=== PATIENT | female | born 1935 | race Caucasian/White ===

== ENCOUNTER 2017-07-07 23:07 | Inpatient (IN) | payer MEDICARE ==
[2017-07-08] MEDS ORDERED: Promethazine HCl 25 MG/ML VIAL ONE
[2017-07-08 00:04] LABS: #Eosinphils 0.1 thou/uL (0.0-0.7); #Lymphocytes 0.8 thou/uL (1.20-3.40); #Monocytes 0.6 thou/uL (0.11-0.59); #Neutrophils 11.3 thou/uL (1.40-6.50); %Basophils 0.3 % (0.0-1.0); %Eosinophils 0.8 % (0.0-10.0); %Monocytes 4.3 % (0.0-10.0); %Neutrophils 88.6 % (42.0-75.0); Mean Corpuscular HGB CONC 33.5 g/dL (32.0-36.0); Mean Corpuscular Hemoglobin 29.3 pg (27.0-31.0); Mean Corpuscular Volume 87.5 fl (81.0-99.0); Mean Platelet Volume 6.7 fL (7.4-10.4); Platelet Count 186 thou/uL (130-400); RBC Distribution Width 13.7 % (11.5-14.5); Red Blood Cell (RBC) Count 4.45 mill/uL (4.20-5.40); White Blood Cell (WBC) Count 12.8 thou/uL (4.8-10.8)
[2017-07-08 00:17] LABS: ALT (SGPT) 11 U/L (8-55); AST (SGOT) 14 U/L (5-34); Albumin 3.6 g/dL (3.4-4.8); Alkaline Phosphatase 62 U/L (40-150); Anion Gap 17 mmol/L (10-20); BUN (Urea Nitrogen) 29 mg/dL (9.8-20.1); Bilirubin, Total 0.4 mg/dL (0.2-1.2); Calc. Creatinine Clearance 0 mL/min (70-130); Calcium 9.1 mg/dL (7.8-10.44); Carbon Dioxide 21 mmol/L (23-31); Chloride 107 mmol/L (98-107); Estimated GFR-MDRD 34; Globulin 3.3 g/dL (2.4-3.5); Glucose 207 mg/dL (83-110); Lipase 12 U/L (8-78); Potassium 4.4 mmol/L (3.5-5.1); Protein, Total 6.9 g/dL (6.0-8.3); Sodium 141 mmol/L (136-145)
[2017-07-08 00:18] LABS: CKMB 0.8 ng/mL (0-6.6); Troponin I Less than 0.010 ng/mL (< 0.028)
[2017-07-08 03:35] LABS: Bilirubin Small (Negative); Blood, Urine Negative (Negative); Clarity Cloudy (Clear); Glucose, Urine (Dipstick) Negative (Negative); Leukocyte Small (Negative); Nitrite Positive (Negative); Protein, Urine (Dipstick) Negative (Neg-Trace); Urobilinogen 0.2 mg/dL (0.2-1.0)
[2017-07-08 03:45] LABS: Bacteria/HPF 2+ HPF (None Seen); RBC/HPF 0-3 HPF (0-3); WBC/HPF 0-3 HPF (0-3)
[2017-07-08 04:32] VITALS: BMI 30.4
[2017-07-08] MEDS ORDERED: Ondansetron ODT 4 MG TAB SL PRN (04:45)
[2017-07-08] MEDS ORDERED: Ondansetron HCl/PF 4 MG/2 ML Vial IVP PRN (04:45)
[2017-07-08] MEDS: Sodium Chloride 0.9% 1,000 ML IV SCH ×4 (05:16→13:58)
--- NOTE | 2017-07-08 07:07 | RAD ---
UPRIGHT PORTABLE CHEST 1 VIEW: Date: 07/07/17 HISTORY: 82-year-old female with nausea, vomiting, diarrhea, hypoxia, and cough. COMPARISON: 11/23/14. FINDINGS: Minimal cardiomegaly. Left ICD. Minimal scattered stable chronic linear and interstitial changes bila terally, unchanged from the prior exam. No confluent pneumonia or overt edema. IMPRESSION: Stable chronic lung changes. Stable cardiomegaly and atherosclerosis. No evidence of pneumonia or oth er overt acute process. POS: [facility]
[2017-07-08] MEDS ORDERED: Bisacodyl 5 MG TAB PO PRN (09:16)
[2017-07-08] MEDS ORDERED: Milk Of Magnesia 30 ML UDCUP PO PRN (09:16)
[2017-07-08] MEDS ORDERED: Mag-Al 1200 mg/1200 mg/30 ML UDCUP PO PRN (09:16)
[2017-07-08] MEDS ORDERED: Mag-Al Plus 1200 MG/1200 MG/120 MG/30 ML UDCUP PO PRN (10:08)
[2017-07-08] MEDS: Gabapentin 300 MG CAP PO SCH ×2 (14:42→21:34)
[2017-07-08] MEDS ORDERED: cefTRIAXone\\ROCEPHIN 1 GM in Sodium Chloride 0.9% 100 ML IVPB SCH (19:15)
[2017-07-08] MEDS ORDERED: Dextrose 50% Abboject 50 ML SYRINGE SLOW IVP PRN (19:19)
[2017-07-08] MEDS ORDERED: Insulin Regular 300 UNITS/3 ML VIAL SC PRN ×2 (19:19)
[2017-07-08] MEDS ORDERED: Dextrose 5% in Water 1,000 ML IV PRN (19:19)
[2017-07-08] MEDS: Melatonin 3 MG TAB PO SCH (21:34)
[2017-07-08] MEDS: Bisacodyl 5 MG TAB PO SCH (21:36)
[2017-07-08] MEDS: Acetaminophen 325 MG TAB PO PRN (21:48)
--- NOTE | 2017-07-08 23:52 | HP ---
DATE OF ADMISSION: 07/08/2017 CHIEF COMPLAINT: Generalized weakness with nausea and diarrhea. HISTORY OF PRESENT ILLNESS: Patient is an 82-year-old white female who reports overall worsening con ditional status since having back surgery several months ago. She has been having left mobility. Giovana velázquez reports 2 to 3 days prior to presentation to the emergency room on the day of admission. She began having loose stools, nausea, decreased appetite, overall malaise and generalized weakness. She got to the point where she was unable to get out of bed, extremely weak and presented to the emergency ro om brought by her daughters. Apparently, a day prior to the day in the emergency room, she actually fell because of her generalized weakness and was evaluated at the outside ER facility and sent home. Patient reports that she may be having some fevers and chills. She reports concentrated and dark ur ine. Denies any back pain, although she has had some diffuse abdominal discomfort. She is unsure if she had any weight loss or weight gain. She had no chest pain or shortness of breath. PAST MEDICAL HISTORY: 1. Diabetes mellitus, diet controlled. 2. Coronary artery disease, status post stent placement. 3. History of pacemaker placement. 4. History of surgical hypothyroidism. 5. History of hyperlipidemia. 6. Hypertension. 7. Generalized osteoarthritis. 8. Chronic back condition. PAST SURGICAL HISTORY: 1. Back surgery as above. 2. Thyroidectomy. 3. Hysterectomy. 4. Right knee replacement x2. 5. History of left knee replacement. 6. History of prior lumbar laminectomy previous to her recent surgery. 7. 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 8. Cholecystectomy. SOCIAL HISTORY: Patient lives alone, but lives right next to an apartment next to her daughter. She walks with a walker. Denies alcohol, smoking, or social drug use. FAMILY HISTORY: Noncontributory. ALLERGIES: She reports allergy to PENICILLIN as well as LEVAQUIN that was given to her on recent adm ission, she has taken Rocephin without allergy. CURRENT MEDICATIONS: Levothyroxine 125 mcg daily, Dulcolax 5 mg p.o. b.i.d., Lipitor 10 mg p.o. at b edtime, benazepril 20 mg daily, amlodipine 5 mg daily. REVIEW OF SYSTEMS: Patient reports in addition to above no recent URI-like symptoms. No cough repor elizabeth by patient. No recent visual changes. Patient did not check her blood sugars regularly, but rep orts her appetite was good until her recent GI symptoms. Patient denies any chest pain or shortness of breath. She has had no significant weight loss or weight gain reported. She reports no rashes or lesions and patient denies depression. PHYSICAL EXAMINATION: GENERAL: Obese white female, alert and oriented x3, but easily confused, but in no apparent distress . VITAL SIGNS: Blood pressure 138/68, respiratory rate is 16, pulse is 82. HEENT: Atraumatic, normocephalic. Extraocular movements are intact. Pupils are equal, round, and r eactive to light and accommodation. Oropharynx, mucous membranes were slightly dry. NECK: Supple. No masses palpated. CHEST: Had some faint, inspiratory rales bilaterally. HEART: Regular rate and rhythm with occasional ectopic beat. ABDOMEN: Obese, soft. Bowel sounds positive in all 4 quadrants, slight tenderness to deep palpation over the epigastric and left lower quadrant without rebound or guarding. EXTREMITIES: Shows no cyanosis, clubbing, or edema. LABORATORY AND X-RAY FINDINGS: Chest x-ray showed no acute findings. Urinalysis was consistent with UTI with 2+ bacteria and leukocyte esterase positive, wbc's positive as well. Comprehensive metabol ic panel showed signs of dehydration with elevated creatinine 1.5 and elevated BUN 29. CBC showed a white count of 12,600. ASSESSMENT AND PLAN: 1. Urinary tract infection. We will start the patient on Rocephin, which she has taken before. We will obtain urine and blood cultures, which were not done in the emergency room. This will be drawn prior to starting her antibiotics. 2. Dehydration. We will start patient on IV fluids plus oral rehydration as tolerated. 3. Diabetes mellitus. We will do Accu-Cheks q.a.c. and at bedtime and follow diabetic diet. 4. Hypertension. Continue current medications and follow up blood pressures. 5. Generalized weakness, likely secondary to #1 above. We will start patient on physical therapy an d occupational therapy. 6. Possible gastritis. If the urine cultures are negative, is likely the gastritis it is causing he r weakness. We will encourage p.o. as tolerated. We will also get a flu test just to verify this is an atypical presentation of influenza. Patient's case will be discussed with Dr. Jalyn Gerardo, who will be covering for me in the next 24 hours.
[2017-07-09] MEDS: Levothyroxine Sodium 100 MCG TAB PO SCH (06:15)
[2017-07-09] MEDS: Levothyroxine Sodium 25 MCG TAB PO SCH (06:15)
[2017-07-09 07:04] LABS: ALT (SGPT) 9 U/L (8-55); AST (SGOT) 11 U/L (5-34); Albumin 3.2 g/dL (3.4-4.8); Alkaline Phosphatase 52 U/L (40-150); Anion Gap 13 mmol/L (10-20); BUN (Urea Nitrogen) 19 mg/dL (9.8-20.1); Bilirubin, Total 0.3 mg/dL (0.2-1.2); Calc. Creatinine Clearance 50 mL/min (70-130); Calcium 9.1 mg/dL (7.8-10.44); Carbon Dioxide 21 mmol/L (23-31); Chloride 114 mmol/L (98-107); Estimated GFR-MDRD 50; Globulin 2.9 g/dL (2.4-3.5); Glucose 126 mg/dL (83-110); Protein, Total 6.1 g/dL (6.0-8.3); Sodium 144 mmol/L (136-145)
[2017-07-09 07:28] LABS: #Basophils 0.1 thou/uL (0.0-0.2); #Eosinphils 0.2 thou/uL (0.0-0.7); #Lymphocytes 1.5 thou/uL (1.20-3.40); #Monocytes 0.5 thou/uL (0.11-0.59); #Neutrophils 5.5 thou/uL (1.40-6.50); %Basophils 0.9 % (0.0-1.0); %Eosinophils 3.2 % (0.0-10.0); %Lymphocytes 19.5 % (21.0-51.0); %Neutrophils 70.5 % (42.0-75.0); Hemoglobin 11.3 g/dL (12.0-16.0); Mean Corpuscular Hemoglobin 29.8 pg (27.0-31.0); Mean Corpuscular Volume 87.5 fl (81.0-99.0); Mean Platelet Volume 6.2 fL (7.4-10.4); Platelet Count 149 thou/uL (130-400); RBC Distribution Width 13.9 % (11.5-14.5); Red Blood Cell (RBC) Count 3.79 mill/uL (4.20-5.40); White Blood Cell (WBC) Count 7.8 thou/uL (4.8-10.8)
--- NOTE | 2017-07-09 08:06 | RAD ---
CHEST ONE VIEW: HISTORY: Pneumonia. COMPARISON: 07/07/2017 FINDINGS: Portable upright chest demonstrates a left-sided transvenous pacemaker with lead position over the ri ght atrium and right ventricle. Heart is enlarged. There are patchy interstitial and, to a lesser e xtent, alveolar opacities involving the lung parenchyma. The degree of opacification has developed s azam the prior examination. There is no significant pleural effusion. No pneumothorax. IMPRESSION: Interstitial and alveolar opacities. Multilobar infiltrate. Continued surveillance. POS: [facility]
[2017-07-09] MEDS: Bisacodyl 5 MG TAB PO SCH ×2 (08:46→21:51)
[2017-07-09] MEDS: Atorvastatin Calcium 10 MG TAB PO SCH (08:46)
[2017-07-09] MEDS: Lisinopril 20 MG TAB PO SCH (08:46)
[2017-07-09] MEDS: Gabapentin 300 MG CAP PO SCH ×3 (08:46→21:50)
[2017-07-09] MEDS: Oxybutynin 5 MG TAB PO SCH (08:46)
[2017-07-09] MEDS: Folic Acid 1 MG TAB PO SCH (08:47)
[2017-07-09] MEDS: Pantoprazole 40 MG GRANULES PACKET PO SCH (08:47)
[2017-07-09] MEDS: Polyethylene Glycol 3350 17 GM Packet PO SCH (08:47)
[2017-07-09] MEDS ORDERED: Donepezil HCl 10 MG TAB PO SCH (09:00)
[2017-07-09] MEDS: Azithromycin 500 MG in Sodium Chloride 0.9% 250 ML 250 ML IVPB SCH (09:34)
[2017-07-09] MEDS: Amlodipine 5 MG TAB PO SCH (09:38)
[2017-07-09] MEDS ORDERED: cefTRIAXone\\ROCEPHIN 1 GM in Sodium Chloride 0.9% 100 ML IVPB SCH (21:00)
[2017-07-09] MEDS: Melatonin 3 MG TAB PO SCH (21:49)
[2017-07-09] MEDS: Acetaminophen 325 MG TAB PO PRN (21:50)
[2017-07-09] MEDS ORDERED: cefTRIAXone\\ROCEPHIN 1 GM, Syringe 0.4 ML in Sterile Water 9.6 ML SLOW IVP SCH (22:00)
[2017-07-09] MEDS ORDERED: cefTRIAXone\\ROCEPHIN 1 GM VIAL SLOW IVP SCH (22:15)
[2017-07-10 05:41] LABS: #Basophils 0.1 thou/uL (0.0-0.2); #Eosinphils 0.3 thou/uL (0.0-0.7); #Lymphocytes 2.1 thou/uL (1.20-3.40); #Monocytes 0.6 thou/uL (0.11-0.59); #Neutrophils 4.3 thou/uL (1.40-6.50); %Basophils 0.8 % (0.0-1.0); %Eosinophils 3.8 % (0.0-10.0); %Lymphocytes 28.3 % (21.0-51.0); %Monocytes 8.2 % (0.0-10.0); %Neutrophils 58.8 % (42.0-75.0); Hemoglobin 10.9 g/dL (12.0-16.0); Mean Corpuscular HGB CONC 31.9 g/dL (32.0-36.0); Mean Corpuscular Volume 87.9 fl (81.0-99.0); Mean Platelet Volume 6.2 fL (7.4-10.4); Platelet Count 179 thou/uL (130-400); RBC Distribution Width 13.6 % (11.5-14.5); White Blood Cell (WBC) Count 7.4 thou/uL (4.8-10.8)
[2017-07-10 05:43] LABS: Anion Gap 14 mmol/L (10-20); BUN (Urea Nitrogen) 15 mg/dL (9.8-20.1); Calc. Creatinine Clearance 52 mL/min (70-130); Calcium 9.6 mg/dL (7.8-10.44); Carbon Dioxide 23 mmol/L (23-31); Chloride 111 mmol/L (98-107); Estimated GFR-MDRD 53; Glucose 117 mg/dL (83-110); Potassium 3.7 mmol/L (3.5-5.1); Sodium 144 mmol/L (136-145)
[2017-07-10] MEDS: Levothyroxine Sodium 100 MCG TAB PO SCH (06:37)
[2017-07-10] MEDS: Levothyroxine Sodium 25 MCG TAB PO SCH (06:37)
--- NOTE | 2017-07-10 08:29 | RAD ---
PORTABLE CHEST ONE VIEW: Date: 07-10-17 Time: 5:34 a.m. History: Pneumonia. FINDINGS/IMPRESSION: Comparison is made with exams of 07-09-17, 07-07-17 and 11-23-14. Heart is enlarged. The aorta is tortuous. Left sided pacing device remains in place. Chronic changes are present. No lobar consolidation, pneumothoraces, or large effusions are identified. POS: [facility]
[2017-07-10] MEDS: Azithromycin 500 MG in Sodium Chloride 0.9% 250 ML 250 ML IVPB SCH (08:50)
[2017-07-10] MEDS: Amlodipine 5 MG TAB PO SCH (08:55)
[2017-07-10] MEDS: Polyethylene Glycol 3350 17 GM Packet PO SCH (08:55)
[2017-07-10] MEDS: Pantoprazole 40 MG GRANULES PACKET PO SCH (08:55)
[2017-07-10] MEDS: Folic Acid 1 MG TAB PO SCH (08:56)
[2017-07-10] MEDS: Oxybutynin 5 MG TAB PO SCH (08:56)
[2017-07-10] MEDS: Gabapentin 300 MG CAP PO SCH ×3 (08:56→20:55)
[2017-07-10] MEDS: Bisacodyl 5 MG TAB PO SCH ×2 (08:56→20:54)
[2017-07-10] MEDS: Lisinopril 20 MG TAB PO SCH (08:56)
[2017-07-10] MEDS: Atorvastatin Calcium 10 MG TAB PO SCH (08:56)
[2017-07-10] MEDS ORDERED: cefTRIAXone\\ROCEPHIN 1 GM VIAL SLOW IVP SCH (09:00)
[2017-07-10] MEDS: Cephalexin 250 MG CAP PO SCH (20:54)
[2017-07-10] MEDS: Melatonin 3 MG TAB PO SCH (20:55)
[2017-07-10] MEDS: Acetaminophen 325 MG TAB PO PRN (22:43)
[2017-07-11] MEDS: Levothyroxine Sodium 100 MCG TAB PO SCH (05:52)
[2017-07-11] MEDS: Levothyroxine Sodium 25 MCG TAB PO SCH (05:52)
[2017-07-11 07:06] VITALS: BP 143/82; TEMP 98.5
[2017-07-11] MEDS: Polyethylene Glycol 3350 17 GM Packet PO SCH (09:38)
[2017-07-11] MEDS: Pantoprazole 40 MG GRANULES PACKET PO SCH (09:38)
[2017-07-11] MEDS: Cephalexin 250 MG CAP PO SCH (09:39)
[2017-07-11] MEDS: Oxybutynin 5 MG TAB PO SCH (09:39)
[2017-07-11] MEDS: Amlodipine 5 MG TAB PO SCH (09:39)
[2017-07-11] MEDS: Atorvastatin Calcium 10 MG TAB PO SCH (09:39)
[2017-07-11] MEDS: Lisinopril 20 MG TAB PO SCH (09:39)
[2017-07-11] MEDS: Gabapentin 300 MG CAP PO SCH (09:39)
[2017-07-11] MEDS: Bisacodyl 5 MG TAB PO SCH (09:39)
[2017-07-11] MEDS: Folic Acid 1 MG TAB PO SCH (09:40)
--- NOTE | 2017-07-11 14:11 | DIS ---
DATE OF ADMISSION: 07/08/2017 DATE OF TRANSFER: 07/11/2017 ADMISSION DIAGNOSES: 1. Gastroenteritis. 2. Dehydration. 3. Urinary tract infection. 4. Hypertension. 5. Hypothyroidism. DISCHARGE DIAGNOSES: 1. Gastroenteritis. 2. Dehydration. 3. Urinary tract infection. 4. Hypertension. 5. Hypothyroidism. 6. Physical deconditioning. ATTENDING PHYSICIAN: Dr. Florecita Cuenca with Dr. Jalyn Gerardo covering for Dr. Cuenca on 07/09/2017, Dr. Husain covering for 07/10/2017, and Dr. Jalyn Gerardo covering on 07/11/2017. HISTORY AND PHYSICAL: Please see dictated report from the date of admission. PROCEDURES: 1. Chest x-ray from the date of admission shows stable chronic lung changes. Stable cardiomegaly and atherosclerosis. No evidence of pneumonia or other overt acute process. 2. Chest x-ray from 07/09/2017 shows interstitial and alveolar opacities. Multilobar infiltrate. Continued surveillance. 3. Chest x-ray from 07/10/2017 showed the heart is enlarged. Aorta is tortuous. Left-sided pacing device remains in place. Chronic changes are present. No lobar consolidation, pneumothoraces, or large effusions are identified. HOSPITAL COURSE: Ms. Patel is an 82-year-old female who presented to the emergency room with severe nausea, vomiting, diarrhea, and hypotension. She was aggressively hydrated with 2 liters of IV fluids in the ER and continued on the floor at a high rate resuscitation. Her blood pressures improved and we were able to restart home antihypertensive. She was also found to have urinalysis that was significant and urine culture eventually grew out E. coli sensitive to cephalosporins. She was initially treated with Rocephin and this was transitioned over to Keflex for a total of 14-day oral course. During her admission, she did have some findings on chest x-ray suggestive of possible multilobar infiltrate. She received copious fluids prior to that and had no elevation of her white count, was afebrile, and demonstrated only a dry cough. The chest x-ray was repeated the following day after Zithromax was added for additional coverage and was negative. Suspect that these changes were either atelectasis or chronic changes or early fluid overload that resolved without treatment. Therefore, the Rocephin and Zithromax were discontinued, and she was changed to oral treatment for her UTI. The patient has been significantly deconditioned from her hospital stay from her illness and thus will require PT and OT for strengthening prior to going back home. Today, she will be transferred to our swing bed unit for therapy. She also has a history of hypothyroidism. TSH performed during her hospitalization was within normal range. DISPOSITION: Transfer to swing bed. MEDICATIONS: See list. FOLLOWUP: Will be with her primary care physician, Dr. Russell in [place] per swing bed discharge. NIECY
[2017-07-12] MEDS ORDERED: Oxybutynin 5 MG TAB PO SCH (09:00)
== END 2017-07-11 12:55 | DRG 690 ==
LOC: BURERS 23:07 → OBSVTOIN 07-08 01:40 → BURMED 07-08 01:40
PROVIDERS: ADMIT Family Medicine; ATTEND Family Medicine
DX: N39.0 Urinary tract infection, site not specified (principal); I95.9 Hypotension, unspecified; E11.9 Type 2 diabetes mellitus without complications; E86.0 Dehydration; I25.10 Atherosclerotic heart disease of native coronary artery without angina pectoris; E78.5 Hyperlipidemia, unspecified; E03.9 Hypothyroidism, unspecified; B96.20 Unspecified Escherichia coli [E. coli] as the cause of diseases classified elsewhere; K29.70 Gastritis, unspecified, without bleeding; I10 Essential (primary) hypertension; Z95.5 Presence of coronary angioplasty implant and graft; Z96.651 Presence of right artificial knee joint; Z88.1 Allergy status to other antibiotic agents; Z88.0 Allergy status to penicillin
CPT/HCPCS: 36415; 36416; 51701; 71010; 80048; 80053; 81003; 81015; 82553; 83605; 83690; 83880; 84443; 84484; 85025; 87040; 87077; 87086; 87186; 87804; 93005; 96361; 96365; A4216; A4353; G8978-GP-CK; G8979-GP-CI; G8987-GO-CL; G8988-GO-CJ; J0456; J0696; J2550; J7050

== ENCOUNTER 2017-07-11 12:09 | Inpatient (IN) | payer MEDICARE ==
[2017-07-11 13:49] VITALS: BMI 29.3
[2017-07-11] MEDS ORDERED: Ondansetron HCl/PF 4 MG/2 ML Vial IVP PRN (14:10)
[2017-07-11] MEDS ORDERED: Milk Of Magnesia 30 ML UDCUP PO PRN (14:11)
[2017-07-11] MEDS ORDERED: Dextrose 50% Abboject 50 ML SYRINGE SLOW IVP PRN (14:16)
[2017-07-11] MEDS ORDERED: Dextrose 5% in Water 1,000 ML IV PRN (14:26)
[2017-07-11] MEDS: Gabapentin 300 MG CAP PO SCH ×2 (15:44→21:32)
[2017-07-11] MEDS: Insulin Regular 300 UNITS/3 ML VIAL SC PRN (18:30)
[2017-07-11] MEDS: Cephalexin 250 MG CAP PO SCH (21:31)
[2017-07-11] MEDS: Acetaminophen 325 MG TAB PO PRN (21:31)
[2017-07-11] MEDS: Melatonin 3 MG TAB PO SCH (21:32)
[2017-07-11] MEDS: Bisacodyl 5 MG TAB PO SCH (21:32)
[2017-07-12] MEDS: Acetaminophen 325 MG TAB PO PRN ×3 (02:21→15:00)
[2017-07-12] MEDS: Levothyroxine Sodium 25 MCG TAB PO SCH (06:31)
[2017-07-12] MEDS: Levothyroxine Sodium 100 MCG TAB PO SCH (06:32)
[2017-07-12] MEDS: Donepezil HCl 10 MG TAB PO SCH (09:11)
[2017-07-12] MEDS: Cephalexin 250 MG CAP PO SCH ×2 (09:11→21:43)
[2017-07-12] MEDS: Polyethylene Glycol 3350 17 GM Packet PO SCH (09:11)
[2017-07-12] MEDS: Atorvastatin Calcium 10 MG TAB PO SCH (09:11)
[2017-07-12] MEDS: Folic Acid 1 MG TAB PO SCH (09:12)
[2017-07-12] MEDS: Amlodipine 5 MG TAB PO SCH (09:12)
[2017-07-12] MEDS: Lisinopril 20 MG TAB PO SCH (09:12)
[2017-07-12] MEDS: Gabapentin 300 MG CAP PO SCH ×3 (09:12→21:43)
[2017-07-12] MEDS: Bisacodyl 5 MG TAB PO SCH ×2 (09:12→21:43)
[2017-07-12] MEDS: Pantoprazole 40 MG GRANULES PACKET PO SCH (09:12)
[2017-07-12] MEDS ORDERED: HYDROcodone/Acetaminophen 5/325 mg Tablet PO PRN (12:39)
[2017-07-12] MEDS: Insulin Regular 300 UNITS/3 ML VIAL SC PRN (18:05)
[2017-07-12] MEDS: Melatonin 3 MG TAB PO SCH (21:43)
[2017-07-13] MEDS: HYDROcodone/Acetaminophen 10/325 mg Tablet PO PRN (04:16)
[2017-07-13] MEDS: Levothyroxine Sodium 100 MCG TAB PO SCH (05:54)
[2017-07-13] MEDS: Levothyroxine Sodium 25 MCG TAB PO SCH (05:54)
[2017-07-13] MEDS: Cephalexin 250 MG CAP PO SCH ×2 (09:32→22:26)
[2017-07-13] MEDS: Gabapentin 300 MG CAP PO SCH ×3 (09:32→22:27)
[2017-07-13] MEDS: Amlodipine 5 MG TAB PO SCH (09:32)
[2017-07-13] MEDS: Donepezil HCl 10 MG TAB PO SCH (09:33)
[2017-07-13] MEDS: Lisinopril 20 MG TAB PO SCH (09:33)
[2017-07-13] MEDS: Bisacodyl 5 MG TAB PO SCH ×2 (09:33→22:27)
[2017-07-13] MEDS: Polyethylene Glycol 3350 17 GM Packet PO SCH (09:33)
[2017-07-13] MEDS: Pantoprazole 40 MG GRANULES PACKET PO SCH (09:33)
[2017-07-13] MEDS: Folic Acid 1 MG TAB PO SCH (09:33)
[2017-07-13] MEDS: Atorvastatin Calcium 10 MG TAB PO SCH (09:33)
[2017-07-13] MEDS ORDERED: Bisacodyl 10 MG SUPP PR PRN (16:37)
[2017-07-13] MEDS ORDERED: Fleet Enema 133 ML BOT PR PRN (16:39)
[2017-07-13] MEDS: Insulin Regular 300 UNITS/3 ML VIAL SC PRN (18:14)
[2017-07-13] MEDS: Melatonin 3 MG TAB PO SCH (22:26)
[2017-07-14] MEDS: HYDROcodone/Acetaminophen 10/325 mg Tablet PO PRN (00:36)
[2017-07-14] MEDS: Levothyroxine Sodium 100 MCG TAB PO SCH (05:56)
[2017-07-14] MEDS: Levothyroxine Sodium 25 MCG TAB PO SCH (05:56)
[2017-07-14] MEDS: Pantoprazole 40 MG GRANULES PACKET PO SCH (09:52)
[2017-07-14] MEDS: Bisacodyl 5 MG TAB PO SCH ×2 (09:53→20:59)
[2017-07-14] MEDS: Atorvastatin Calcium 10 MG TAB PO SCH (09:53)
[2017-07-14] MEDS: Lisinopril 20 MG TAB PO SCH (09:53)
[2017-07-14] MEDS: Donepezil HCl 10 MG TAB PO SCH (09:53)
[2017-07-14] MEDS: Amlodipine 5 MG TAB PO SCH (09:53)
[2017-07-14] MEDS: Cephalexin 250 MG CAP PO SCH ×2 (09:53→20:59)
[2017-07-14] MEDS: Folic Acid 1 MG TAB PO SCH (09:54)
[2017-07-14] MEDS: Gabapentin 300 MG CAP PO SCH ×3 (09:54→20:59)
[2017-07-14] MEDS: Polyethylene Glycol 3350 17 GM Packet PO SCH (09:54)
[2017-07-14] MEDS: Insulin Regular 300 UNITS/3 ML VIAL SC PRN ×3 (12:47→21:11)
[2017-07-14] MEDS: Melatonin 3 MG TAB PO SCH (20:59)
[2017-07-15] MEDS: Levothyroxine Sodium 100 MCG TAB PO SCH (05:03)
[2017-07-15] MEDS: Levothyroxine Sodium 25 MCG TAB PO SCH (05:03)
[2017-07-15] MEDS ORDERED: Cephalexin 250 MG CAP ONE (09:09)
[2017-07-15] MEDS: Donepezil HCl 10 MG TAB PO SCH (09:12)
[2017-07-15] MEDS: Lisinopril 20 MG TAB PO SCH (09:12)
[2017-07-15] MEDS: Polyethylene Glycol 3350 17 GM Packet PO SCH (09:12)
[2017-07-15] MEDS: Atorvastatin Calcium 10 MG TAB PO SCH (09:13)
[2017-07-15] MEDS: Folic Acid 1 MG TAB PO SCH (09:13)
[2017-07-15] MEDS: Amlodipine 5 MG TAB PO SCH (09:13)
[2017-07-15] MEDS: Bisacodyl 5 MG TAB PO SCH ×2 (09:14→20:10)
[2017-07-15] MEDS: Cephalexin 250 MG CAP PO SCH ×2 (09:14→20:10)
[2017-07-15] MEDS: Gabapentin 300 MG CAP PO SCH ×3 (09:14→20:10)
[2017-07-15] MEDS: Pantoprazole 40 MG GRANULES PACKET PO SCH (09:14)
[2017-07-15] MEDS: traMADol HCl 50 MG TAB PO PRN ×2 (09:15→20:10)
[2017-07-15] MEDS: Insulin Regular 300 UNITS/3 ML VIAL SC PRN ×2 (13:40→17:49)
[2017-07-15] MEDS: Melatonin 3 MG TAB PO SCH (20:10)
[2017-07-16] MEDS: Levothyroxine Sodium 25 MCG TAB PO SCH (04:57)
[2017-07-16] MEDS: traMADol HCl 50 MG TAB PO PRN ×2 (04:57→09:24)
[2017-07-16] MEDS: Levothyroxine Sodium 100 MCG TAB PO SCH (04:57)
[2017-07-16] MEDS: Polyethylene Glycol 3350 17 GM Packet PO SCH (09:21)
[2017-07-16] MEDS: Amlodipine 5 MG TAB PO SCH (09:22)
[2017-07-16] MEDS: Acetaminophen 325 MG TAB PO PRN (09:22)
[2017-07-16] MEDS: Gabapentin 300 MG CAP PO SCH ×3 (09:22→22:47)
[2017-07-16] MEDS: Folic Acid 1 MG TAB PO SCH (09:23)
[2017-07-16] MEDS: Atorvastatin Calcium 10 MG TAB PO SCH (09:23)
[2017-07-16] MEDS: Bisacodyl 5 MG TAB PO SCH ×2 (09:23→22:48)
[2017-07-16] MEDS: Lisinopril 20 MG TAB PO SCH (09:23)
[2017-07-16] MEDS: Cephalexin 250 MG CAP PO SCH ×2 (09:23→22:46)
[2017-07-16] MEDS: Pantoprazole 40 MG GRANULES PACKET PO SCH (09:24)
[2017-07-16] MEDS: Donepezil HCl 10 MG TAB PO SCH (09:24)
[2017-07-16] MEDS: Insulin Regular 300 UNITS/3 ML VIAL SC PRN ×2 (13:22→18:15)
[2017-07-16] MEDS: Ondansetron ODT 4 MG TAB PO PRN (15:29)
[2017-07-16 19:25] LABS: #Basophils 0.1 thou/uL (0.0-0.2); #Eosinphils 0.1 thou/uL (0.0-0.7); #Lymphocytes 1.6 thou/uL (1.20-3.40); #Monocytes 0.3 thou/uL (0.11-0.59); #Neutrophils 7.5 thou/uL (1.40-6.50); %Basophils 0.8 % (0.0-1.0); %Eosinophils 0.6 % (0.0-10.0); %Lymphocytes 16.7 % (21.0-51.0); %Monocytes 3.4 % (0.0-10.0); %Neutrophils 78.5 % (42.0-75.0); Hemoglobin 11.8 g/dL (12.0-16.0); Mean Corpuscular HGB CONC 32.4 g/dL (32.0-36.0); Mean Corpuscular Hemoglobin 28.4 pg (27.0-31.0); Mean Corpuscular Volume 87.6 fl (81.0-99.0); Mean Platelet Volume 6.5 fL (7.4-10.4); Platelet Count 234 thou/uL (130-400); RBC Distribution Width 13.7 % (11.5-14.5); Red Blood Cell (RBC) Count 4.16 mill/uL (4.20-5.40); White Blood Cell (WBC) Count 9.6 thou/uL (4.8-10.8)
[2017-07-16 19:43] LABS: ALT (SGPT) 13 U/L (8-55); AST (SGOT) 13 U/L (5-34); Albumin 3.6 g/dL (3.4-4.8); Alkaline Phosphatase 70 U/L (40-150); Anion Gap 17 mmol/L (10-20); BUN (Urea Nitrogen) 17 mg/dL (9.8-20.1); Bilirubin, Total 0.4 mg/dL (0.2-1.2); Calc. Creatinine Clearance 42 mL/min (70-130); Calcium 9.6 mg/dL (7.8-10.44); Carbon Dioxide 25 mmol/L (23-31); Chloride 101 mmol/L (98-107); Estimated GFR-MDRD 41; Globulin 3.5 g/dL (2.4-3.5); Glucose 266 mg/dL (83-110); Potassium 5.2 mmol/L (3.5-5.1); Protein, Total 7.1 g/dL (6.0-8.3); Sodium 138 mmol/L (136-145)
--- NOTE | 2017-07-16 22:16 | RAD ---
PORTABLE CHEST 07/16/17 An AP portable film at 1900 is compared with 07/10 study. There still appears to be some infiltrate in the left lung base, but is no worse than before. Changes over the interval are minimal. There is no congestive change or pleural effusion. Mild cardiomegaly is stable. The cardiac pacer is present as usual. The right lung is clear. IMPRESSION: There is still some left basilar haziness that is presumed to be pneumonia with only minimal changes over time. POS: [facility]
[2017-07-16] MEDS: Oxybutynin 5 MG TAB PO SCH (22:47)
[2017-07-16] MEDS: Melatonin 3 MG TAB PO SCH (22:51)
[2017-07-17] MEDS: Levothyroxine Sodium 25 MCG TAB PO SCH (06:01)
[2017-07-17] MEDS: Levothyroxine Sodium 100 MCG TAB PO SCH (06:01)
[2017-07-17] MEDS: Polyethylene Glycol 3350 17 GM Packet PO SCH (08:50)
[2017-07-17] MEDS: Pantoprazole 40 MG GRANULES PACKET PO SCH (08:50)
[2017-07-17] MEDS: Donepezil HCl 10 MG TAB PO SCH (08:50)
[2017-07-17] MEDS: Amlodipine 5 MG TAB PO SCH (08:50)
[2017-07-17] MEDS: Atorvastatin Calcium 10 MG TAB PO SCH (08:51)
[2017-07-17] MEDS: Folic Acid 1 MG TAB PO SCH (08:51)
[2017-07-17] MEDS: Cephalexin 250 MG CAP PO SCH (08:51)
[2017-07-17] MEDS: Bisacodyl 5 MG TAB PO SCH ×2 (08:51→20:15)
[2017-07-17] MEDS: Gabapentin 300 MG CAP PO SCH ×3 (08:51→20:15)
[2017-07-17] MEDS: Lisinopril 20 MG TAB PO SCH (08:51)
[2017-07-17] MEDS: Insulin Regular 300 UNITS/3 ML VIAL SC PRN ×2 (13:01→18:19)
[2017-07-17] MEDS: Melatonin 3 MG TAB PO SCH (20:15)
[2017-07-17] MEDS: Oxybutynin 5 MG TAB PO SCH (20:16)
[2017-07-18] MEDS: Levothyroxine Sodium 100 MCG TAB PO SCH (06:16)
[2017-07-18] MEDS: Levothyroxine Sodium 25 MCG TAB PO SCH (06:17)
[2017-07-18] MEDS: Amlodipine 5 MG TAB PO SCH (08:45)
[2017-07-18] MEDS: Atorvastatin Calcium 10 MG TAB PO SCH (08:45)
[2017-07-18] MEDS: Donepezil HCl 10 MG TAB PO SCH (08:46)
[2017-07-18] MEDS: Bisacodyl 5 MG TAB PO SCH ×2 (08:46→21:39)
[2017-07-18] MEDS: Folic Acid 1 MG TAB PO SCH (08:47)
[2017-07-18] MEDS: Gabapentin 300 MG CAP PO SCH ×3 (08:47→21:39)
[2017-07-18] MEDS: Lisinopril 20 MG TAB PO SCH (08:47)
[2017-07-18] MEDS: Pantoprazole 40 MG GRANULES PACKET PO SCH (08:47)
[2017-07-18] MEDS: Polyethylene Glycol 3350 17 GM Packet PO SCH (08:47)
[2017-07-18] MEDS: Insulin Regular 300 UNITS/3 ML VIAL SC PRN (13:04)
[2017-07-18] MEDS: Melatonin 3 MG TAB PO SCH (21:38)
[2017-07-18] MEDS: Oxybutynin 5 MG TAB PO SCH (21:39)
[2017-07-18] MEDS: HYDROcodone/Acetaminophen 10/325 mg Tablet PO PRN (23:19)
[2017-07-19] MEDS: Levothyroxine Sodium 100 MCG TAB PO SCH (06:31)
[2017-07-19] MEDS: Levothyroxine Sodium 25 MCG TAB PO SCH (06:31)
[2017-07-19] MEDS: Folic Acid 1 MG TAB PO SCH (08:41)
[2017-07-19] MEDS: Amlodipine 5 MG TAB PO SCH ×2 (08:41→08:44)
[2017-07-19] MEDS: Donepezil HCl 10 MG TAB PO SCH (08:41)
[2017-07-19] MEDS: Lisinopril 20 MG TAB PO SCH (08:45)
[2017-07-19] MEDS: Pantoprazole 40 MG GRANULES PACKET PO SCH (08:45)
[2017-07-19] MEDS: Gabapentin 300 MG CAP PO SCH ×3 (08:45→22:30)
[2017-07-19] MEDS: Bisacodyl 5 MG TAB PO SCH ×2 (08:45→22:30)
[2017-07-19] MEDS: Atorvastatin Calcium 10 MG TAB PO SCH (08:45)
[2017-07-19] MEDS: Polyethylene Glycol 3350 17 GM Packet PO SCH (08:45)
[2017-07-19] MEDS: Insulin Regular 300 UNITS/3 ML VIAL SC PRN ×3 (12:15→22:29)
[2017-07-19] MEDS: Melatonin 3 MG TAB PO SCH (22:29)
[2017-07-19] MEDS: Oxybutynin 5 MG TAB PO SCH (22:30)
[2017-07-19] MEDS: HYDROcodone/Acetaminophen 10/325 mg Tablet PO PRN (22:30)
[2017-07-20] MEDS: Levothyroxine Sodium 25 MCG TAB PO SCH (05:49)
[2017-07-20] MEDS: Levothyroxine Sodium 100 MCG TAB PO SCH (05:49)
[2017-07-20] MEDS: Donepezil HCl 10 MG TAB PO SCH (08:52)
[2017-07-20] MEDS: Folic Acid 1 MG TAB PO SCH (08:52)
[2017-07-20] MEDS: Atorvastatin Calcium 10 MG TAB PO SCH (08:52)
[2017-07-20] MEDS: Lisinopril 20 MG TAB PO SCH (08:52)
[2017-07-20] MEDS: Gabapentin 300 MG CAP PO SCH ×3 (08:53→20:24)
[2017-07-20] MEDS: Polyethylene Glycol 3350 17 GM Packet PO SCH (08:54)
[2017-07-20] MEDS: Pantoprazole 40 MG GRANULES PACKET PO SCH (08:54)
[2017-07-20] MEDS: Bisacodyl 5 MG TAB PO SCH ×2 (08:54→20:25)
[2017-07-20] MEDS: Amlodipine 5 MG TAB PO SCH (09:02)
[2017-07-20] MEDS: Insulin Regular 300 UNITS/3 ML VIAL SC PRN ×3 (12:35→20:25)
[2017-07-20] MEDS: Melatonin 3 MG TAB PO SCH (20:24)
[2017-07-20] MEDS: Oxybutynin 5 MG TAB PO SCH (20:25)
[2017-07-21] MEDS: Levothyroxine Sodium 25 MCG TAB PO SCH (05:35)
[2017-07-21] MEDS: Levothyroxine Sodium 100 MCG TAB PO SCH (05:36)
[2017-07-21] MEDS: Pantoprazole 40 MG GRANULES PACKET PO SCH (08:53)
[2017-07-21] MEDS: Donepezil HCl 10 MG TAB PO SCH (08:53)
[2017-07-21] MEDS: Gabapentin 300 MG CAP PO SCH ×3 (08:53→21:37)
[2017-07-21] MEDS: Folic Acid 1 MG TAB PO SCH (08:54)
[2017-07-21] MEDS: Atorvastatin Calcium 10 MG TAB PO SCH (08:54)
[2017-07-21] MEDS: Bisacodyl 5 MG TAB PO SCH ×2 (08:54→21:37)
[2017-07-21] MEDS: Amlodipine 5 MG TAB PO SCH (08:55)
[2017-07-21] MEDS: Lisinopril 20 MG TAB PO SCH (08:55)
[2017-07-21] MEDS: Polyethylene Glycol 3350 17 GM Packet PO SCH (08:56)
[2017-07-21] MEDS: Insulin Regular 300 UNITS/3 ML VIAL SC PRN ×3 (08:56→21:37)
[2017-07-21] MEDS: Melatonin 3 MG TAB PO SCH (21:36)
[2017-07-21] MEDS: Oxybutynin 5 MG TAB PO SCH (21:36)
[2017-07-22] MEDS: traMADol HCl 50 MG TAB PO PRN ×2 (00:57→22:42)
[2017-07-22] MEDS: Levothyroxine Sodium 25 MCG TAB PO SCH (06:27)
[2017-07-22] MEDS: Levothyroxine Sodium 100 MCG TAB PO SCH (06:27)
--- NOTE | 2017-07-22 07:06 | RAD ---
PORTABLE CHEST: Date: 07/22/17 An AP portable film at 0544 hours is compared with the 07/16/17 study. FINDINGS: While the left base is not seen optimally, there does appear to be slight improvement in the infiltra te here. The right lung is relatively clear. Cardiomegaly is unchanged and there are no congestive fi ndings. No effusions are seen. IMPRESSION: While not seen optimally, there is some improvement in the left basilar infiltrate since 07/16/17. POS: [facility]
[2017-07-22] MEDS: Bisacodyl 5 MG TAB PO SCH ×2 (08:53→20:56)
[2017-07-22] MEDS: Lisinopril 20 MG TAB PO SCH (08:53)
[2017-07-22] MEDS: Polyethylene Glycol 3350 17 GM Packet PO SCH (08:53)
[2017-07-22] MEDS: Folic Acid 1 MG TAB PO SCH (08:54)
[2017-07-22] MEDS: Pantoprazole 40 MG GRANULES PACKET PO SCH (08:54)
[2017-07-22] MEDS: Atorvastatin Calcium 10 MG TAB PO SCH (08:54)
[2017-07-22] MEDS: Donepezil HCl 10 MG TAB PO SCH (08:54)
[2017-07-22] MEDS: Gabapentin 300 MG CAP PO SCH ×3 (08:54→20:31)
[2017-07-22] MEDS: Amlodipine 5 MG TAB PO SCH (08:54)
[2017-07-22] MEDS: Insulin Regular 300 UNITS/3 ML VIAL SC PRN ×3 (12:51→20:38)
[2017-07-22] MEDS: Melatonin 3 MG TAB PO SCH (20:31)
[2017-07-22] MEDS: Oxybutynin 5 MG TAB PO SCH (20:31)
[2017-07-23] MEDS: HYDROcodone/Acetaminophen 10/325 mg Tablet PO PRN ×2 (00:19→13:57)
[2017-07-23] MEDS: Levothyroxine Sodium 100 MCG TAB PO SCH (06:37)
[2017-07-23] MEDS: Levothyroxine Sodium 25 MCG TAB PO SCH (06:37)
[2017-07-23] MEDS: Polyethylene Glycol 3350 17 GM Packet PO SCH (08:32)
[2017-07-23] MEDS: Amlodipine 5 MG TAB PO SCH (08:32)
[2017-07-23] MEDS: Lisinopril 20 MG TAB PO SCH (08:32)
[2017-07-23] MEDS: Donepezil HCl 10 MG TAB PO SCH (08:32)
[2017-07-23] MEDS: Folic Acid 1 MG TAB PO SCH (08:32)
[2017-07-23] MEDS: Atorvastatin Calcium 10 MG TAB PO SCH (08:33)
[2017-07-23] MEDS: Insulin Regular 300 UNITS/3 ML VIAL SC PRN ×4 (08:33→21:06)
[2017-07-23] MEDS: Pantoprazole 40 MG GRANULES PACKET PO SCH (08:33)
[2017-07-23] MEDS: Gabapentin 300 MG CAP PO SCH (08:33)
[2017-07-23] MEDS: Bisacodyl 5 MG TAB PO SCH ×2 (10:00→21:08)
[2017-07-23] MEDS: Acetaminophen 325 MG TAB PO PRN (17:59)
--- NOTE | 2017-07-23 20:05 | RAD ---
LEFT WRIST THREE VIEWS: Date: 07-23-17 FINDINGS: There are substantial degenerative changes in the first carpal metacarpal joint. There probably was a n old fracture at the base of the first metacarpal. No acute fractures were identified. There is some calcification in the region of the triangular fibrocartilage. This could sometimes be seen in variou s deposition diseases. The scapholunate distance is a little difficult to assess accurately in this p atient, but may be borderline. The remaining carpals appear intact. Also noted were severe degenerati ve changes of the IP joint of the thumb. IMPRESSION: Chronic changes as listed above. No acute bony findings. POS: [facility]
--- NOTE | 2017-07-23 20:07 | RAD ---
LEFT HAND THREE VIEWS: Date: 07-23-17 FINDINGS: No acute fracture was seen. Severe degenerative changes are present in the IP joint of the thumb and the PIP joint of the index finger. Lesser degenerative changes are seen in all other IP joints. The M CP joints are relatively uninvolved. Moderately severe arthritis is seen in the first carpal metacarp al joint. Some calcification of the triangular fibrocartilage is seen in the medial compartment of th e wrist. IMPRESSION: Chronic and somewhat severe degenerative changes as noted. POS: [facility]
[2017-07-23] MEDS: Melatonin 3 MG TAB PO SCH (21:07)
[2017-07-23] MEDS: Oxybutynin 5 MG TAB PO SCH (21:08)
[2017-07-23] MEDS: Gabapentin 100 MG CAP PO SCH (21:09)
[2017-07-24] MEDS: Levothyroxine Sodium 25 MCG TAB PO SCH (05:15)
[2017-07-24] MEDS: Levothyroxine Sodium 100 MCG TAB PO SCH (05:15)
[2017-07-24] MEDS: Lisinopril 20 MG TAB PO SCH (09:00)
[2017-07-24] MEDS: Gabapentin 100 MG CAP PO SCH (09:00)
[2017-07-24] MEDS: Atorvastatin Calcium 10 MG TAB PO SCH (09:00)
[2017-07-24] MEDS: Amlodipine 5 MG TAB PO SCH (09:00)
[2017-07-24] MEDS: Pantoprazole 40 MG GRANULES PACKET PO SCH (09:00)
[2017-07-24] MEDS: Folic Acid 1 MG TAB PO SCH (09:01)
[2017-07-24] MEDS: Polyethylene Glycol 3350 17 GM Packet PO SCH (09:01)
[2017-07-24] MEDS: Donepezil HCl 10 MG TAB PO SCH (09:01)
[2017-07-24] MEDS: Bisacodyl 5 MG TAB PO SCH ×2 (09:01→22:04)
[2017-07-24] MEDS: Insulin Regular 300 UNITS/3 ML VIAL SC PRN ×3 (09:02→17:29)
[2017-07-24] MEDS: GLIPIZIDE 2.5 MG PO SCH (11:11)
[2017-07-24] MEDS: traMADol HCl 50 MG TAB PO PRN ×2 (13:24→22:40)
[2017-07-24] MEDS: Acetaminophen 325 MG TAB PO PRN (17:29)
[2017-07-24 19:00] LABS: Hemoglobin 12.8 g/dL (12.0-16.0); Lymphocytes 16 % (21-51); MDiff Complete? YES; Mean Corpuscular HGB CONC 33.6 g/dL (32.0-36.0); Mean Corpuscular Hemoglobin 28.8 pg (27.0-31.0); Mean Corpuscular Volume 85.5 fl (81.0-99.0); Monocytes 8 % (0-10); Neutrophil 74 % (42-75); Platelet Count 233 thou/uL (130-400); RBC Distribution Width 12.8 % (11.5-14.5); Reactive Lymphocytes 1 % (0-10); Red Blood Cell (RBC) Count 4.44 mill/uL (4.20-5.40); White Blood Cell (WBC) Count 12.8 thou/uL (4.8-10.8)
[2017-07-24 19:03] LABS: ALT (SGPT) 13 U/L (8-55); AST (SGOT) 12 U/L (5-34); Albumin 3.9 g/dL (3.4-4.8); Alkaline Phosphatase 80 U/L (40-150); Anion Gap 18 mmol/L (10-20); BUN (Urea Nitrogen) 19 mg/dL (9.8-20.1); Bilirubin, Total 0.6 mg/dL (0.2-1.2); Calc. Creatinine Clearance 45 mL/min (70-130); Calcium 10.2 mg/dL (7.8-10.44); Carbon Dioxide 23 mmol/L (23-31); Chloride 99 mmol/L (98-107); Estimated GFR-MDRD 44; Globulin 3.8 g/dL (2.4-3.5); Glucose 197 mg/dL (83-110); Potassium 4.5 mmol/L (3.5-5.1); Protein, Total 7.7 g/dL (6.0-8.3); Sodium 135 mmol/L (136-145)
[2017-07-24 21:34] LABS: Bilirubin Negative (Negative); Blood, Urine Trace (Negative); Clarity Clear (Clear); Glucose, Urine (Dipstick) Negative (Negative); Leukocyte Negative (Negative); Nitrite Negative (Negative); Protein, Urine (Dipstick) Negative (Neg-Trace); Specific Gravity, Urine 1.015 (1.005-1.030); Urobilinogen 0.2 mg/dL (0.2-1.0); pH, Urine 7.5 (5.0-9.0)
[2017-07-24 21:40] LABS: Bacteria/HPF None Seen HPF (None Seen); RBC/HPF 0-3 HPF (0-3); Squamous Epithelial 0-3 HPF (0-3); WBC/HPF 0-3 HPF (0-3)
[2017-07-24] MEDS: Melatonin 3 MG TAB PO SCH (22:03)
[2017-07-24] MEDS: Sulfameth/Trimethoprim DS 800-160mg TAB PO SCH (22:04)
[2017-07-25] MEDS: traMADol HCl 50 MG TAB PO PRN ×2 (04:09→21:51)
[2017-07-25] MEDS: Levothyroxine Sodium 25 MCG TAB PO SCH (06:19)
[2017-07-25] MEDS: Levothyroxine Sodium 100 MCG TAB PO SCH (06:19)
[2017-07-25] MEDS: HYDROcodone/Acetaminophen 10/325 mg Tablet PO PRN (06:19)
--- NOTE | 2017-07-25 07:08 | RAD ---
PORTABLE CHEST: Date: 07/24/17 An AP portable film at 2023 hours is compared with the 07/22/17 study. FINDINGS: The cardiac size is unchanged. There are no congestive findings. The right lung is clear. There is st ill a little bit of left basilar haziness, but it has probably improved slightly since 07/22/17. The cardiac pacer remains in place. IMPRESSION: Slight improvement since 07/22/17. POS: [facility]
[2017-07-25] MEDS: Pantoprazole 40 MG GRANULES PACKET PO SCH (10:17)
[2017-07-25] MEDS: Folic Acid 1 MG TAB PO SCH (10:17)
[2017-07-25] MEDS: Donepezil HCl 10 MG TAB PO SCH (10:17)
[2017-07-25] MEDS: Atorvastatin Calcium 10 MG TAB PO SCH (10:17)
[2017-07-25] MEDS: Bisacodyl 5 MG TAB PO SCH ×2 (10:17→21:41)
[2017-07-25] MEDS: Amlodipine 5 MG TAB PO SCH (10:17)
[2017-07-25] MEDS: Sulfameth/Trimethoprim DS 800-160mg TAB PO SCH ×2 (10:17→21:41)
[2017-07-25] MEDS: Lisinopril 20 MG TAB PO SCH (10:18)
[2017-07-25] MEDS: Polyethylene Glycol 3350 17 GM Packet PO SCH (10:19)
[2017-07-25] MEDS: GLIPIZIDE 2.5 MG PO SCH (10:20)
[2017-07-25] MEDS: Insulin Regular 300 UNITS/3 ML VIAL SC PRN ×3 (10:21→18:53)
[2017-07-25] MEDS: Ondansetron ODT 4 MG TAB PO PRN (14:36)
[2017-07-25] MEDS: Mag-Al Plus 1200 MG/1200 MG/120 MG/30 ML UDCUP PO PRN (21:37)
[2017-07-25] MEDS: Melatonin 3 MG TAB PO SCH (21:40)
[2017-07-26] MEDS: Levothyroxine Sodium 100 MCG TAB PO SCH (05:24)
[2017-07-26] MEDS: Levothyroxine Sodium 25 MCG TAB PO SCH (05:24)
[2017-07-26] MEDS: Pantoprazole 40 MG GRANULES PACKET PO SCH (09:29)
[2017-07-26] MEDS: Polyethylene Glycol 3350 17 GM Packet PO SCH (09:30)
[2017-07-26] MEDS: Sulfameth/Trimethoprim DS 800-160mg TAB PO SCH ×2 (09:30→20:51)
[2017-07-26] MEDS: Donepezil HCl 10 MG TAB PO SCH (09:30)
[2017-07-26] MEDS: Folic Acid 1 MG TAB PO SCH (09:30)
[2017-07-26] MEDS: Bisacodyl 5 MG TAB PO SCH ×2 (09:30→20:51)
[2017-07-26] MEDS: GLIPIZIDE 2.5 MG PO SCH (09:31)
[2017-07-26] MEDS: Insulin Regular 300 UNITS/3 ML VIAL SC PRN ×4 (09:35→21:07)
[2017-07-26] MEDS: Atorvastatin Calcium 10 MG TAB PO SCH (13:05)
[2017-07-26] MEDS: Lisinopril 20 MG TAB PO SCH (13:33)
[2017-07-26] MEDS: Amlodipine 5 MG TAB PO SCH (13:33)
[2017-07-26] MEDS: Mag-Al Plus 1200 MG/1200 MG/120 MG/30 ML UDCUP PO PRN (13:56)
[2017-07-26] MEDS: traMADol HCl 50 MG TAB PO PRN ×2 (14:06→20:51)
[2017-07-26] MEDS: Melatonin 3 MG TAB PO SCH (20:51)
[2017-07-26] MEDS: HYDROcodone/Acetaminophen 10/325 mg Tablet PO PRN (22:43)
[2017-07-27] MEDS: Ondansetron ODT 4 MG TAB PO PRN (05:17)
[2017-07-27] MEDS: Levothyroxine Sodium 100 MCG TAB PO SCH (05:17)
[2017-07-27] MEDS: Levothyroxine Sodium 25 MCG TAB PO SCH (05:17)
[2017-07-27] MEDS: HYDROcodone/Acetaminophen 10/325 mg Tablet PO PRN ×2 (05:31→13:47)
[2017-07-27] MEDS: Mag-Al Plus 1200 MG/1200 MG/120 MG/30 ML UDCUP PO PRN ×2 (05:31→12:13)
[2017-07-27] MEDS: Amlodipine 5 MG TAB PO SCH (09:53)
[2017-07-27] MEDS: Bisacodyl 5 MG TAB PO SCH ×2 (09:54→21:47)
[2017-07-27] MEDS: Lisinopril 20 MG TAB PO SCH (09:54)
[2017-07-27] MEDS: Polyethylene Glycol 3350 17 GM Packet PO SCH (09:54)
[2017-07-27] MEDS: GLIPIZIDE 2.5 MG PO SCH (09:54)
[2017-07-27] MEDS: Sulfameth/Trimethoprim DS 800-160mg TAB PO SCH ×2 (09:54→21:47)
[2017-07-27] MEDS: Atorvastatin Calcium 10 MG TAB PO SCH (09:54)
[2017-07-27] MEDS: Pantoprazole 40 MG GRANULES PACKET PO SCH (09:55)
[2017-07-27] MEDS: Folic Acid 1 MG TAB PO SCH (09:55)
[2017-07-27] MEDS: Donepezil HCl 10 MG TAB PO SCH (09:55)
[2017-07-27] MEDS: traMADol HCl 50 MG TAB PO PRN (12:12)
[2017-07-27] MEDS ORDERED: Simethicone Chewable 80 MG TAB PO PRN (13:34)
[2017-07-27] MEDS: Acetaminophen 325 MG TAB PO PRN (18:10)
[2017-07-27] MEDS: Melatonin 3 MG TAB PO SCH (21:46)
[2017-07-28] MEDS: Levothyroxine Sodium 25 MCG TAB PO SCH (06:16)
[2017-07-28] MEDS: Levothyroxine Sodium 100 MCG TAB PO SCH (06:16)
[2017-07-28] MEDS: traMADol HCl 50 MG TAB PO PRN (09:17)
[2017-07-28] MEDS: GLIPIZIDE 2.5 MG PO SCH (09:22)
[2017-07-28] MEDS: Atorvastatin Calcium 10 MG TAB PO SCH (09:22)
[2017-07-28] MEDS: Folic Acid 1 MG TAB PO SCH (09:22)
[2017-07-28] MEDS: Lisinopril 20 MG TAB PO SCH (09:23)
[2017-07-28] MEDS: Polyethylene Glycol 3350 17 GM Packet PO SCH (09:23)
[2017-07-28] MEDS: Sulfameth/Trimethoprim DS 800-160mg TAB PO SCH ×2 (09:24→21:17)
[2017-07-28] MEDS: Pantoprazole 40 MG GRANULES PACKET PO SCH (09:24)
[2017-07-28] MEDS: Donepezil HCl 10 MG TAB PO SCH (09:24)
[2017-07-28] MEDS: Insulin Regular 300 UNITS/3 ML VIAL SC PRN ×2 (09:40→21:46)
[2017-07-28] MEDS: Amlodipine 5 MG TAB PO SCH ×2 (10:08→12:11)
[2017-07-28] MEDS: Bisacodyl 5 MG TAB PO SCH ×3 (10:08→21:20)
[2017-07-28] MEDS: HYDROcodone/Acetaminophen 10/325 mg Tablet PO PRN ×2 (14:58→21:18)
[2017-07-28] MEDS ORDERED: Sodium Chloride 0.9% 20 ML ONE (16:09)
[2017-07-28 16:27] LABS: #Eosinphils 0.1 thou/uL (0.0-0.7); #Lymphocytes 1.1 thou/uL (1.20-3.40); #Monocytes 0.8 thou/uL (0.11-0.59); #Neutrophils 5.8 thou/uL (1.40-6.50); %Basophils 0.6 % (0.0-1.0); %Eosinophils 0.9 % (0.0-10.0); %Lymphocytes 13.9 % (21.0-51.0); %Monocytes 10.6 % (0.0-10.0); Hemoglobin 12.3 g/dL (12.0-16.0); Mean Corpuscular Hemoglobin 28.7 pg (27.0-31.0); Mean Corpuscular Volume 84.5 fl (81.0-99.0); Mean Platelet Volume 6.5 fL (7.4-10.4); Platelet Count 214 thou/uL (130-400); RBC Distribution Width 12.7 % (11.5-14.5); White Blood Cell (WBC) Count 7.9 thou/uL (4.8-10.8)
[2017-07-28 16:50] LABS: ALT (SGPT) 14 U/L (8-55); AST (SGOT) 11 U/L (5-34); Albumin 3.7 g/dL (3.4-4.8); Alkaline Phosphatase 89 U/L (40-150); Anion Gap 17 mmol/L (10-20); BUN (Urea Nitrogen) 24 mg/dL (9.8-20.1); Bilirubin, Total 0.4 mg/dL (0.2-1.2); Calc. Creatinine Clearance 37 mL/min (70-130); Calcium 9.7 mg/dL (7.8-10.44); Carbon Dioxide 24 mmol/L (23-31); Chloride 95 mmol/L (98-107); Estimated GFR-MDRD 36; Globulin 3.8 g/dL (2.4-3.5); Glucose 189 mg/dL (83-110); Potassium 4.6 mmol/L (3.5-5.1); Protein, Total 7.5 g/dL (6.0-8.3); Sodium 131 mmol/L (136-145)
[2017-07-28] MEDS: Sodium Chloride 0.9% 1,000 ML IV SCH (18:42)
[2017-07-28] MEDS: Melatonin 3 MG TAB PO SCH (21:17)
[2017-07-28] MEDS: Gabapentin 100 MG CAP PO SCH (21:17)
--- NOTE | 2017-07-28 23:22 | CT ---
CT BRAIN WITHOUT CONTRAST: Date: 07-28-17 FINDINGS: A noncontrast CT shows moderate diffuse atrophy with mild compensatory dilatation of the ventricles. A little deep white matter lucency is typical of chronic microvascular ischemia. There is probably ev en an old lacunar infarct in the right insular region. There were no findings strongly suggestive of acute stroke. No bleeding, mass, or edema, was seen. IMPRESSION: Chronic ischemic changes but no acute intracranial findings. Report in agreement with preliminary report by [facility]. POS: [facility]
--- NOTE | 2017-07-29 00:02 | CT ---
CT OF THE CHEST WITHOUT CONTRAST: Date: 07-28-[address] of the chest was performed for evaluation of abnormal chest x-rays. Axial slices were acquired and then coronal reconstructions were done. FINDINGS: No mediastinal mass or adenopathy is seen within the limitations of a noncontrast study. The ascendin g aorta is wide at 4 cm, but the entire aorta is mildly dilated to some extent. Cardiac pacer leads a re noted. There is some coronary artery calcification. No pericardial effusion is noted. There are extensive fibrotic changes in the lungs bilaterally which get worse as one moves toward the lung bases. These are more likely chronic than acute. A focal acute pneumonia was note definitely se en. No effusions are present. Laminectomy defects are seen in a few of the mid to lower thoracic vertebrae. A large hiatal hernia i s present. The visible portions of the abdomen were unremarkable. IMPRESSION: 1. Extensive fibrotic changes throughout the lungs, worst in the lung bases. This is most likely title clerk more in nature. No definite focal pneumonia. 2. Generalized dilation of the aorta, expecting the ascending aorta. 3. Hiatal hernia. Report in agreement with preliminary reading from [facility]. POS: [facility]
[2017-07-29] MEDS: HYDROcodone/Acetaminophen 10/325 mg Tablet PO PRN (01:25)
[2017-07-29] MEDS: traMADol HCl 50 MG TAB PO PRN (03:00)
[2017-07-29] MEDS: Levothyroxine Sodium 25 MCG TAB PO SCH (06:48)
[2017-07-29] MEDS: Levothyroxine Sodium 100 MCG TAB PO SCH (06:48)
[2017-07-29 07:26] VITALS: TEMP 98.6
[2017-07-29] MEDS: Insulin Regular 300 UNITS/3 ML VIAL SC PRN ×2 (08:52→13:08)
[2017-07-29] MEDS: Polyethylene Glycol 3350 17 GM Packet PO SCH (08:54)
[2017-07-29] MEDS: GLIPIZIDE 2.5 MG PO SCH (08:54)
[2017-07-29] MEDS: Pantoprazole 40 MG GRANULES PACKET PO SCH (08:55)
[2017-07-29] MEDS: Gabapentin 100 MG CAP PO SCH (08:55)
[2017-07-29] MEDS: Sulfameth/Trimethoprim DS 800-160mg TAB PO SCH (08:56)
[2017-07-29] MEDS: Folic Acid 1 MG TAB PO SCH (08:56)
[2017-07-29] MEDS: Atorvastatin Calcium 10 MG TAB PO SCH (08:57)
[2017-07-29] MEDS: Donepezil HCl 10 MG TAB PO SCH (08:57)
[2017-07-29] MEDS ORDERED: Lisinopril 10 MG TAB PO SCH (09:00)
[2017-07-29] MEDS ORDERED: Amlodipine 5 MG TAB PO SCH (09:00)
[2017-07-29] MEDS: Sodium Chloride 0.9% 1,000 ML IV SCH (09:11)
[2017-07-29 09:15] VITALS: BP 145/78
[2017-07-29] MEDS: Bisacodyl 5 MG TAB PO SCH (10:04)
--- NOTE | 2017-07-29 22:09 | DIS ---
DATE OF ADMISSION: 07/11/2017 DATE OF DISCHARGE: 07/29/2017 ADMISSION TO NURSING HOME DIAGNOSES: 1. Gastroenteritis, resolved. 2. Dehydration, resolved. 3. Urinary tract infection, resolved. 4. Physical deconditioning. 5. 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 6. Diabetes mellitus. 7. Mild to moderate dementia. TRANSFER DIAGNOSES: 1. Altered mental status with decreased ability to use motor functions. 2. Intermittent episodes of orthostatic hypotension. 3. Low grade temperature elevations. 4. Physical deconditioning. 5. Urinary tract infection, resolved. 6. Diabetes mellitus. BRIEF SUMMARY OF HISTORY AND PHYSICAL: The patient is an 82-year-old white female who was initially admitted to [facility] on 2016 after having several days of weakness, decreased appetite, loose stools, and overall malaise. In the emergency room, she was diagnosed with a urinary tract infection as well as dehydration and was admitted to the hospital after adequate hydration oral and IV antibiotics. The patient was transferred to swing bed status on 07/11/2017 due to continued deconditioning and weakening. The patient has a history of lumbar, thoracic and cervical disk disease status post laminectomies at [facility] in [place] on 02/2017. Patient reports and family reports that she has really recovered poorly ever since that discharge, but was even worse with decreased ability to ambulate pain and weakness prior to her recent acute admission. Due to her debilitating status, she was transferred to swing bed for rehabilitation. Initially, the patient responded to physical therapy well with some improvement in her gait and strength and then approximately 5 days prior to transfer she began to decline significantlyl. The patient began having deterioration in overall status where she was unable to ambulate without a 2-person assist. She developed worsening cognition with inability to communicate appropriately, was unable to feed herself and then developed incontinence. Also during this 5day period, she had intermittent episodes of hypotension orthostatic in nature where she felt extremely dizzy when standing and was unable to really stand or transfer. In addition, patient had intermittent episodes of nocturnal elevated temperatures up to 101.4 mainly at night. Evaluation on 07/24/2017, patient was found to have a small hematoma on her left dorsal hand as well as some swelling proximally and was started on Bactrim empirically for possible post-hematoma cellulitis. The patient continued to deteriorate to the point where she was not at her baseline mental status. Evaluations including a CT of the brain, chest CT, and urine cultures showed no identifiable infectious process. The case was discussed with Dr. Justice, hospitalist who agreed to accept the patient for higher level of care for further evaluations for possible either occult infection or other causes that would explain the patient's altered mental status. The patient's case was also discussed with her ems director, Dr. Pierre via phone due to orthostatic hypotension episodes. Her blood pressure medication was decreased, but she continued to have her orthostatic episodes. DISCHARGE/TRANSFER MEDICATIONS: Zocor 20 mg p.o. at bedtime, levothyroxine 125 mcg daily, Dulcolax twice daily, Protonix 40 mg daily, melatonin 10 mg p.o. at bedtime, gabapentin 100 mg p.o. t.i.d., MiraLax 17 grams in water daily p.r.n. constipation., lisinopril 10 mg daily, [place] 10/325 one tablet p.o. q.4 hours p.r.n. pain. SIGNIFICANT LABORATORY AND IMAGING TESTS: Patient had blood work on the day prior to transfer, which showed a normal white count, slightly elevated BUN and creatinine for which she was started on conservative IV fluids. Patient underwent a CT scan of the brain which showed no acute findings, possible old lacunar infarct and chronic changes. CT scan of the chest showed signs of chronic pulmonary fibrotic changes without any acute findings. The patient will be transferred via EMS with IV at 75 mL an hour and the hospitalist will be notified when patient arrived to the floor. NIECY
== END 2017-07-29 14:50 | disposition short-term general hospital (02) | DRG 948 ==
LOC: BURMED 12:56
PROVIDERS: ADMIT Family Medicine; ATTEND Family Medicine
DX: R53.81 Other malaise (principal); E11.9 Type 2 diabetes mellitus without complications; F03.90 Unspecified dementia, unspecified severity, without behavioral disturbance, psychotic disturbance, mood disturbance, and anxiety; L03.114 Cellulitis of left upper limb; E66.9 Obesity, unspecified; E78.5 Hyperlipidemia, unspecified; I25.10 Atherosclerotic heart disease of native coronary artery without angina pectoris; Z95.0 Presence of cardiac pacemaker; I10 Essential (primary) hypertension; M15.9 Polyosteoarthritis, unspecified; I95.1 Orthostatic hypotension; R41.82 Altered mental status, unspecified
CPT/HCPCS: 36416; 70450; 71045; 71250; 80053; 81001; 83880; 85025; 87086; 36415-59; A4216; A4353; G8978-GP-CM; G8979-GP-CK; G8987-GO-CK; G8988-GO-CJ; J1815; Q0162

== ENCOUNTER 2017-08-02 15:15 | Inpatient (IN) | payer MEDICARE ==
[2017-08-02] MEDS ORDERED: traMADol HCl 50 MG TAB PO PRN (16:13)
[2017-08-02] MEDS ORDERED: CICLOPIROX TOP SCH (21:00)
[2017-08-02] MEDS ORDERED: UREA TOP SCH (21:00)
[2017-08-02] MEDS ORDERED: MEN TOP SCH (21:00)
[2017-08-02] MEDS ORDERED: CAMPH TOP SCH (21:00)
[2017-08-02] MEDS ORDERED: EUC TOP SCH (21:00)
[2017-08-02] MEDS: Melatonin 3 MG TAB PO SCH (22:26)
[2017-08-02] MEDS: Gabapentin 100 MG CAP PO SCH (22:26)
[2017-08-02] MEDS: Docusate 100 MG CAP PO SCH (22:27)
[2017-08-02] MEDS: Donepezil HCl 10 MG TAB PO SCH (22:27)
[2017-08-02] MEDS: Atorvastatin Calcium 10 MG TAB PO SCH (22:27)
[2017-08-02] MEDS: Carvedilol 12.5 MG TAB PO SCH (22:28)
[2017-08-02] MEDS: Sulfameth/Trimethoprim DS 800-160mg TAB PO SCH (22:28)
[2017-08-03] MEDS: Levothyroxine Sodium 100 MCG TAB PO SCH (05:42)
[2017-08-03] MEDS: Levothyroxine Sodium 25 MCG TAB PO SCH (05:42)
[2017-08-03] MEDS: Polyethylene Glycol 3350 17 GM Packet PO SCH (09:12)
[2017-08-03] MEDS: Pantoprazole 40 MG GRANULES PACKET PO SCH (09:13)
[2017-08-03] MEDS: glipiZIDE 5 MG TAB PO SCH (09:14)
[2017-08-03] MEDS: Cyanocobalamin (Vitamin B-12) 1,000 MCG TAB PO SCH (09:14)
[2017-08-03] MEDS: Gabapentin 100 MG CAP PO SCH ×2 (09:14→20:02)
[2017-08-03] MEDS: Folic Acid 1 MG TAB PO SCH (09:14)
[2017-08-03] MEDS: Sulfameth/Trimethoprim DS 800-160mg TAB PO SCH ×2 (09:14→20:02)
[2017-08-03] MEDS: Carvedilol 12.5 MG TAB PO SCH ×2 (09:14→20:02)
[2017-08-03] MEDS: Docusate 100 MG CAP PO SCH ×2 (09:15→20:01)
[2017-08-03 14:31] VITALS: BMI 31.8
[2017-08-03] MEDS ORDERED: Dextrose 50% Abboject 50 ML SYRINGE IVP PRN (17:45)
[2017-08-03] MEDS ORDERED: Dextrose 5% in Water 1,000 ML IV PRN (17:45)
[2017-08-03] MEDS: HumaLOG 300 UNITS/3 ML VIAL SC PRN (18:00)
[2017-08-03] MEDS: Melatonin 3 MG TAB PO SCH (20:01)
[2017-08-03] MEDS: Atorvastatin Calcium 10 MG TAB PO SCH (20:02)
[2017-08-03] MEDS: Donepezil HCl 10 MG TAB PO SCH (20:02)
[2017-08-03] MEDS: Acetaminophen 325 MG TAB PO PRN (20:06)
[2017-08-04] MEDS: Levothyroxine Sodium 25 MCG TAB PO SCH (05:25)
[2017-08-04] MEDS: Levothyroxine Sodium 100 MCG TAB PO SCH (05:25)
[2017-08-04] MEDS: Cyanocobalamin (Vitamin B-12) 1,000 MCG TAB PO SCH (08:53)
[2017-08-04] MEDS: Docusate 100 MG CAP PO SCH ×2 (08:53→21:33)
[2017-08-04] MEDS: glipiZIDE 5 MG TAB PO SCH (08:53)
[2017-08-04] MEDS: Carvedilol 12.5 MG TAB PO SCH ×2 (08:54→21:36)
[2017-08-04] MEDS: Acetaminophen 325 MG TAB PO PRN (08:54)
[2017-08-04] MEDS: Folic Acid 1 MG TAB PO SCH (08:54)
[2017-08-04] MEDS: Gabapentin 100 MG CAP PO SCH ×2 (08:54→21:32)
[2017-08-04] MEDS: Polyethylene Glycol 3350 17 GM Packet PO SCH (08:54)
[2017-08-04] MEDS: Pantoprazole 40 MG GRANULES PACKET PO SCH (08:54)
[2017-08-04] MEDS: Sulfameth/Trimethoprim DS 800-160mg TAB PO SCH ×2 (08:54→21:35)
[2017-08-04] MEDS: HumaLOG 300 UNITS/3 ML VIAL SC PRN ×2 (12:58→18:33)
[2017-08-04] MEDS: HYDROcodone/Acetaminophen 10/325 mg Tablet PO PRN (21:22)
[2017-08-04] MEDS: Donepezil HCl 10 MG TAB PO SCH (21:33)
[2017-08-04] MEDS: Melatonin 3 MG TAB PO SCH (21:33)
[2017-08-04] MEDS: Atorvastatin Calcium 10 MG TAB PO SCH (21:34)
[2017-08-05] MEDS: Levothyroxine Sodium 100 MCG TAB PO SCH (05:43)
[2017-08-05 06:11] VITALS: BP 120/73; TEMP 98.1
[2017-08-05] MEDS: Polyethylene Glycol 3350 17 GM Packet PO SCH (08:23)
[2017-08-05] MEDS: Pantoprazole 40 MG GRANULES PACKET PO SCH (08:24)
[2017-08-05] MEDS: Docusate 100 MG CAP PO SCH (08:24)
[2017-08-05] MEDS: Folic Acid 1 MG TAB PO SCH (08:24)
[2017-08-05] MEDS: Gabapentin 100 MG CAP PO SCH (08:25)
[2017-08-05] MEDS: Cyanocobalamin (Vitamin B-12) 1,000 MCG TAB PO SCH (08:26)
[2017-08-05] MEDS: Carvedilol 12.5 MG TAB PO SCH (08:26)
[2017-08-05] MEDS: glipiZIDE 5 MG TAB PO SCH (08:26)
[2017-08-05] MEDS: Levothyroxine Sodium 25 MCG TAB PO SCH (08:31)
[2017-08-05] MEDS: HYDROcodone/Acetaminophen 10/325 mg Tablet PO PRN (09:04)
[2017-08-05] MEDS ORDERED: traMADol HCl 50 MG TAB PO PRN (10:00)
== END 2017-08-05 10:00 | DRG 949 ==
LOC: BURMED 15:15
PROVIDERS: ADMIT Family Medicine; ATTEND Family Medicine
DX: Z51.89 Encounter for other specified aftercare (principal); G92 Toxic encephalopathy; N17.9 Acute kidney failure, unspecified; L03.114 Cellulitis of left upper limb; E87.1 Hypo-osmolality and hyponatremia; N39.0 Urinary tract infection, site not specified; N18.3 Chronic kidney disease, stage 3 (moderate); E11.22 Type 2 diabetes mellitus with diabetic chronic kidney disease; E03.9 Hypothyroidism, unspecified; E78.5 Hyperlipidemia, unspecified; I25.10 Atherosclerotic heart disease of native coronary artery without angina pectoris; Z95.5 Presence of coronary angioplasty implant and graft; Z95.0 Presence of cardiac pacemaker; M54.5 Low back pain; Z91.81 History of falling; F03.90 Unspecified dementia, unspecified severity, without behavioral disturbance, psychotic disturbance, mood disturbance, and anxiety; G89.4 Chronic pain syndrome; Z96.653 Presence of artificial knee joint, bilateral; Z88.1 Allergy status to other antibiotic agents; Z88.0 Allergy status to penicillin; Z79.82 Long term (current) use of aspirin; Z79.891 Long term (current) use of opiate analgesic; I12.9 Hypertensive chronic kidney disease with stage 1 through stage 4 chronic kidney disease, or unspecified chronic kidney disease; M47.9 Spondylosis, unspecified; Z66 Do not resuscitate; R53.1 Weakness
CPT/HCPCS: 36416; G8978-GP-CM; G8979-GP-CJ

== ENCOUNTER 2017-09-01 13:52 | Emergency (ER) | payer MEDICARE | END 2017-09-01 14:16 | disposition home or self-care (01) | LOC: BURERS 13:52 | DX: L03.114 Cellulitis of left upper limb (principal); E78.5 Hyperlipidemia, unspecified; E11.9 Type 2 diabetes mellitus without complications; I10 Essential (primary) hypertension; Z79.82 Long term (current) use of aspirin; Z79.899 Other long term (current) drug therapy | CPT/HCPCS: 99283 ==

== ENCOUNTER 2017-09-05 12:17 | Emergency (ER) | payer MEDICARE ==
[2017-09-05 12:59] LABS: #Basophils 0.1 thou/uL (0.0-0.2); #Eosinphils 0.1 thou/uL (0.0-0.7); #Lymphocytes 1.7 thou/uL (1.20-3.40); #Monocytes 0.5 thou/uL (0.11-0.59); #Neutrophils 6.7 thou/uL (1.40-6.50); %Basophils 0.7 % (0.0-1.0); %Eosinophils 1.1 % (0.0-10.0); %Lymphocytes 19.2 % (21.0-51.0); %Monocytes 5.5 % (0.0-10.0); %Neutrophils 73.6 % (42.0-75.0); Hemoglobin 11.7 g/dL (12.0-16.0); Mean Corpuscular HGB CONC 35.1 g/dL (32.0-36.0); Mean Corpuscular Hemoglobin 30.3 pg (27.0-31.0); Mean Corpuscular Volume 86.4 fl (81.0-99.0); Mean Platelet Volume 7.1 fL (7.4-10.4); Platelet Count 226 thou/uL (130-400); RBC Distribution Width 13.1 % (11.5-14.5); Red Blood Cell (RBC) Count 3.87 mill/uL (4.20-5.40); White Blood Cell (WBC) Count 9.1 thou/uL (4.8-10.8)
[2017-09-05 13:07] LABS: INR-International Normal Ratio 1.1; Prothrombin Time 14.2 SEC (12.0-14.7)
[2017-09-05 13:16] LABS: ALT (SGPT) 11 U/L (8-55); AST (SGOT) 13 U/L (5-34); Albumin 3.8 g/dL (3.4-4.8); Alkaline Phosphatase 86 U/L (40-150); Anion Gap 13 mmol/L (10-20); BUN (Urea Nitrogen) 17 mg/dL (9.8-20.1); Bilirubin, Total 0.6 mg/dL (0.2-1.2); Calc. Creatinine Clearance 0 mL/min (70-130); Calcium 8.8 mg/dL (7.8-10.44); Carbon Dioxide 24 mmol/L (23-31); Chloride 102 mmol/L (98-107); Estimated GFR-MDRD 38; Globulin 3.5 g/dL (2.4-3.5); Glucose 206 mg/dL (83-110); Potassium 4.3 mmol/L (3.5-5.1); Protein, Total 7.3 g/dL (6.0-8.3); Sodium 135 mmol/L (136-145)
[2017-09-05] MEDS ORDERED: predniSONE 20 MG TAB ONE (14:10)
--- NOTE | 2017-09-05 21:53 | RAD ---
PORTABLE CHEST: 09/05/17 An AP portable film at 1241 is compared with a 07/24/17 study. Mild cardiomegaly is no different than before. A cardiac pacer is present. There are no congestive ch anges or pleural effusions. No major lobar infiltrate was seen. A little haziness over the right costophrenic angle is more likel y overlying soft tissues than infiltrate. Degenerative changes are seen in the shoulder joints. IMPRESSION: No definite acute finding. POS: [facility]
--- NOTE | 2017-09-05 21:54 | RAD ---
LEFT WRIST THREE VIEWS: 09/05/17 No acute fracture was seen. There are degenerative changes between the scaphoid and trapezium and bet ween the trapezium and first metacarpal. The latter may be due to prior trauma at this point. These f indings are typical of osteoarthritis. There is some faint calcification in the region of the triangu lar fibrocartilage, so CPPD or other deposition abnormalities are indeed a possibility. There are no erosions. IMPRESSION: Degenerative changes as noted above. POS: [facility]
--- NOTE | 2017-09-05 21:56 | RAD ---
RIGHT WRIST THREE VIEWS: 09/05/17 Comparison is made with the left wrist. No acute fracture was seen. Old trauma is suggested at the ba se of the first metacarpal along with severe degenerative changes in the first carpometacarpal joint. Moderate degenerative changes are seen in the joint between the scaphoid and trapezium. There is greyson nt calcification of the triangular fibrocartilage. Severe degenerative changes are seen in the IP dennis nt of the thumb. IMPRESSION: Degenerative changes as noted. POS: HOME
== END 2017-09-05 14:25 | disposition home or self-care (01) ==
LOC: BURERS 12:17
DX: M19.032 Primary osteoarthritis, left wrist (principal); M19.031 Primary osteoarthritis, right wrist; E11.9 Type 2 diabetes mellitus without complications; E78.2 Mixed hyperlipidemia; I10 Essential (primary) hypertension; Z79.82 Long term (current) use of aspirin; Z79.899 Other long term (current) drug therapy; Z79.84 Long term (current) use of oral hypoglycemic drugs
CPT/HCPCS: 36415; 71045; 80053; 83605; 84443; 85025; 85610; 85652; 85730; 87040; J7506

== ENCOUNTER 2017-10-17 17:24 | Emergency (ER) | payer MEDICARE ==
[2017-10-17 18:15] LABS: Bilirubin Negative (Negative); Blood, Urine Negative (Negative); Clarity Clear (Clear); Glucose, Urine (Dipstick) Negative (Negative); Leukocyte Negative (Negative); Nitrite Negative (Negative); Protein, Urine (Dipstick) Negative (Neg-Trace); Urobilinogen 0.2 mg/dL (0.2-1.0)
[2017-10-17 18:19] LABS: Specific Gravity, Urine 1.007 (1.002-1.036)
== END 2017-10-17 18:35 | disposition home or self-care (01) ==
LOC: BURERS 17:24
DX: R53.1 Weakness (principal); E11.9 Type 2 diabetes mellitus without complications; E78.5 Hyperlipidemia, unspecified; E78.2 Mixed hyperlipidemia; I10 Essential (primary) hypertension
CPT/HCPCS: 81003; 87086; 99284

== ENCOUNTER 2017-11-09 13:34 | Inpatient (IN) | payer MEDICARE ==
[2017-11-09 14:13] LABS: #Basophils 0.1 thou/uL (0.0-0.2); #Eosinphils 0.1 thou/uL (0.0-0.7); #Lymphocytes 1.5 thou/uL (1.20-3.40); #Monocytes 0.7 thou/uL (0.11-0.59); #Neutrophils 8.9 thou/uL (1.40-6.50); %Basophils 0.6 % (0.0-1.0); %Eosinophils 1.3 % (0.0-10.0); %Monocytes 6.6 % (0.0-10.0); %Neutrophils 78.6 % (42.0-75.0); Hemoglobin 12.1 g/dL (12.0-16.0); Mean Corpuscular HGB CONC 33.5 g/dL (32.0-36.0); Mean Corpuscular Hemoglobin 28.6 pg (27.0-31.0); Mean Corpuscular Volume 85.2 fl (81.0-99.0); Mean Platelet Volume 6.4 fL (7.4-10.4); Platelet Count 188 thou/uL (130-400); RBC Distribution Width 14.6 % (11.5-14.5); Red Blood Cell (RBC) Count 4.23 mill/uL (4.20-5.40); White Blood Cell (WBC) Count 11.3 thou/uL (4.8-10.8)
[2017-11-09 14:25] LABS: ALT (SGPT) 12 U/L (8-55); AST (SGOT) 11 U/L (5-34); Albumin 3.8 g/dL (3.4-4.8); Alkaline Phosphatase 68 U/L (40-150); Anion Gap 16 mmol/L (10-20); BUN (Urea Nitrogen) 23 mg/dL (9.8-20.1); Bilirubin, Total 0.9 mg/dL (0.2-1.2); Calc. Creatinine Clearance 0 mL/min (70-130); Carbon Dioxide 25 mmol/L (23-31); Chloride 103 mmol/L (98-107); Estimated GFR-MDRD 39; Globulin 3.4 g/dL (2.4-3.5); Glucose 218 mg/dL (83-110); Potassium 4.4 mmol/L (3.5-5.1); Protein, Total 7.2 g/dL (6.0-8.3); Sodium 140 mmol/L (136-145)
--- NOTE | 2017-11-09 14:36 | RAD ---
PORTABLE CHEST: Date: 11-09-17 Provided Clinical History: Cough. FINDINGS: Comparison 09-05-17. Cardiac silhouette remains enlarged. Left subclavian cardiac pacing device and atherosclerosis are re demonstrated. No focal consolidation, pleural fluid, or pneumothorax apparent. IMPRESSION: No evidence for an acute cardiopulmonary process. POS: [facility]
--- NOTE | 2017-11-09 14:37 | RAD ---
RIGHT HIP RADIOGRAPHS TWO VIEWS: Date: 11-09-17 Provided Clinical History: Right hip pain status post injury. FINDINGS: Prominent degenerative changes are seen involving the right sacroiliac joint. There is no evidence fo r fracture or other acute osseous abnormality. If there is persistent clinical concern, conservative management and follow up imaging are advised. IMPRESSION: As above. POS: [facility]
[2017-11-09 15:07] LABS: Bilirubin Negative (Negative); Blood, Urine Moderate (Negative); Clarity Turbid (Clear); Glucose, Urine (Dipstick) Negative (Negative); Leukocyte Small (Negative); Nitrite Negative (Negative); Protein, Urine (Dipstick) > or equal to 300 mg/dL (Neg-Trace); Urobilinogen 0.2 mg/dL (0.2-1.0)
[2017-11-09 15:08] LABS: Bacteria/HPF 4+ HPF (None Seen); Squamous Epithelial 0-3 HPF (0-3)
--- NOTE | 2017-11-09 15:40 | RAD ---
LEFT SHOULDER RADIOGRAPHS THREE VIEWS: Date: 11-09-17 Provided Clinical History: Injury. FINDINGS: There is no evidence for fracture or other acute osseous abnormality. If there is persistent clinical concern, conservative management and follow up imaging are advised. IMPRESSION: As above. POS: [facility]
[2017-11-09] MEDS ORDERED: cefTRIAXone\\ROCEPHIN 1 GM VIAL ONE (16:39)
[2017-11-09] MEDS ORDERED: Water For Injection,Sterile 20 ML ONE (16:40)
[2017-11-09] MEDS ORDERED: Ondansetron ODT 4 MG TAB PO PRN (17:31)
[2017-11-09] MEDS ORDERED: Ondansetron HCl/PF 4 MG/2 ML Vial SLOW IVP PRN (17:31)
[2017-11-09] MEDS ORDERED: Acetaminophen 325 MG TAB PO PRN (17:31)
[2017-11-09] MEDS: Sodium Chloride 0.9% 1,000 ML IV SCH (17:37)
[2017-11-09] MEDS ORDERED: traMADol HCl 50 MG TAB PO PRN (18:41)
[2017-11-09] MEDS ORDERED: Bisacodyl 5 MG TAB PO PRN (18:41)
[2017-11-09] MEDS ORDERED: predniSONE 10 MG TAB PO PRN (18:41)
[2017-11-09] MEDS ORDERED: Nystatin Powder 15 GM BOT TOP PRN (18:44)
[2017-11-09] MEDS: Atorvastatin Calcium 10 MG TAB PO SCH (20:32)
[2017-11-09] MEDS: HYDROcodone/Acetaminophen 10/325 mg Tablet PO SCH (20:33)
[2017-11-09] MEDS: Oxybutynin 5 MG TAB PO SCH (20:34)
[2017-11-09] MEDS: Acetaminophen 325 MG TAB PO PRN (20:34)
[2017-11-09] MEDS: Donepezil HCl 10 MG TAB PO SCH (20:34)
[2017-11-09] MEDS: Melatonin 3 MG TAB PO SCH (20:34)
[2017-11-09] MEDS: CICLOPIROX TOP SCH (20:46)
[2017-11-09] MEDS: MEN TOP SCH (20:46)
[2017-11-09] MEDS: UREA TOP SCH (20:46)
[2017-11-09] MEDS: CAMPH TOP SCH (20:46)
[2017-11-09] MEDS: EUC TOP SCH (20:46)
[2017-11-09] MEDS ORDERED: Promethazine HCl 25 MG/ML VIAL ONE (20:56)
[2017-11-09] MEDS ORDERED: Carvedilol 12.5 MG TAB PO SCH (21:00)
[2017-11-10] MEDS: Levothyroxine Sodium 25 MCG TAB PO SCH (05:50)
[2017-11-10] MEDS: Levothyroxine Sodium 100 MCG TAB PO SCH (05:50)
[2017-11-10] MEDS: Sodium Chloride 0.9% 1,000 ML IV SCH ×2 (05:56→20:42)
[2017-11-10 06:00] LABS: ALT (SGPT) 11 U/L (8-55); AST (SGOT) 10 U/L (5-34); Albumin 3.1 g/dL (3.4-4.8); Alkaline Phosphatase 51 U/L (40-150); Anion Gap 13 mmol/L (10-20); BUN (Urea Nitrogen) 24 mg/dL (9.8-20.1); Bilirubin, Total 0.7 mg/dL (0.2-1.2); Calc. Creatinine Clearance 40 mL/min (70-130); Calcium 8.9 mg/dL (7.8-10.44); Carbon Dioxide 24 mmol/L (23-31); Chloride 105 mmol/L (98-107); Estimated GFR-MDRD 38; Globulin 2.6 g/dL (2.4-3.5); Glucose 140 mg/dL (83-110); Potassium 3.9 mmol/L (3.5-5.1); Protein, Total 5.7 g/dL (6.0-8.3); Sodium 138 mmol/L (136-145)
[2017-11-10 07:00] LABS: #Basophils 0.1 thou/uL (0.0-0.2); #Eosinphils 0.1 thou/uL (0.0-0.7); #Lymphocytes 2.1 thou/uL (1.20-3.40); #Monocytes 0.8 thou/uL (0.11-0.59); #Neutrophils 8.1 thou/uL (1.40-6.50); %Basophils 0.6 % (0.0-1.0); %Eosinophils 0.9 % (0.0-10.0); %Lymphocytes 18.9 % (21.0-51.0); %Neutrophils 72.6 % (42.0-75.0); Hemoglobin 10.5 g/dL (12.0-16.0); Mean Corpuscular HGB CONC 33.6 g/dL (32.0-36.0); Mean Corpuscular Hemoglobin 28.9 pg (27.0-31.0); Mean Corpuscular Volume 85.9 fl (81.0-99.0); Mean Platelet Volume 6.7 fL (7.4-10.4); Platelet Count 154 thou/uL (130-400); RBC Distribution Width 14.3 % (11.5-14.5); Red Blood Cell (RBC) Count 3.62 mill/uL (4.20-5.40); White Blood Cell (WBC) Count 11.1 thou/uL (4.8-10.8)
[2017-11-10] MEDS ORDERED: Bisacodyl 10 MG SUPP PR PRN (07:07)
--- NOTE | 2017-11-10 07:59 | HP ---
DATE OF ADMISSION: 11/09/2017 CHIEF COMPLAINT: Fever. PRIMARY CARE PHYSICIAN: Zakiya Nash M.D. CODE STATUS: DNR. HISTORY OF PRESENT ILLNESS: This is an 82-year-old female, who presented to [facility] Emergency Department yesterday afternoon with complaints of fever associated with a cough and general UTI complaints. Also, reports having a recent fall, and she has a h/o recurrent falls. The patient has memory impairment and lives alone in [place] with a ice rink attendant who helps her along with her daughter living next door. In the emergency department, she was found to have leukocytosis with a left shift and notable urinary tract infection. Imaging of her left shoulder, right hip, and chest were largely stable. She was started on Rocephin empirically with urine cultures obtained and admitted to the floor. As of this morning, she reports feeling improved overall. She is notably oriented to self, but not place or time. She states her intake and output are stable other than having some constipation, but does feel the need to have a bowel movement at this time. She appears to have fair insight to her reason for being here. She did develop a fever prior to midnight last night, but has defervesced, and as stated reports to be feeling improved at this time. PAST MEDICAL HISTORY: Type 2 diabetes mellitus; coronary artery disease; sinus node dysfunction, status post pacemaker; hypothyroidism; hyperlipidemia; hypertension; degenerative joint disease; chronic low back pain; recurrent falls ; memory impairment; chronic pain syndrome. PAST SURGICAL HISTORY: Back surgeries including her thoracic and lumbar spines , thyroidectomy, hysterectomy, right knee replacement, left knee replacement, right lung thoracotomy from benign tumor resection and cholecystectomy. ALLERGIES: To FLUOROQUINOLONES and PENICILLIN. SOCIAL HISTORY: She lives alone in [place] with her daughter next door. Also , the caregiver. Denies tobacco, alcohol, or illicit drug use. CURRENT MEDICATIONS: Aspirin 81 mg p.o. daily, atorvastatin 40 mg p.o. at bedtime, carvedilol 12.5 mg p.o. b.i.d., cholecalciferol 5000 units p.o. daily, vitamin B12 1000 mcg p.o. daily, donepezil 10 mg p.o. at bedtime, folic acid 1 mg p.o. daily, glipizide 5 mg p.o. daily, [place] 10/325 p.o. b.i.d., levothyroxine 100 mcg p.o. daily, lisinopril 10 mg p.o. daily, melatonin 9 mg p.o. at bedtime, methotrexate 12.5 mg every 7 days, oxybutynin 5 mg p.o. b.i.d. , Protonix 40 mg p.o. daily, prednisone 5 mg p.o. daily p.r.n., tramadol 50 mg p.o. q.8 hours p.r.n. LABORATORY DATA: White blood cell count is 11.3, H and H is 12.1 and 36.1, platelets are 188. Sodium 138, potassium 3.9, BUN 24, creatinine 1.32, glucose 140. LFTs are normal. Urine is turbid with moderate blood and small leukocyte esterase. Urine white blood cells greater than 50 with 4+ bacteria. Chest x- ray, no evidence for an acute cardiopulmonary process. Right hip x-ray, prominent degenerative changes seen involving the right sacroiliac joint. No evidence for fracture or other acute osseous abnormality. Left shoulder x-ray, no evidence for fracture or other acute osseous abnormality. REVIEW OF SYSTEMS: General: Reports fever. Ear, Nose, and Throat: Denies sore throat, nasal drainage, or congestion. Cardiovascular: Denies chest pain or palpitations. Respiratory: Denies dyspnea or cough. Gastrointestinal: Denies abdominal pain, nausea, vomiting, or diarrhea. Genitourinary: Complains of dysuria. Musculoskeletal: Complains of chronic joint pains. Derm : Denies skin lesions. Neurologic: Denies headache. PHYSICAL EXAMINATION: VITAL SIGNS: Temperature is 97.6, pulse is 69, respiratory rate is 20, oxygen is 93% on room air, blood pressure is 89/51. GENERAL: The patient is alert. She is oriented to self, but not time or place. She is obese. HEENT: Head is atraumatic and normocephalic. Sclerae are clear. Extraocular muscles are intact bilaterally. The patient is edentulous. NECK: Supple, with no JVD. LUNGS: Scattered crackles, without wheezes or respiratory distress. HEART: S1 and S2. No rubs or gallops. There is a 2/6 systolic murmur. ABDOMEN: Soft, nontender, no rebound or guarding. EXTREMITIES: No clubbing, cyanosis, or edema. There is a right PIV access. NEUROLOGIC: Cranial nerves II-XII are grossly intact. ASSESSMENT AND PLAN: 1. Pyelonephritis. Patient has been started on empiric Rocephin and is on normal saline intravenous fluids at 75 mL an hour. We will resume these for now with a plan to follow up the urine culture. CBC is pending for this morning to assess as to whether her leukocytosis has improved. 2. Type 2 diabetes mellitus. We will resume the patient's diabetic medications with planned Accu-Cheks a.c. and at bedtime. 3. Hypertension. The patient is currently hypotensive. We will decrease her Coreg from 12.5 mg p.o. b.i.d. to 6.25 mg p.o. b.i.d. and the lisinopril from 10 mg p.o. daily to 5 mg p.o. daily, resume intravenous fluids as stated. 4. Physical deconditioning. We will consult for physical therapy and occupational therapy evaluations. 5. Dementia, appears to be at baseline. We will resume patient's donepezil. 6. Chronic pain syndrome, history of back surgeries and she will be resumed on her usual pain medications. 7. Hypothyroidism. Continue levothyroxine. 8. Hyperlipidemia. Continue patient's statin. 9. Constipation. I have added Dulcolax per rectum p.r.n. 10. Prophylaxis. The patient will be on GI prophylaxis with her usual proton pump inhibitor. We will hold anticoagulation therapy secondary to fall risk and a history of recurrent falls. [facility]
[2017-11-10] MEDS ORDERED: Lisinopril 10 MG TAB PO SCH ×2 (09:00)
--- NOTE | 2017-11-10 09:03 | RAD ---
ONE VIEW CHEST: COMPARISON: 11/09/17. HISTORY: Evaluate for pneumonia. FINDINGS: Stable left-sided transvenous pacemaker. Stable configuration of the cardiac silhouette. Persistent opacity in the left lung base. No pneumothorax. No osseous abnormalities. Vertical opacity in the right lung base is unchanged. IMPRESSION: Stable opacification of the left lung base. POS: OFF
[2017-11-10] MEDS: HYDROcodone/Acetaminophen 10/325 mg Tablet PO SCH ×2 (09:10→20:46)
[2017-11-10] MEDS: Pantoprazole 40 MG GRANULES PACKET PO SCH (09:11)
[2017-11-10] MEDS: Polyethylene Glycol 3350 17 GM Packet PO SCH (09:11)
[2017-11-10] MEDS: Cyanocobalamin (Vitamin B-12) 1,000 MCG TAB PO SCH (09:11)
[2017-11-10] MEDS: Carvedilol 12.5 MG TAB PO SCH ×2 (09:12→20:43)
[2017-11-10] MEDS: Folic Acid 1 MG TAB PO SCH (09:14)
[2017-11-10] MEDS: glipiZIDE 5 MG TAB PO SCH (09:14)
[2017-11-10] MEDS: Oxybutynin 5 MG TAB PO SCH ×2 (09:14→20:46)
[2017-11-10] MEDS ORDERED: predniSONE 10 MG TAB PO PRN (09:45)
[2017-11-10] MEDS ORDERED: traMADol HCl 50 MG TAB PO PRN (09:45)
[2017-11-10] MEDS ORDERED: Nystatin Powder 15 GM BOT TOP PRN (09:45)
[2017-11-10] MEDS ORDERED: Bisacodyl 5 MG TAB PO PRN (09:45)
[2017-11-10] MEDS: Acetaminophen 325 MG TAB PO PRN (15:59)
[2017-11-10] MEDS: cefTRIAXone\\ROCEPHIN 1 GM VIAL SLOW IVP SCH (17:17)
[2017-11-10] MEDS: Sterile Water 10 ML VIAL FS SCH (17:17)
[2017-11-10] MEDS: Atorvastatin Calcium 10 MG TAB PO SCH (20:45)
[2017-11-10] MEDS: Melatonin 3 MG TAB PO SCH (20:45)
[2017-11-10] MEDS: Donepezil HCl 10 MG TAB PO SCH (20:46)
[2017-11-10] MEDS: MEN TOP SCH (21:18)
[2017-11-10] MEDS: CICLOPIROX TOP SCH (21:18)
[2017-11-10] MEDS: CAMPH TOP SCH (21:18)
[2017-11-10] MEDS: UREA TOP SCH (21:18)
[2017-11-10] MEDS: EUC TOP SCH (21:18)
[2017-11-11] MEDS: Levothyroxine Sodium 25 MCG TAB PO SCH (05:36)
[2017-11-11] MEDS: Levothyroxine Sodium 100 MCG TAB PO SCH (05:36)
[2017-11-11 06:28] LABS: ALT (SGPT) 10 U/L (8-55); AST (SGOT) 11 U/L (5-34); Albumin 3.3 g/dL (3.4-4.8); Alkaline Phosphatase 57 U/L (40-150); Anion Gap 14 mmol/L (10-20); BUN (Urea Nitrogen) 16 mg/dL (9.8-20.1); Bilirubin, Total 0.5 mg/dL (0.2-1.2); Calc. Creatinine Clearance 55 mL/min (70-130); Calcium 9.1 mg/dL (7.8-10.44); Carbon Dioxide 24 mmol/L (23-31); Chloride 104 mmol/L (98-107); Estimated GFR-MDRD 55; Glucose 134 mg/dL (83-110); Protein, Total 6.3 g/dL (6.0-8.3); Sodium 138 mmol/L (136-145)
[2017-11-11 06:36] LABS: #Basophils 0.1 thou/uL (0.0-0.2); #Eosinphils 0.2 thou/uL (0.0-0.7); #Lymphocytes 1.3 thou/uL (1.20-3.40); #Monocytes 0.7 thou/uL (0.11-0.59); #Neutrophils 5.5 thou/uL (1.40-6.50); %Basophils 1.1 % (0.0-1.0); %Eosinophils 2.6 % (0.0-10.0); %Lymphocytes 16.6 % (21.0-51.0); %Monocytes 8.5 % (0.0-10.0); %Neutrophils 71.2 % (42.0-75.0); Mean Corpuscular HGB CONC 33.4 g/dL (32.0-36.0); Mean Corpuscular Hemoglobin 28.3 pg (27.0-31.0); Mean Corpuscular Volume 84.8 fl (81.0-99.0); Platelet Count 156 thou/uL (130-400); RBC Distribution Width 14.3 % (11.5-14.5); White Blood Cell (WBC) Count 7.7 thou/uL (4.8-10.8)
[2017-11-11] MEDS: Polyethylene Glycol 3350 17 GM Packet PO SCH (08:09)
[2017-11-11] MEDS: glipiZIDE 5 MG TAB PO SCH (09:03)
[2017-11-11] MEDS: Cyanocobalamin (Vitamin B-12) 1,000 MCG TAB PO SCH (09:03)
[2017-11-11] MEDS: Folic Acid 1 MG TAB PO SCH (09:03)
[2017-11-11] MEDS: Oxybutynin 5 MG TAB PO SCH ×2 (09:04→21:44)
[2017-11-11] MEDS: Pantoprazole 40 MG GRANULES PACKET PO SCH (09:06)
[2017-11-11] MEDS: HYDROcodone/Acetaminophen 10/325 mg Tablet PO SCH ×2 (09:06→21:45)
[2017-11-11] MEDS ORDERED: Lisinopril 10 MG TAB PO SCH (10:15)
[2017-11-11] MEDS ORDERED: Carvedilol 12.5 MG TAB PO SCH (10:15)
[2017-11-11] MEDS: Lisinopril 10 MG TAB PO SCH (10:41)
[2017-11-11] MEDS: Carvedilol 12.5 MG TAB PO SCH ×2 (10:41→21:49)
[2017-11-11] MEDS ORDERED: METHOTREXATE 50MG/2ML VIAL SC SCH (14:30)
[2017-11-11] MEDS: Sterile Water 10 ML VIAL FS SCH (17:22)
[2017-11-11] MEDS: cefTRIAXone\\ROCEPHIN 1 GM VIAL SLOW IVP SCH (17:22)
[2017-11-11 20:58] VITALS: BMI 30.9
[2017-11-11] MEDS ORDERED: CICLOPIROX 8% TOP SCH (21:00)
[2017-11-11] MEDS: Donepezil HCl 10 MG TAB PO SCH (21:42)
[2017-11-11] MEDS: Atorvastatin Calcium 10 MG TAB PO SCH (21:43)
[2017-11-11] MEDS: Melatonin 3 MG TAB PO SCH (21:44)
[2017-11-12 06:02] LABS: #Basophils 0.1 thou/uL (0.0-0.2); #Eosinphils 0.2 thou/uL (0.0-0.7); #Lymphocytes 1.6 thou/uL (1.20-3.40); #Monocytes 0.7 thou/uL (0.11-0.59); #Neutrophils 3.6 thou/uL (1.40-6.50); %Basophils 1.2 % (0.0-1.0); %Lymphocytes 25.4 % (21.0-51.0); %Monocytes 11.6 % (0.0-10.0); %Neutrophils 57.9 % (42.0-75.0); Hemoglobin 10.8 g/dL (12.0-16.0); Mean Corpuscular HGB CONC 33.1 g/dL (32.0-36.0); Mean Corpuscular Hemoglobin 28.1 pg (27.0-31.0); Mean Corpuscular Volume 84.9 fl (81.0-99.0); Mean Platelet Volume 6.6 fL (7.4-10.4); Platelet Count 174 thou/uL (130-400); Red Blood Cell (RBC) Count 3.83 mill/uL (4.20-5.40); White Blood Cell (WBC) Count 6.2 thou/uL (4.8-10.8)
[2017-11-12] MEDS: Levothyroxine Sodium 25 MCG TAB PO SCH (06:03)
[2017-11-12] MEDS: Levothyroxine Sodium 100 MCG TAB PO SCH (06:03)
[2017-11-12 06:14] LABS: ALT (SGPT) 12 U/L (8-55); AST (SGOT) 12 U/L (5-34); Albumin 3.3 g/dL (3.4-4.8); Alkaline Phosphatase 54 U/L (40-150); Anion Gap 14 mmol/L (10-20); BUN (Urea Nitrogen) 14 mg/dL (9.8-20.1); Bilirubin, Total 0.3 mg/dL (0.2-1.2); Calc. Creatinine Clearance 58 mL/min (70-130); Calcium 9.4 mg/dL (7.8-10.44); Carbon Dioxide 25 mmol/L (23-31); Chloride 105 mmol/L (98-107); Estimated GFR-MDRD 58; Glucose 147 mg/dL (83-110); Potassium 3.8 mmol/L (3.5-5.1); Protein, Total 6.3 g/dL (6.0-8.3); Sodium 140 mmol/L (136-145)
[2017-11-12 06:48] VITALS: BP 156/74; TEMP 97.7
[2017-11-12] MEDS: glipiZIDE 5 MG TAB PO SCH (08:42)
[2017-11-12] MEDS: Folic Acid 1 MG TAB PO SCH (08:43)
[2017-11-12] MEDS: Pantoprazole 40 MG GRANULES PACKET PO SCH (08:44)
[2017-11-12] MEDS: Oxybutynin 5 MG TAB PO SCH (08:44)
[2017-11-12] MEDS: Cyanocobalamin (Vitamin B-12) 1,000 MCG TAB PO SCH (08:44)
[2017-11-12] MEDS: Lisinopril 10 MG TAB PO SCH (08:44)
[2017-11-12] MEDS: Carvedilol 12.5 MG TAB PO SCH (08:44)
[2017-11-12] MEDS: HYDROcodone/Acetaminophen 10/325 mg Tablet PO SCH (08:45)
[2017-11-12] MEDS: Polyethylene Glycol 3350 17 GM Packet PO SCH (08:52)
--- NOTE | 2017-11-12 12:25 | DIS ---
DATE OF ADMISSION: 11/09/2017 DATE OF DISCHARGE: 11/12/2017 ADMISSION DIAGNOSES: Urinary tract infection with pyelonephritis with secondary diagnoses including type 2 diabetes mellitus, hypertension, physical deconditioning, memory impairment/dementia, chronic pain syndrome, hypothyroidism, hyperlipidemia, and constipation. PROCEDURES: 11/09/2017, chest x-ray showed no evidence for an acute cardiopulmonary process. 11/09/2017, right hip x-ray showed prominent degenerative changes involving the right sacroiliac joint. No evidence for fracture or other acute osseous abnormality. 11/09/2017, left shoulder x-ray showed no evidence for fracture or other acute osseous abnormality. 11/10/2017 , chest x-ray showed stable opacification of the left lung base. HOSPITAL COURSE: An 82-year-old female who presented from home to the [facility] Emergency Department with complaints of UTI symptoms and fever. She was subsequently found to have bacteria in her urine and leukocytosis with a left shift. Urine cultures were obtained and she was started on Rocephin empirically. She also appeared dehydrated with a decline in her renal function for which she was provided normal saline intravenous fluids. She has a history of recurrent falls and thus had imaging as noted in the emergency department which was largely stable. The patient did have intermittent fever during her stay, but was able to defervesce and has been afebrile for the last 24-48 hours. Her urine culture isolated E. coli with sensitivities showing that we will be able to transition her to p.o. nitrofurantoin. Of note, she did have one blood culture positive for E. coli as well and thus second blood cultures have been drawn and are pending at this time and may be followed up upon when available. The patient's leukocytosis resolved. She effectively defervesced. Her intake improved and she reports to be feeling much better. She is amenable to discharge to her home setting at this time where she lives in [place] and has [facility] and her daughter living next door to further care for her. DISPOSITION: Patient will discharge home where her daughter lives next door and will have further care via [facility]. DISCHARGE MEDICATIONS: 1. New medication will be Macrobid 100 mg p.o. b.i.d. x7 days. She will resume the rest of her other medications which include aspirin 81 mg p.o. daily , atorvastatin 40 mg p.o. at bedtime, carvedilol 12.5 mg p.o. b.i.d., cholecalciferol 5000 units p.o. daily, vitamin B12 1000 mcg p.o. daily, donepezil 10 mg p.o. at bedtime, folic acid 1 mg p.o. daily, glipizide 5 mg p.o. daily, [place] 10/325 p.o. b.i.d., levothyroxine 100 mcg p.o. daily, lisinopril 10 mg p.o. daily, melatonin 9 mg p.o. at bedtime, methotrexate 12.5 mg every 7 days, oxybutynin 5 mg p.o. b.i.d., Protonix 40 mg p.o. daily, prednisone 5 mg p.o. daily p.r.n., tramadol 50 mg p.o. q.8 h. p.r.n. MTDD
[2017-11-16] MEDS ORDERED: METHOTREXATE 12.5 MG SQ SCH (09:00)
--- NOTE | 2017-11-21 10:31 | PQF ---
Maribell Patel Kyle, MD [id number] CLINICAL DOCUMENTATION CLARIFICATION FORM: POST DISCHARGE Addendum to original discharge summary date: 11/12/2017 DATE: 11/21/2017 ATTN: Dr. Husain Please exercise your independent, professional judgment in responding to the clarification form. Clinical indicators are provided on the bottom of this form for your review Please clarify the clinical significance and corresponding diagnosis, if any, related to positive blood culture for Escherichia Coli Please check appropriate box(s): [ ] Clinical significance and corresponding diagnosis of positive blood culture with Escherichia coli due to [ ] Other diagnosis (please specify) [ x ] Unable to determine In addition, please specify: Present on Admission (POA): [ x ] Yes [ ] No [ ] Unable to determine For continuity of documentation, please document condition throughout progress notes and discharge summary. Thank You. CLINICAL INDICATORS - SIGNS / SYMPTOMS / LABS Per discharge summary: Of note, she did have one blood culture positive for E. coli as well and thus second blood cultres have been drawn and are pending at this time any may be followed up upon when available. Blood culture results: 11/10 (16:55): Escherichia Coli. 11/10 (17:10): No growth in 5 days. 11/11 (13:20): No growth in 5 days. 11/11 (13:35): No growth in 5 days. RISK FACTORS (per discharge summary) Escherichia Coli Pyelonephritis. TREATMENTS: (per H&P) IV Rocephin IV Fluids. (This form is maintained as a part of the permanent medical record) 2014 [employer] All Rights Reserved Kylee [email or web address] [phone] [email or web address]
== END 2017-11-12 10:30 | disposition home health service (06) | DRG 690 ==
LOC: BURERS 13:34 → BURMED 15:30
PROVIDERS: ADMIT Family Medicine; ATTEND Family Medicine
DX: N12 Tubulo-interstitial nephritis, not specified as acute or chronic (principal); E11.9 Type 2 diabetes mellitus without complications; I25.10 Atherosclerotic heart disease of native coronary artery without angina pectoris; E03.9 Hypothyroidism, unspecified; E78.5 Hyperlipidemia, unspecified; I10 Essential (primary) hypertension; F03.90 Unspecified dementia, unspecified severity, without behavioral disturbance, psychotic disturbance, mood disturbance, and anxiety; G89.4 Chronic pain syndrome; M54.5 Low back pain; K59.00 Constipation, unspecified; E86.0 Dehydration; B96.20 Unspecified Escherichia coli [E. coli] as the cause of diseases classified elsewhere; Z88.0 Allergy status to penicillin; Z88.8 Allergy status to other drugs, medicaments and biological substances; Z79.84 Long term (current) use of oral hypoglycemic drugs; Z79.82 Long term (current) use of aspirin; Z79.899 Other long term (current) drug therapy; Z95.0 Presence of cardiac pacemaker; Z96.653 Presence of artificial knee joint, bilateral
CPT/HCPCS: 36415; 36416; 71045; 80053; 81003; 81015; 85025; 87040; 87077; 87086; 87149; 87186; 96361; 96374; A4216; A4353; G8978-GP-CK; G8979-GP-CJ; G8987-GO-CL; G8988-GO-CK; J0696; J2550

== ENCOUNTER 2018-02-04 19:06 | Emergency (ER) | payer MEDICARE ==
[2018-02-04] MEDS ORDERED: Acetaminophen 500 MG TAB ONE (19:48)
[2018-02-04 20:06] LABS: Clarity Turbid (Clear); Glucose, Urine (Dipstick) 100 mg/dL (Negative); Leukocyte Large (Negative); Nitrite Positive (Negative); Protein, Urine (Dipstick) 100 mg/dL (Neg-Trace); Urobilinogen 0.2 mg/dL (0.2-1.0); pH, Urine 5.5 (5.0-9.0)
[2018-02-04 20:07] LABS: Bilirubin Negative (Negative); Blood, Urine Moderate (Negative)
[2018-02-04 20:09] LABS: Bacteria/HPF 3+ HPF (None Seen); Squamous Epithelial 0-3 HPF (0-3)
[2018-02-04 20:12] LABS: #Basophils 0.1 thou/uL (0.0-0.2); #Eosinphils 0.1 thou/uL (0.0-0.7); #Lymphocytes 1.3 thou/uL (1.20-3.40); #Monocytes 0.5 thou/uL (0.11-0.59); #Neutrophils 7.4 thou/uL (1.40-6.50); %Basophils 1.2 % (0.0-1.0); %Eosinophils 1.5 % (0.0-10.0); %Lymphocytes 13.4 % (21.0-51.0); %Monocytes 5.5 % (0.0-10.0); %Neutrophils 78.4 % (42.0-75.0); Hemoglobin 11.9 g/dL (12.0-16.0); Mean Corpuscular HGB CONC 36.4 g/dL (32.0-36.0); Mean Corpuscular Hemoglobin 30.3 pg (27.0-31.0); Mean Corpuscular Volume 83.2 fL (78.0-98.0); Mean Platelet Volume 6.5 fL (7.4-10.4); Platelet Count 182 thou/uL (130-400); Red Blood Cell (RBC) Count 3.92 mill/uL (4.20-5.40); White Blood Cell (WBC) Count 9.5 thou/uL (4.8-10.8)
[2018-02-04 20:17] LABS: ALT (SGPT) 16 U/L (8-55); AST (SGOT) 13 U/L (5-34); Alkaline Phosphatase 59 U/L (40-150); Anion Gap 16 mmol/L (10-20); BUN (Urea Nitrogen) 19 mg/dL (9.8-20.1); Bilirubin, Total 0.7 mg/dL (0.2-1.2); Calc. Creatinine Clearance 0 mL/min (70-130); Calcium 9.7 mg/dL (7.8-10.44); Carbon Dioxide 23 mmol/L (23-31); Chloride 103 mmol/L (98-107); Estimated GFR-MDRD 37; Globulin 3.2 g/dL (2.4-3.5); Glucose 198 mg/dL (83-110); Potassium 3.9 mmol/L (3.5-5.1); Protein, Total 7.2 g/dL (6.0-8.3); Sodium 138 mmol/L (136-145)
[2018-02-04 20:18] LABS: CKMB 0.4 ng/mL (0-6.6); Troponin I Less than 0.010 ng/mL (< 0.028)
[2018-02-04] MEDS ORDERED: cefTRIAXone\\ROCEPHIN 1 GM VIAL ONE (20:23)
--- NOTE | 2018-02-04 21:29 | RAD ---
PORTABLE CHEST 02/04/18 An AP portable film at 1910 is compared with a 11/10/17 study. Mild cardiomegaly remains about the same. The cardiac pacer is in place. The vessels seem a bit more congested today, so mild congestive change is possible. While I do not see any large lobar consolidat ion, it is difficult to assess the area behind the heart on the left, so I cannot completely rule out any infiltrate here. IMPRESSION: 1. Slight vascular congestion compared to the prior study. 2. No large pneumonia seen but cannot see the left base well. POS: HOME
== END 2018-02-04 21:18 | disposition home or self-care (01) ==
LOC: BURERS 19:06
DX: N12 Tubulo-interstitial nephritis, not specified as acute or chronic (principal); E11.9 Type 2 diabetes mellitus without complications; E78.5 Hyperlipidemia, unspecified; I10 Essential (primary) hypertension; E78.1 Pure hyperglyceridemia; M19.90 Unspecified osteoarthritis, unspecified site; Z79.899 Other long term (current) drug therapy
CPT/HCPCS: 51702; 71045; 80053; 81003; 81015; 82553; 83605; 83880; 84484; 85025; 87040; 87077; 87149; 87186; 93005; 96374; J0696; J7620

== ENCOUNTER 2018-02-14 11:58 | Emergency (ER) | payer MEDICARE ==
[2018-02-14 12:49] LABS: PTT 28.2 SEC (22.9-36.1); Prothrombin Time 13.5 SEC (12.0-14.7)
[2018-02-14 12:52] LABS: Lactic Acid 1.7 mmol/L (0.5-2.2)
[2018-02-14 12:56] LABS: Hemoglobin 12.3 g/dL (12.0-16.0); Mean Corpuscular Hemoglobin 31.1 pg (27.0-31.0); Mean Platelet Volume 6.5 fL (7.4-10.4); Platelet Count 231 thou/uL (130-400); RBC Distribution Width 13.3 % (11.5-14.5); Red Blood Cell (RBC) Count 3.94 mill/uL (4.20-5.40); White Blood Cell (WBC) Count 18.9 thou/uL (4.8-10.8)
[2018-02-14 12:57] LABS: ALT (SGPT) 20 U/L (8-55); AST (SGOT) 18 U/L (5-34); Albumin 3.7 g/dL (3.4-4.8); Alkaline Phosphatase 71 U/L (40-150); Anion Gap 16 mmol/L (10-20); BUN (Urea Nitrogen) 23 mg/dL (9.8-20.1); Bilirubin, Total 0.6 mg/dL (0.2-1.2); CK (CPK) 38 U/L (29-168); Calc. Creatinine Clearance 0 mL/min (70-130); Calcium 9.5 mg/dL (7.8-10.44); Carbon Dioxide 25 mmol/L (23-31); Chloride 104 mmol/L (98-107); Estimated GFR-MDRD 49; Globulin 2.8 g/dL (2.4-3.5); Glucose 156 mg/dL (83-110); Magnesium 1.7 mg/dL (1.6-2.6); Potassium 4.6 mmol/L (3.5-5.1); Protein, Total 6.5 g/dL (6.0-8.3); Sodium 140 mmol/L (136-145)
[2018-02-14 12:58] LABS: #Basophils 0.1 thou/uL (0.0-0.2); #Eosinphils 0.2 thou/uL (0.0-0.7); #Monocytes 0.5 thou/uL (0.11-0.59); #Neutrophils 17.2 thou/uL (1.40-6.50); %Basophils 0.5 % (0.0-1.0); %Lymphocytes 5.1 % (21.0-51.0); %Monocytes 2.7 % (0.0-10.0); %Neutrophils 90.7 % (42.0-75.0); Basophilic Stippling SLIGHT = 1-2 cells (100X) (None Seen); CKMB 0.6 ng/mL (0-6.6); MDiff Complete? YES; Polychromasia SLIGHT = 2-3 cells (100X) (0-2/hpf); Troponin I 0.014 ng/mL (< 0.028)
--- NOTE | 2018-02-14 13:02 | CT ---
CT BRAIN WITHOUT CONTRAST: Date: 02/14/18 Comparison made with the 07/28/17 study. FINDINGS: There has been no significant interval change. Atrophy and chronic ischemic changes in the deep white matter again predominate. The ventricles show mild to moderate compensatory dilatation commensurate with the degree of atrophy present. There may be a tiny lacunar infarct in the right subinsular area, which is not new. Overall, there are no findings of acute stroke, bleeding, mass, or edema. IMPRESSION: Atrophy and chronic ischemic changes, but no acute intracranial finding. POS: HOME
== END 2018-02-14 13:14 | disposition short-term general hospital (02) ==
LOC: BURERS 11:58
DX: I63.9 Cerebral infarction, unspecified (principal); E11.9 Type 2 diabetes mellitus without complications; E78.5 Hyperlipidemia, unspecified; I10 Essential (primary) hypertension; M19.90 Unspecified osteoarthritis, unspecified site; E07.9 Disorder of thyroid, unspecified; Z79.84 Long term (current) use of oral hypoglycemic drugs; Z79.899 Other long term (current) drug therapy
CPT/HCPCS: 70450; 80053; 82553; 83605; 83735; 84484; 85025; 85610; 85730; 93005

== ENCOUNTER 2018-02-20 12:13 | Inpatient (IN) | payer MEDICARE ==
[2018-02-20] MEDS ORDERED: Bisacodyl 5 MG TAB PO PRN (17:11)
[2018-02-20] MEDS ORDERED: Acetaminophen 325 MG TAB PO PRN (17:11)
[2018-02-20] MEDS ORDERED: Polyethylene Glycol 3350 17 GM Packet PO PRN (17:16)
[2018-02-20] MEDS ORDERED: Dextrose 50% Abboject 50 ML SYRINGE SLOW IVP PRN (17:19)
[2018-02-20] MEDS ORDERED: Dextrose 5% in Water 1,000 ML IV PRN (17:19)
[2018-02-20] MEDS: Atorvastatin Calcium 10 MG TAB PO SCH (20:39)
[2018-02-20] MEDS: Donepezil HCl 10 MG TAB PO SCH (20:40)
[2018-02-20] MEDS: Melatonin 3 MG TAB PO SCH (20:40)
[2018-02-20] MEDS: Carvedilol 12.5 MG TAB PO SCH (20:40)
[2018-02-20] MEDS: [UNRECOGNIZED DRUG - OTHER] TOP SCH (20:43)
[2018-02-20] MEDS: UREA TOP SCH (20:43)
[2018-02-20] MEDS: CAMPH TOP SCH (20:43)
[2018-02-20] MEDS: MEN TOP SCH (20:43)
[2018-02-20] MEDS: CICLOPIROX TOP SCH (20:43)
[2018-02-20] MEDS: EUC TOP SCH (20:43)
[2018-02-20] MEDS: Meropenem 1 GM in Sodium Chloride 0.9% 100 ML IVPB SCH (23:49)
[2018-02-20] MEDS ORDERED: MEROPENEM IVPB SCH (23:59)
[2018-02-21] MEDS: Levothyroxine Sodium 100 MCG TAB PO SCH (06:01)
[2018-02-21] MEDS: Levothyroxine Sodium 25 MCG TAB PO SCH (06:01)
[2018-02-21] MEDS: Aspirin 325 mg Enteric Coated Tablet PO SCH (08:46)
[2018-02-21] MEDS: Meropenem 1 GM in Sodium Chloride 0.9% 100 ML IVPB SCH ×3 (08:46→23:54)
[2018-02-21] MEDS: Lisinopril 10 MG TAB PO SCH (08:47)
[2018-02-21] MEDS: Carvedilol 12.5 MG TAB PO SCH ×2 (08:47→20:47)
[2018-02-21] MEDS: Oxybutynin 5 MG TAB PO SCH (08:47)
[2018-02-21] MEDS: glipiZIDE 5 MG TAB PO SCH (08:48)
[2018-02-21] MEDS ORDERED: predniSONE 10 MG TAB PO PRN (09:00)
[2018-02-21] MEDS: HumaLOG 300 UNITS/3 ML VIAL SC PRN ×2 (16:18→18:02)
[2018-02-21] MEDS: Melatonin 3 MG TAB PO SCH (20:46)
[2018-02-21] MEDS: Atorvastatin Calcium 10 MG TAB PO SCH (20:46)
[2018-02-21] MEDS: UREA TOP SCH (20:47)
[2018-02-21] MEDS: CICLOPIROX TOP SCH (20:47)
[2018-02-21] MEDS: MEN TOP SCH (20:47)
[2018-02-21] MEDS: Donepezil HCl 10 MG TAB PO SCH (20:47)
[2018-02-21] MEDS: EUC TOP SCH (20:47)
[2018-02-21] MEDS: [UNRECOGNIZED DRUG - OTHER] TOP SCH (20:47)
[2018-02-21] MEDS: Pantoprazole 40 MG GRANULES PACKET PO SCH (20:47)
[2018-02-21] MEDS: CAMPH TOP SCH (20:47)
[2018-02-22] MEDS: Levothyroxine Sodium 25 MCG TAB PO SCH (06:17)
[2018-02-22] MEDS: Levothyroxine Sodium 100 MCG TAB PO SCH (06:17)
[2018-02-22] MEDS: Meropenem 1 GM in Sodium Chloride 0.9% 100 ML IVPB SCH ×3 (08:30→23:52)
[2018-02-22] MEDS: glipiZIDE 5 MG TAB PO SCH (08:42)
[2018-02-22] MEDS: Lisinopril 10 MG TAB PO SCH (08:42)
[2018-02-22] MEDS: Oxybutynin 5 MG TAB PO SCH (08:42)
[2018-02-22] MEDS: Aspirin 325 mg Enteric Coated Tablet PO SCH (08:42)
[2018-02-22] MEDS: Carvedilol 12.5 MG TAB PO SCH ×2 (08:42→20:33)
[2018-02-22] MEDS: HumaLOG 300 UNITS/3 ML VIAL SC PRN ×3 (12:45→20:30)
[2018-02-22] MEDS: ETANERCEPT 50 MG/ML SC SCH (13:30)
[2018-02-22] MEDS ORDERED: traMADol HCl 50 MG TAB PO PRN (16:13)
[2018-02-22] MEDS: Pantoprazole 40 MG GRANULES PACKET PO SCH (20:29)
[2018-02-22] MEDS: Atorvastatin Calcium 10 MG TAB PO SCH (20:31)
[2018-02-22] MEDS: Melatonin 3 MG TAB PO SCH (20:31)
[2018-02-22] MEDS: Donepezil HCl 10 MG TAB PO SCH (20:33)
[2018-02-22] MEDS: MEN TOP SCH (20:36)
[2018-02-22] MEDS: UREA TOP SCH (20:36)
[2018-02-22] MEDS: CAMPH TOP SCH (20:36)
[2018-02-22] MEDS: EUC TOP SCH (20:36)
[2018-02-22] MEDS: [UNRECOGNIZED DRUG - OTHER] TOP SCH (20:36)
[2018-02-22] MEDS: CICLOPIROX TOP SCH (20:36)
[2018-02-23 04:59] LABS: #Basophils 0.1 thou/uL (0.0-0.2); #Eosinphils 0.3 thou/uL (0.0-0.7); #Lymphocytes 2.1 thou/uL (1.20-3.40); #Monocytes 0.6 thou/uL (0.11-0.59); #Neutrophils 2.5 thou/uL (1.40-6.50); %Basophils 1.8 % (0.0-1.0); %Eosinophils 5.8 % (0.0-10.0); %Lymphocytes 37.7 % (21.0-51.0); %Monocytes 10.3 % (0.0-10.0); %Neutrophils 44.4 % (42.0-75.0); Hemoglobin 10.6 g/dL (12.0-16.0); Mean Corpuscular HGB CONC 36.3 g/dL (32.0-36.0); Mean Corpuscular Hemoglobin 30.3 pg (27.0-31.0); Mean Corpuscular Volume 83.3 fL (78.0-98.0); Mean Platelet Volume 6.4 fL (7.4-10.4); Platelet Count 162 thou/uL (130-400); RBC Distribution Width 13.4 % (11.5-14.5); Red Blood Cell (RBC) Count 3.49 mill/uL (4.20-5.40); White Blood Cell (WBC) Count 5.7 thou/uL (4.8-10.8)
[2018-02-23 05:05] LABS: ALT (SGPT) 14 U/L (8-55); AST (SGOT) 15 U/L (5-34); Albumin 3.2 g/dL (3.4-4.8); Alkaline Phosphatase 67 U/L (40-150); Anion Gap 11 mmol/L (10-20); BUN (Urea Nitrogen) 22 mg/dL (9.8-20.1); Bilirubin, Total 0.4 mg/dL (0.2-1.2); Calc. Creatinine Clearance 47 mL/min (70-130); Calcium 9.4 mg/dL (7.8-10.44); Carbon Dioxide 28 mmol/L (23-31); Chloride 104 mmol/L (98-107); Estimated GFR-MDRD 46; Globulin 2.5 g/dL (2.4-3.5); Glucose 136 mg/dL (83-110); Potassium 4.2 mmol/L (3.5-5.1); Protein, Total 5.7 g/dL (6.0-8.3); Sodium 139 mmol/L (136-145)
[2018-02-23] MEDS: Levothyroxine Sodium 25 MCG TAB PO SCH (05:52)
[2018-02-23] MEDS: Levothyroxine Sodium 100 MCG TAB PO SCH (05:52)
[2018-02-23] MEDS: Meropenem 1 GM in Sodium Chloride 0.9% 100 ML IVPB SCH ×2 (10:03→16:34)
[2018-02-23] MEDS: Carvedilol 12.5 MG TAB PO SCH ×2 (10:07→20:49)
[2018-02-23] MEDS: Enoxaparin Sodium 40 MG/0.4 ML SYRINGE SC SCH (10:07)
[2018-02-23] MEDS: Aspirin 325 mg Enteric Coated Tablet PO SCH (10:08)
[2018-02-23] MEDS: Lisinopril 10 MG TAB PO SCH (10:08)
[2018-02-23] MEDS: glipiZIDE 5 MG TAB PO SCH (10:08)
[2018-02-23] MEDS: Oxybutynin 5 MG TAB PO SCH (10:09)
[2018-02-23] MEDS: Polyethylene Glycol 3350 17 GM Packet PO SCH (10:36)
[2018-02-23] MEDS: HumaLOG 300 UNITS/3 ML VIAL SC PRN ×2 (10:38→12:35)
[2018-02-23 13:35] LABS: CRP (Inflammatory) Less than 0.50 mg/dL (= or < 0.5)
[2018-02-23] MEDS: Atorvastatin Calcium 10 MG TAB PO SCH (20:48)
[2018-02-23] MEDS: Melatonin 3 MG TAB PO SCH (20:48)
[2018-02-23] MEDS: HYDROcodone/Acetaminophen 10/325 mg Tablet PO PRN (20:49)
[2018-02-23] MEDS: Donepezil HCl 10 MG TAB PO SCH (20:49)
[2018-02-23] MEDS: Pantoprazole 40 MG GRANULES PACKET PO SCH (20:52)
[2018-02-23] MEDS: CAMPH TOP SCH (21:21)
[2018-02-23] MEDS: [UNRECOGNIZED DRUG - OTHER] TOP SCH (21:21)
[2018-02-23] MEDS: MEN TOP SCH (21:21)
[2018-02-23] MEDS: EUC TOP SCH (21:21)
[2018-02-23] MEDS: UREA TOP SCH (21:21)
[2018-02-23] MEDS: CICLOPIROX TOP SCH (21:21)
[2018-02-24] MEDS: Meropenem 1 GM in Sodium Chloride 0.9% 100 ML IVPB SCH ×4 (00:07→23:56)
[2018-02-24] MEDS: Levothyroxine Sodium 100 MCG TAB PO SCH (05:18)
[2018-02-24] MEDS: Levothyroxine Sodium 25 MCG TAB PO SCH (05:18)
[2018-02-24] MEDS: Enoxaparin Sodium 40 MG/0.4 ML SYRINGE SC SCH (08:28)
[2018-02-24] MEDS: glipiZIDE 5 MG TAB PO SCH (08:31)
[2018-02-24] MEDS: Aspirin 325 mg Enteric Coated Tablet PO SCH (08:33)
[2018-02-24] MEDS: Oxybutynin 5 MG TAB PO SCH (08:34)
[2018-02-24] MEDS: Carvedilol 12.5 MG TAB PO SCH ×2 (08:34→20:56)
[2018-02-24] MEDS: Lisinopril 10 MG TAB PO SCH (08:34)
[2018-02-24] MEDS: Polyethylene Glycol 3350 17 GM Packet PO SCH (08:34)
[2018-02-24] MEDS: HumaLOG 300 UNITS/3 ML VIAL SC PRN ×3 (12:04→21:09)
[2018-02-24] MEDS: Atorvastatin Calcium 10 MG TAB PO SCH (20:56)
[2018-02-24] MEDS: Donepezil HCl 10 MG TAB PO SCH (20:56)
[2018-02-24] MEDS: Pantoprazole 40 MG GRANULES PACKET PO SCH (20:56)
[2018-02-24] MEDS: Melatonin 3 MG TAB PO SCH (20:56)
[2018-02-24] MEDS: HYDROcodone/Acetaminophen 10/325 mg Tablet PO PRN (21:09)
[2018-02-24] MEDS: MEN TOP SCH (21:25)
[2018-02-24] MEDS: UREA TOP SCH (21:25)
[2018-02-24] MEDS: CAMPH TOP SCH (21:25)
[2018-02-24] MEDS: [UNRECOGNIZED DRUG - OTHER] TOP SCH (21:25)
[2018-02-24] MEDS: CICLOPIROX TOP SCH (21:25)
[2018-02-24] MEDS: EUC TOP SCH (21:25)
[2018-02-25 05:27] LABS: Platelet Count 162 thou/uL (130-400)
[2018-02-25] MEDS: Levothyroxine Sodium 25 MCG TAB PO SCH (05:31)
[2018-02-25] MEDS: Levothyroxine Sodium 100 MCG TAB PO SCH (05:31)
[2018-02-25] MEDS: Meropenem 1 GM in Sodium Chloride 0.9% 100 ML IVPB SCH ×2 (08:54→15:16)
[2018-02-25] MEDS: Enoxaparin Sodium 40 MG/0.4 ML SYRINGE SC SCH (08:58)
[2018-02-25] MEDS: Aspirin 325 mg Enteric Coated Tablet PO SCH (08:59)
[2018-02-25] MEDS: Polyethylene Glycol 3350 17 GM Packet PO SCH (08:59)
[2018-02-25] MEDS: Oxybutynin 5 MG TAB PO SCH (09:00)
[2018-02-25] MEDS: Carvedilol 12.5 MG TAB PO SCH ×2 (09:00→21:02)
[2018-02-25] MEDS: Lisinopril 10 MG TAB PO SCH (09:00)
[2018-02-25] MEDS: glipiZIDE 5 MG TAB PO SCH (09:00)
[2018-02-25] MEDS: HumaLOG 300 UNITS/3 ML VIAL SC PRN ×2 (13:09→18:46)
[2018-02-25] MEDS: Pantoprazole 40 MG GRANULES PACKET PO SCH (20:58)
[2018-02-25] MEDS: Atorvastatin Calcium 10 MG TAB PO SCH (21:00)
[2018-02-25] MEDS: Melatonin 3 MG TAB PO SCH (21:00)
[2018-02-25] MEDS: Donepezil HCl 10 MG TAB PO SCH (21:01)
[2018-02-25] MEDS: HYDROcodone/Acetaminophen 10/325 mg Tablet PO PRN (21:02)
[2018-02-25] MEDS: [UNRECOGNIZED DRUG - OTHER] TOP SCH (21:06)
[2018-02-25] MEDS: UREA TOP SCH (21:06)
[2018-02-25] MEDS: CAMPH TOP SCH (21:06)
[2018-02-25] MEDS: EUC TOP SCH (21:06)
[2018-02-25] MEDS: MEN TOP SCH (21:06)
[2018-02-25] MEDS: CICLOPIROX TOP SCH (21:06)
[2018-02-26] MEDS: Meropenem 1 GM in Sodium Chloride 0.9% 100 ML IVPB SCH ×3 (00:15→15:41)
[2018-02-26] MEDS: Levothyroxine Sodium 25 MCG TAB PO SCH (06:04)
[2018-02-26] MEDS: Levothyroxine Sodium 100 MCG TAB PO SCH (06:04)
[2018-02-26] MEDS: Enoxaparin Sodium 40 MG/0.4 ML SYRINGE SC SCH (08:53)
[2018-02-26] MEDS: Polyethylene Glycol 3350 17 GM Packet PO SCH (08:53)
[2018-02-26] MEDS: Oxybutynin 5 MG TAB PO SCH (08:55)
[2018-02-26] MEDS: Aspirin 325 mg Enteric Coated Tablet PO SCH (08:55)
[2018-02-26] MEDS: Lisinopril 10 MG TAB PO SCH (08:55)
[2018-02-26] MEDS: glipiZIDE 5 MG TAB PO SCH (08:55)
[2018-02-26] MEDS: Carvedilol 12.5 MG TAB PO SCH ×2 (08:55→22:06)
[2018-02-26] MEDS: HumaLOG 300 UNITS/3 ML VIAL SC PRN ×3 (13:33→22:16)
[2018-02-26] MEDS: Atorvastatin Calcium 10 MG TAB PO SCH (22:05)
[2018-02-26] MEDS: Pantoprazole 40 MG GRANULES PACKET PO SCH (22:05)
[2018-02-26] MEDS: Donepezil HCl 10 MG TAB PO SCH (22:06)
[2018-02-26] MEDS: Melatonin 3 MG TAB PO SCH (22:06)
[2018-02-26] MEDS: [UNRECOGNIZED DRUG - OTHER] TOP SCH (22:32)
[2018-02-26] MEDS: MEN TOP SCH (22:32)
[2018-02-26] MEDS: EUC TOP SCH (22:32)
[2018-02-26] MEDS: CAMPH TOP SCH (22:32)
[2018-02-26] MEDS: UREA TOP SCH (22:32)
[2018-02-26] MEDS: CICLOPIROX TOP SCH (22:32)
[2018-02-27] MEDS: Meropenem 1 GM in Sodium Chloride 0.9% 100 ML IVPB SCH ×3 (00:42→16:43)
[2018-02-27] MEDS: Levothyroxine Sodium 25 MCG TAB PO SCH (05:54)
[2018-02-27] MEDS: Levothyroxine Sodium 100 MCG TAB PO SCH (05:54)
[2018-02-27 05:55] LABS: Hemoglobin 10.2 g/dL (12.0-16.0); Platelet Count 153 thou/uL (130-400)
[2018-02-27] MEDS: Enoxaparin Sodium 40 MG/0.4 ML SYRINGE SC SCH (08:37)
[2018-02-27] MEDS: Lisinopril 10 MG TAB PO SCH (08:38)
[2018-02-27] MEDS: Carvedilol 12.5 MG TAB PO SCH ×2 (08:38→20:38)
[2018-02-27] MEDS: Aspirin 325 mg Enteric Coated Tablet PO SCH (08:38)
[2018-02-27] MEDS: glipiZIDE 5 MG TAB PO SCH (08:39)
[2018-02-27] MEDS: Oxybutynin 5 MG TAB PO SCH (08:39)
[2018-02-27] MEDS: Polyethylene Glycol 3350 17 GM Packet PO SCH (08:39)
[2018-02-27] MEDS: HumaLOG 300 UNITS/3 ML VIAL SC PRN ×2 (12:51→17:39)
[2018-02-27] MEDS: Melatonin 3 MG TAB PO SCH (20:38)
[2018-02-27] MEDS: Donepezil HCl 10 MG TAB PO SCH (20:39)
[2018-02-27] MEDS: Atorvastatin Calcium 10 MG TAB PO SCH (20:39)
[2018-02-27] MEDS: Pantoprazole 40 MG GRANULES PACKET PO SCH (21:38)
[2018-02-27] MEDS: EUC TOP SCH (21:39)
[2018-02-27] MEDS: CICLOPIROX TOP SCH (21:39)
[2018-02-27] MEDS: UREA TOP SCH (21:39)
[2018-02-27] MEDS: MEN TOP SCH (21:39)
[2018-02-27] MEDS: [UNRECOGNIZED DRUG - OTHER] TOP SCH (21:39)
[2018-02-27] MEDS: CAMPH TOP SCH (21:39)
[2018-02-28] MEDS: Meropenem 1 GM in Sodium Chloride 0.9% 100 ML IVPB SCH ×3 (00:29→15:47)
[2018-02-28] MEDS: Levothyroxine Sodium 25 MCG TAB PO SCH (06:21)
[2018-02-28] MEDS: Levothyroxine Sodium 100 MCG TAB PO SCH (06:21)
[2018-02-28] MEDS: Carvedilol 12.5 MG TAB PO SCH ×2 (08:57→21:19)
[2018-02-28] MEDS: Aspirin 325 mg Enteric Coated Tablet PO SCH (08:57)
[2018-02-28] MEDS: glipiZIDE 5 MG TAB PO SCH (08:57)
[2018-02-28] MEDS: Lisinopril 10 MG TAB PO SCH (08:57)
[2018-02-28] MEDS: Oxybutynin 5 MG TAB PO SCH (08:57)
[2018-02-28] MEDS: Polyethylene Glycol 3350 17 GM Packet PO SCH (08:58)
[2018-02-28] MEDS: Enoxaparin Sodium 40 MG/0.4 ML SYRINGE SC SCH (09:36)
[2018-02-28] MEDS: HumaLOG 300 UNITS/3 ML VIAL SC PRN ×3 (12:42→21:20)
[2018-02-28] MEDS: Pantoprazole 40 MG GRANULES PACKET PO SCH (21:16)
[2018-02-28] MEDS: Melatonin 3 MG TAB PO SCH (21:16)
[2018-02-28] MEDS: Atorvastatin Calcium 10 MG TAB PO SCH (21:16)
[2018-02-28] MEDS: Donepezil HCl 10 MG TAB PO SCH (21:17)
[2018-02-28] MEDS: EUC TOP SCH (21:19)
[2018-02-28] MEDS: MEN TOP SCH (21:19)
[2018-02-28] MEDS: CAMPH TOP SCH (21:19)
[2018-02-28] MEDS: [UNRECOGNIZED DRUG - OTHER] TOP SCH (21:19)
[2018-02-28] MEDS: UREA TOP SCH (21:19)
[2018-02-28] MEDS: CICLOPIROX TOP SCH (21:19)
[2018-02-28] MEDS: HYDROcodone/Acetaminophen 10/325 mg Tablet PO PRN (21:32)
[2018-03-01] MEDS: Meropenem 1 GM in Sodium Chloride 0.9% 100 ML IVPB SCH ×3 (00:36→16:50)
[2018-03-01] MEDS: Ondansetron ODT 4 MG TAB PO PRN ×2 (02:40→08:22)
[2018-03-01] MEDS: Levothyroxine Sodium 100 MCG TAB PO SCH (05:49)
[2018-03-01] MEDS: Levothyroxine Sodium 25 MCG TAB PO SCH (05:49)
[2018-03-01 06:01] LABS: Hemoglobin 10.7 g/dL (12.0-16.0)
[2018-03-01 06:02] LABS: Platelet Count 160 thou/uL (130-400)
[2018-03-01] MEDS: Enoxaparin Sodium 40 MG/0.4 ML SYRINGE SC SCH (08:32)
[2018-03-01] MEDS: HYDROcodone/Acetaminophen 10/325 mg Tablet PO PRN (10:12)
[2018-03-01] MEDS: Aspirin 325 mg Enteric Coated Tablet PO SCH (11:33)
[2018-03-01] MEDS: Carvedilol 12.5 MG TAB PO SCH ×2 (11:34→23:13)
[2018-03-01] MEDS: glipiZIDE 5 MG TAB PO SCH (11:34)
[2018-03-01] MEDS: Lisinopril 10 MG TAB PO SCH (11:34)
[2018-03-01] MEDS: Oxybutynin 5 MG TAB PO SCH (11:35)
[2018-03-01] MEDS: Polyethylene Glycol 3350 17 GM Packet PO SCH (11:35)
[2018-03-01] MEDS: ETANERCEPT 50 MG/ML SC SCH (14:40)
[2018-03-01] MEDS: Sodium Chloride 0.9% 1,000 ML IV SCH (18:15)
[2018-03-01] MEDS: Donepezil HCl 10 MG TAB PO SCH (23:13)
[2018-03-01] MEDS: Atorvastatin Calcium 10 MG TAB PO SCH (23:13)
[2018-03-01] MEDS: [UNRECOGNIZED DRUG - OTHER] TOP SCH (23:14)
[2018-03-01] MEDS: CICLOPIROX TOP SCH (23:14)
[2018-03-01] MEDS: CAMPH TOP SCH (23:14)
[2018-03-01] MEDS: Melatonin 3 MG TAB PO SCH (23:14)
[2018-03-01] MEDS: UREA TOP SCH (23:14)
[2018-03-01] MEDS: Pantoprazole 40 MG GRANULES PACKET PO SCH (23:14)
[2018-03-01] MEDS: MEN TOP SCH (23:14)
[2018-03-01] MEDS: EUC TOP SCH (23:14)
[2018-03-02] MEDS: Meropenem 1 GM in Sodium Chloride 0.9% 100 ML IVPB SCH ×3 (00:03→16:49)
[2018-03-02] MEDS: Levothyroxine Sodium 25 MCG TAB PO SCH (05:35)
[2018-03-02] MEDS: Levothyroxine Sodium 100 MCG TAB PO SCH (05:35)
[2018-03-02 06:13] LABS: ALT (SGPT) 19 U/L (8-55); AST (SGOT) 14 U/L (5-34); Albumin 2.9 g/dL (3.4-4.8); Alkaline Phosphatase 60 U/L (40-150); Anion Gap 12 mmol/L (10-20); BUN (Urea Nitrogen) 29 mg/dL (9.8-20.1); Bilirubin, Total 0.9 mg/dL (0.2-1.2); Calc. Creatinine Clearance 47 mL/min (70-130); Calcium 8.5 mg/dL (7.8-10.44); Carbon Dioxide 27 mmol/L (23-31); Chloride 104 mmol/L (98-107); Estimated GFR-MDRD 46; Globulin 2.5 g/dL (2.4-3.5); Glucose 116 mg/dL (83-110); Potassium 4.2 mmol/L (3.5-5.1); Protein, Total 5.4 g/dL (6.0-8.3); Sodium 139 mmol/L (136-145)
[2018-03-02 06:32] LABS: #Basophils 0.1 thou/uL (0.0-0.2); #Eosinphils 0.2 thou/uL (0.0-0.7); #Lymphocytes 3.5 thou/uL (1.20-3.40); #Monocytes 1.2 thou/uL (0.11-0.59); #Neutrophils 6.7 thou/uL (1.40-6.50); %Basophils 0.6 % (0.0-1.0); %Eosinophils 2.1 % (0.0-10.0); %Lymphocytes 29.5 % (21.0-51.0); %Neutrophils 57.7 % (42.0-75.0); Hemoglobin 9.5 g/dL (12.0-16.0); Mean Corpuscular HGB CONC 36.3 g/dL (32.0-36.0); Mean Corpuscular Volume 82.6 fL (78.0-98.0); Mean Platelet Volume 6.4 fL (7.4-10.4); Platelet Count 147 thou/uL (130-400); Red Blood Cell (RBC) Count 3.16 mill/uL (4.20-5.40); White Blood Cell (WBC) Count 11.7 thou/uL (4.8-10.8)
[2018-03-02] MEDS: Sodium Chloride 0.9% 1,000 ML IV SCH (08:00)
[2018-03-02] MEDS ORDERED: traMADol HCl 50 MG TAB PO PRN (09:32)
[2018-03-02] MEDS: Enoxaparin Sodium 40 MG/0.4 ML SYRINGE SC SCH (09:54)
[2018-03-02] MEDS: Polyethylene Glycol 3350 17 GM Packet PO SCH (09:54)
[2018-03-02] MEDS: Lisinopril 10 MG TAB PO SCH (09:55)
[2018-03-02] MEDS: Carvedilol 12.5 MG TAB PO SCH ×2 (09:55→20:50)
[2018-03-02] MEDS: Aspirin 325 mg Enteric Coated Tablet PO SCH (09:55)
[2018-03-02] MEDS: Oxybutynin 5 MG TAB PO SCH (09:55)
[2018-03-02] MEDS: glipiZIDE 5 MG TAB PO SCH (09:56)
[2018-03-02] MEDS: Melatonin 3 MG TAB PO SCH (20:47)
[2018-03-02] MEDS: Pantoprazole 40 MG GRANULES PACKET PO SCH (20:47)
[2018-03-02] MEDS: Atorvastatin Calcium 10 MG TAB PO SCH (20:48)
[2018-03-02] MEDS: Donepezil HCl 10 MG TAB PO SCH (20:49)
[2018-03-02] MEDS: Ondansetron ODT 4 MG TAB PO PRN (21:26)
[2018-03-02] MEDS: HYDROcodone/Acetaminophen 10/325 mg Tablet PO PRN (22:28)
[2018-03-02] MEDS: MEN TOP SCH (22:33)
[2018-03-02] MEDS: EUC TOP SCH (22:33)
[2018-03-02] MEDS: UREA TOP SCH (22:33)
[2018-03-02] MEDS: CAMPH TOP SCH (22:33)
[2018-03-02] MEDS: CICLOPIROX TOP SCH (22:33)
[2018-03-02] MEDS: [UNRECOGNIZED DRUG - OTHER] TOP SCH (22:33)
[2018-03-03] MEDS ORDERED: Meropenem 1 GM in Sodium Chloride 0.9% 100 ML IVPB SCH (00:45)
[2018-03-03] MEDS: Meropenem 1 GM in Sodium Chloride 0.9% 100 ML IVPB SCH ×3 (01:08→17:46)
[2018-03-03] MEDS ORDERED: Promethazine HCl 25 MG SUPP ONE (01:12)
[2018-03-03] MEDS ORDERED: Promethazine HCl 25 MG SUPP PR SCH (01:15)
[2018-03-03] MEDS: Levothyroxine Sodium 25 MCG TAB PO SCH (06:11)
[2018-03-03] MEDS: Levothyroxine Sodium 100 MCG TAB PO SCH (06:11)
[2018-03-03 06:31] LABS: #Eosinphils 0.4 thou/uL (0.0-0.7); #Monocytes 0.9 thou/uL (0.11-0.59); %Basophils 0.6 % (0.0-1.0); %Eosinophils 4.5 % (0.0-10.0); %Lymphocytes 24.1 % (21.0-51.0); %Monocytes 10.8 % (0.0-10.0); Hemoglobin 9.2 g/dL (12.0-16.0); Mean Corpuscular HGB CONC 35.9 g/dL (32.0-36.0); Mean Corpuscular Hemoglobin 29.5 pg (27.0-31.0); Mean Corpuscular Volume 82.3 fL (78.0-98.0); Mean Platelet Volume 6.6 fL (7.4-10.4); Platelet Count 136 thou/uL (130-400); RBC Distribution Width 12.8 % (11.5-14.5); Red Blood Cell (RBC) Count 3.12 mill/uL (4.20-5.40); White Blood Cell (WBC) Count 8.3 thou/uL (4.8-10.8)
[2018-03-03 06:35] LABS: Anion Gap 10 mmol/L (10-20); BUN (Urea Nitrogen) 27 mg/dL (9.8-20.1); Calc. Creatinine Clearance 57 mL/min (70-130); Calcium 8.9 mg/dL (7.8-10.44); Carbon Dioxide 28 mmol/L (23-31); Chloride 104 mmol/L (98-107); Estimated GFR-MDRD 57; Glucose 114 mg/dL (83-110); Potassium 4.4 mmol/L (3.5-5.1); Sodium 138 mmol/L (136-145)
[2018-03-03] MEDS: Aspirin 325 mg Enteric Coated Tablet PO SCH (09:32)
[2018-03-03] MEDS: Carvedilol 12.5 MG TAB PO SCH ×2 (09:32→21:40)
[2018-03-03] MEDS: Lisinopril 10 MG TAB PO SCH (09:32)
[2018-03-03] MEDS: Oxybutynin 5 MG TAB PO SCH (09:32)
[2018-03-03] MEDS: glipiZIDE 5 MG TAB PO SCH (09:32)
[2018-03-03] MEDS: Enoxaparin Sodium 40 MG/0.4 ML SYRINGE SC SCH (09:33)
[2018-03-03] MEDS: Polyethylene Glycol 3350 17 GM Packet PO SCH (09:34)
[2018-03-03] MEDS ORDERED: Calcium Carbonate 500 MG ChewTAB PO PRN (09:52)
[2018-03-03] MEDS: Sodium Chloride 0.9% 1,000 ML IV SCH (10:16)
[2018-03-03] MEDS: Melatonin 3 MG TAB PO SCH (21:39)
[2018-03-03] MEDS: Pantoprazole 40 MG GRANULES PACKET PO SCH (21:39)
[2018-03-03] MEDS: EUC TOP SCH (21:40)
[2018-03-03] MEDS: CICLOPIROX TOP SCH (21:40)
[2018-03-03] MEDS: Atorvastatin Calcium 10 MG TAB PO SCH (21:40)
[2018-03-03] MEDS: [UNRECOGNIZED DRUG - OTHER] TOP SCH (21:40)
[2018-03-03] MEDS: MEN TOP SCH (21:40)
[2018-03-03] MEDS: Donepezil HCl 10 MG TAB PO SCH (21:40)
[2018-03-03] MEDS: UREA TOP SCH (21:40)
[2018-03-03] MEDS: CAMPH TOP SCH (21:40)
[2018-03-04] MEDS: Sodium Chloride 0.9% 1,000 ML IV SCH (00:45)
[2018-03-04] MEDS: Meropenem 1 GM in Sodium Chloride 0.9% 100 ML IVPB SCH ×3 (01:13→17:05)
[2018-03-04] MEDS: Levothyroxine Sodium 25 MCG TAB PO SCH (06:02)
[2018-03-04] MEDS: Levothyroxine Sodium 100 MCG TAB PO SCH (06:02)
[2018-03-04] MEDS: glipiZIDE 5 MG TAB PO SCH (09:50)
[2018-03-04] MEDS: Carvedilol 12.5 MG TAB PO SCH ×2 (09:50→20:56)
[2018-03-04] MEDS: Lisinopril 10 MG TAB PO SCH (09:50)
[2018-03-04] MEDS: Aspirin 325 mg Enteric Coated Tablet PO SCH (09:50)
[2018-03-04] MEDS: Oxybutynin 5 MG TAB PO SCH (09:50)
[2018-03-04] MEDS: Polyethylene Glycol 3350 17 GM Packet PO SCH (09:51)
[2018-03-04] MEDS: Enoxaparin Sodium 40 MG/0.4 ML SYRINGE SC SCH (09:51)
[2018-03-04] MEDS: METHOTREXATE 50 MG/2 ML SC SCH (13:55)
[2018-03-04] MEDS: HumaLOG 300 UNITS/3 ML VIAL SC PRN (18:13)
[2018-03-04] MEDS: Melatonin 3 MG TAB PO SCH (20:56)
[2018-03-04] MEDS: Atorvastatin Calcium 10 MG TAB PO SCH (20:56)
[2018-03-04] MEDS: Donepezil HCl 10 MG TAB PO SCH (20:57)
[2018-03-04] MEDS: HYDROcodone/Acetaminophen 10/325 mg Tablet PO PRN (20:57)
[2018-03-04] MEDS: CICLOPIROX TOP SCH (20:58)
[2018-03-04] MEDS: CAMPH TOP SCH (20:58)
[2018-03-04] MEDS: MEN TOP SCH (20:58)
[2018-03-04] MEDS: [UNRECOGNIZED DRUG - OTHER] TOP SCH (20:58)
[2018-03-04] MEDS: UREA TOP SCH (20:58)
[2018-03-04] MEDS: EUC TOP SCH (20:58)
[2018-03-04] MEDS: Pantoprazole 40 MG GRANULES PACKET PO SCH (20:58)
[2018-03-05] MEDS: Meropenem 1 GM in Sodium Chloride 0.9% 100 ML IVPB SCH ×3 (01:19→18:08)
[2018-03-05] MEDS: HYDROcodone/Acetaminophen 10/325 mg Tablet PO PRN (01:57)
[2018-03-05] MEDS: Levothyroxine Sodium 100 MCG TAB PO SCH (05:01)
[2018-03-05] MEDS: Levothyroxine Sodium 25 MCG TAB PO SCH (05:02)
[2018-03-05 05:10] LABS: Hemoglobin 9.6 g/dL (12.0-16.0); Platelet Count 161 thou/uL (130-400)
[2018-03-05] MEDS: Polyethylene Glycol 3350 17 GM Packet PO SCH (09:55)
[2018-03-05] MEDS: Aspirin 325 mg Enteric Coated Tablet PO SCH (09:55)
[2018-03-05] MEDS: Enoxaparin Sodium 40 MG/0.4 ML SYRINGE SC SCH (09:55)
[2018-03-05] MEDS: glipiZIDE 5 MG TAB PO SCH (09:55)
[2018-03-05] MEDS: Lisinopril 10 MG TAB PO SCH (09:56)
[2018-03-05] MEDS: Oxybutynin 5 MG TAB PO SCH (09:56)
[2018-03-05] MEDS: Carvedilol 12.5 MG TAB PO SCH ×2 (09:56→20:40)
[2018-03-05] MEDS: HumaLOG 300 UNITS/3 ML VIAL SC PRN ×2 (13:40→18:21)
[2018-03-05] MEDS: Pantoprazole 40 MG GRANULES PACKET PO SCH (20:37)
[2018-03-05] MEDS: Atorvastatin Calcium 40 MG TAB PO SCH (20:40)
[2018-03-05] MEDS: Donepezil HCl 10 MG TAB PO SCH (20:40)
[2018-03-05] MEDS: Melatonin 3 MG TAB PO SCH (20:40)
[2018-03-05] MEDS: CAMPH TOP SCH (22:28)
[2018-03-05] MEDS: EUC TOP SCH (22:28)
[2018-03-05] MEDS: CICLOPIROX TOP SCH (22:28)
[2018-03-05] MEDS: MEN TOP SCH (22:28)
[2018-03-05] MEDS: UREA TOP SCH (22:28)
[2018-03-05] MEDS: [UNRECOGNIZED DRUG - OTHER] TOP SCH (22:28)
[2018-03-06] MEDS: Meropenem 1 GM in Sodium Chloride 0.9% 100 ML IVPB SCH ×4 (01:39→18:23)
[2018-03-06] MEDS: Levothyroxine Sodium 100 MCG TAB PO SCH (06:43)
[2018-03-06] MEDS: Levothyroxine Sodium 25 MCG TAB PO SCH (06:43)
[2018-03-06] MEDS: Enoxaparin Sodium 40 MG/0.4 ML SYRINGE SC SCH (09:51)
[2018-03-06] MEDS: Polyethylene Glycol 3350 17 GM Packet PO SCH (09:51)
[2018-03-06] MEDS: glipiZIDE 5 MG TAB PO SCH (09:52)
[2018-03-06] MEDS: Lisinopril 10 MG TAB PO SCH (09:52)
[2018-03-06] MEDS: Carvedilol 12.5 MG TAB PO SCH ×2 (09:52→21:18)
[2018-03-06] MEDS: Aspirin 325 mg Enteric Coated Tablet PO SCH (09:52)
[2018-03-06] MEDS: Oxybutynin 5 MG TAB PO SCH (09:52)
[2018-03-06] MEDS: HumaLOG 300 UNITS/3 ML VIAL SC PRN ×2 (14:13→18:44)
[2018-03-06] MEDS: Pantoprazole 40 MG GRANULES PACKET PO SCH (21:17)
[2018-03-06] MEDS: Melatonin 3 MG TAB PO SCH (21:17)
[2018-03-06] MEDS: Atorvastatin Calcium 40 MG TAB PO SCH (21:18)
[2018-03-06] MEDS: CAMPH TOP SCH (21:19)
[2018-03-06] MEDS: [UNRECOGNIZED DRUG - OTHER] TOP SCH (21:19)
[2018-03-06] MEDS: CICLOPIROX TOP SCH (21:19)
[2018-03-06] MEDS: Donepezil HCl 10 MG TAB PO SCH (21:19)
[2018-03-06] MEDS: EUC TOP SCH (21:19)
[2018-03-06] MEDS: UREA TOP SCH (21:19)
[2018-03-06] MEDS: HYDROcodone/Acetaminophen 10/325 mg Tablet PO PRN (21:19)
[2018-03-06] MEDS: MEN TOP SCH (21:19)
[2018-03-07] MEDS: Meropenem 1 GM in Sodium Chloride 0.9% 100 ML IVPB SCH ×3 (02:17→18:43)
[2018-03-07 04:59] LABS: Hemoglobin 9.4 g/dL (12.0-16.0); Platelet Count 169 thou/uL (130-400)
[2018-03-07] MEDS: HYDROcodone/Acetaminophen 10/325 mg Tablet PO PRN (05:03)
[2018-03-07] MEDS: Levothyroxine Sodium 25 MCG TAB PO SCH (05:05)
[2018-03-07] MEDS: Levothyroxine Sodium 100 MCG TAB PO SCH (05:05)
[2018-03-07] MEDS: Enoxaparin Sodium 40 MG/0.4 ML SYRINGE SC SCH (09:51)
[2018-03-07] MEDS: Polyethylene Glycol 3350 17 GM Packet PO SCH (09:52)
[2018-03-07] MEDS: Lisinopril 10 MG TAB PO SCH (09:52)
[2018-03-07] MEDS: Aspirin 325 mg Enteric Coated Tablet PO SCH (09:53)
[2018-03-07] MEDS: Carvedilol 12.5 MG TAB PO SCH ×2 (09:53→20:42)
[2018-03-07] MEDS: glipiZIDE 5 MG TAB PO SCH (09:53)
[2018-03-07] MEDS: Oxybutynin 5 MG TAB PO SCH (09:53)
[2018-03-07] MEDS: HumaLOG 300 UNITS/3 ML VIAL SC PRN ×3 (12:25→20:54)
[2018-03-07] MEDS: Atorvastatin Calcium 40 MG TAB PO SCH (20:42)
[2018-03-07] MEDS: Melatonin 3 MG TAB PO SCH (20:43)
[2018-03-07] MEDS: Donepezil HCl 10 MG TAB PO SCH (20:43)
[2018-03-07] MEDS: Pantoprazole 40 MG GRANULES PACKET PO SCH (20:43)
[2018-03-07] MEDS: EUC TOP SCH (20:44)
[2018-03-07] MEDS: UREA TOP SCH (20:44)
[2018-03-07] MEDS: CICLOPIROX TOP SCH (20:44)
[2018-03-07] MEDS: MEN TOP SCH (20:44)
[2018-03-07] MEDS: CAMPH TOP SCH (20:44)
[2018-03-07] MEDS: [UNRECOGNIZED DRUG - OTHER] TOP SCH (20:44)
[2018-03-08] MEDS: Meropenem 1 GM in Sodium Chloride 0.9% 100 ML IVPB SCH ×3 (01:50→17:58)
[2018-03-08] MEDS: Levothyroxine Sodium 100 MCG TAB PO SCH (05:18)
[2018-03-08] MEDS: Levothyroxine Sodium 25 MCG TAB PO SCH (05:18)
[2018-03-08] MEDS: Lisinopril 10 MG TAB PO SCH (09:25)
[2018-03-08] MEDS: Polyethylene Glycol 3350 17 GM Packet PO SCH (09:26)
[2018-03-08] MEDS: Carvedilol 12.5 MG TAB PO SCH ×2 (09:27→20:55)
[2018-03-08] MEDS: Aspirin 325 mg Enteric Coated Tablet PO SCH (09:27)
[2018-03-08] MEDS: glipiZIDE 5 MG TAB PO SCH (09:27)
[2018-03-08] MEDS: Oxybutynin 5 MG TAB PO SCH (09:27)
[2018-03-08] MEDS: Enoxaparin Sodium 40 MG/0.4 ML SYRINGE SC SCH (09:27)
[2018-03-08] MEDS: HumaLOG 300 UNITS/3 ML VIAL SC PRN ×2 (12:41→17:59)
[2018-03-08] MEDS: ETANERCEPT 50 MG/ML SC SCH (16:58)
[2018-03-08] MEDS: Pantoprazole 40 MG GRANULES PACKET PO SCH (20:53)
[2018-03-08] MEDS: Melatonin 3 MG TAB PO SCH (20:55)
[2018-03-08] MEDS: Atorvastatin Calcium 40 MG TAB PO SCH (20:55)
[2018-03-08] MEDS: Donepezil HCl 10 MG TAB PO SCH (20:55)
[2018-03-08] MEDS: UREA TOP SCH (20:56)
[2018-03-08] MEDS: CAMPH TOP SCH (20:56)
[2018-03-08] MEDS: CICLOPIROX TOP SCH (20:56)
[2018-03-08] MEDS: MEN TOP SCH (20:56)
[2018-03-08] MEDS: [UNRECOGNIZED DRUG - OTHER] TOP SCH (20:56)
[2018-03-08] MEDS: EUC TOP SCH (20:56)
[2018-03-08] MEDS: HYDROcodone/Acetaminophen 10/325 mg Tablet PO PRN (21:35)
[2018-03-09] MEDS: Meropenem 1 GM in Sodium Chloride 0.9% 100 ML IVPB SCH ×3 (01:42→17:31)
[2018-03-09 04:58] LABS: #Basophils 0.1 thou/uL (0.0-0.2); #Eosinphils 0.2 thou/uL (0.0-0.7); #Lymphocytes 1.3 thou/uL (1.20-3.40); #Monocytes 0.3 thou/uL (0.11-0.59); #Neutrophils 2.6 thou/uL (1.40-6.50); %Basophils 1.6 % (0.0-1.0); %Eosinophils 5.1 % (0.0-10.0); %Lymphocytes 28.6 % (21.0-51.0); %Monocytes 7.1 % (0.0-10.0); %Neutrophils 57.6 % (42.0-75.0); Hemoglobin 9.5 g/dL (12.0-16.0); Mean Corpuscular HGB CONC 36.9 g/dL (32.0-36.0); Mean Corpuscular Hemoglobin 30.4 pg (27.0-31.0); Mean Corpuscular Volume 82.3 fL (78.0-98.0); Mean Platelet Volume 5.9 fL (7.4-10.4); Platelet Count 187 thou/uL (130-400); RBC Distribution Width 12.7 % (11.5-14.5); Red Blood Cell (RBC) Count 3.12 mill/uL (4.20-5.40); White Blood Cell (WBC) Count 4.4 thou/uL (4.8-10.8)
[2018-03-09] MEDS: Levothyroxine Sodium 100 MCG TAB PO SCH (05:01)
[2018-03-09] MEDS: Levothyroxine Sodium 25 MCG TAB PO SCH (05:01)
[2018-03-09 05:08] LABS: ALT (SGPT) 19 U/L (8-55); AST (SGOT) 15 U/L (5-34); Albumin 3.1 g/dL (3.4-4.8); Alkaline Phosphatase 62 U/L (40-150); Anion Gap 12 mmol/L (10-20); BUN (Urea Nitrogen) 19 mg/dL (9.8-20.1); Bilirubin, Total 0.4 mg/dL (0.2-1.2); Calc. Creatinine Clearance 54 mL/min (70-130); Calcium 9.1 mg/dL (7.8-10.44); Carbon Dioxide 26 mmol/L (23-31); Chloride 105 mmol/L (98-107); Estimated GFR-MDRD 52; Globulin 2.7 g/dL (2.4-3.5); Glucose 133 mg/dL (83-110); Potassium 4.1 mmol/L (3.5-5.1); Protein, Total 5.8 g/dL (6.0-8.3); Sodium 139 mmol/L (136-145)
[2018-03-09] MEDS: glipiZIDE 5 MG TAB PO SCH (09:23)
[2018-03-09] MEDS: Lisinopril 10 MG TAB PO SCH (09:23)
[2018-03-09] MEDS: Oxybutynin 5 MG TAB PO SCH (09:26)
[2018-03-09] MEDS: Carvedilol 12.5 MG TAB PO SCH ×2 (09:26→20:47)
[2018-03-09] MEDS: Aspirin 325 mg Enteric Coated Tablet PO SCH (09:26)
[2018-03-09] MEDS: Polyethylene Glycol 3350 17 GM Packet PO SCH (09:27)
[2018-03-09] MEDS: Enoxaparin Sodium 40 MG/0.4 ML SYRINGE SC SCH (09:27)
[2018-03-09] MEDS: HumaLOG 300 UNITS/3 ML VIAL SC PRN ×2 (09:30→18:26)
[2018-03-09 12:06] LABS: Bilirubin Negative (Negative); Blood, Urine Trace (Negative); Clarity Clear (Clear); Glucose, Urine (Dipstick) Negative (Negative); Leukocyte Negative (Negative); Nitrite Negative (Negative); Protein, Urine (Dipstick) 30 mg/dL (Neg-Trace); Specific Gravity, Urine 1.015 (1.005-1.030); Urobilinogen 0.2 mg/dL (0.2-1.0)
[2018-03-09 12:09] LABS: RBC/HPF 0-3 HPF (0-3)
[2018-03-09 12:10] LABS: Bacteria/HPF 1+ HPF (None Seen); Squamous Epithelial 0-3 HPF (0-3); WBC/HPF 0-3 HPF (0-3)
[2018-03-09 12:54] VITALS: BMI 32.1
[2018-03-09] MEDS: Donepezil HCl 10 MG TAB PO SCH (20:47)
[2018-03-09] MEDS: HYDROcodone/Acetaminophen 10/325 mg Tablet PO PRN (20:47)
[2018-03-09] MEDS: Atorvastatin Calcium 40 MG TAB PO SCH (20:47)
[2018-03-09] MEDS: Pantoprazole 40 MG GRANULES PACKET PO SCH (20:48)
[2018-03-09] MEDS: Melatonin 3 MG TAB PO SCH (20:48)
[2018-03-10] MEDS: Meropenem 1 GM in Sodium Chloride 0.9% 100 ML IVPB SCH ×2 (01:47→10:55)
[2018-03-10] MEDS: Levothyroxine Sodium 25 MCG TAB PO SCH (05:18)
[2018-03-10] MEDS: Levothyroxine Sodium 100 MCG TAB PO SCH (05:18)
[2018-03-10] MEDS: Enoxaparin Sodium 40 MG/0.4 ML SYRINGE SC SCH (08:52)
[2018-03-10] MEDS: Carvedilol 12.5 MG TAB PO SCH ×2 (08:56→20:53)
[2018-03-10] MEDS: glipiZIDE 5 MG TAB PO SCH (08:56)
[2018-03-10] MEDS: Oxybutynin 5 MG TAB PO SCH (08:57)
[2018-03-10] MEDS: Lisinopril 10 MG TAB PO SCH (08:57)
[2018-03-10] MEDS: Aspirin 325 mg Enteric Coated Tablet PO SCH (08:57)
[2018-03-10] MEDS: Polyethylene Glycol 3350 17 GM Packet PO SCH (09:03)
[2018-03-10] MEDS: HumaLOG 300 UNITS/3 ML VIAL SC PRN ×2 (12:23→20:53)
[2018-03-10] MEDS: Pantoprazole 40 MG GRANULES PACKET PO SCH (20:52)
[2018-03-10] MEDS: Donepezil HCl 10 MG TAB PO SCH (20:53)
[2018-03-10] MEDS: HYDROcodone/Acetaminophen 10/325 mg Tablet PO PRN (20:54)
[2018-03-10] MEDS: Melatonin 3 MG TAB PO SCH (20:54)
[2018-03-10] MEDS: Atorvastatin Calcium 40 MG TAB PO SCH (20:54)
[2018-03-11] MEDS: Levothyroxine Sodium 100 MCG TAB PO SCH (05:00)
[2018-03-11] MEDS: Levothyroxine Sodium 25 MCG TAB PO SCH (05:00)
[2018-03-11 05:19] LABS: Hemoglobin 9.6 g/dL (12.0-16.0); Platelet Count 179 thou/uL (130-400)
[2018-03-11 07:02] VITALS: BP 115/68; TEMP 97.6
[2018-03-11] MEDS: Aspirin 325 mg Enteric Coated Tablet PO SCH (08:36)
[2018-03-11] MEDS: Carvedilol 12.5 MG TAB PO SCH (08:36)
[2018-03-11] MEDS: Enoxaparin Sodium 40 MG/0.4 ML SYRINGE SC SCH (08:37)
[2018-03-11] MEDS: glipiZIDE 5 MG TAB PO SCH (08:37)
[2018-03-11] MEDS: Lisinopril 10 MG TAB PO SCH (08:37)
[2018-03-11] MEDS: Oxybutynin 5 MG TAB PO SCH (08:37)
[2018-03-11] MEDS: Polyethylene Glycol 3350 17 GM Packet PO SCH (08:38)
[2018-03-11] MEDS: METHOTREXATE 50 MG/2 ML SC SCH (13:31)
== END 2018-03-11 13:45 | DRG 872 ==
LOC: BURMED 14:10
PROVIDERS: ADMIT Family Medicine; ATTEND Family Medicine
DX: A41.9 Sepsis, unspecified organism (principal); N39.0 Urinary tract infection, site not specified; E11.9 Type 2 diabetes mellitus without complications; E78.5 Hyperlipidemia, unspecified; I10 Essential (primary) hypertension; Z95.5 Presence of coronary angioplasty implant and graft; Z96.653 Presence of artificial knee joint, bilateral; Z88.1 Allergy status to other antibiotic agents; Z88.0 Allergy status to penicillin; B96.20 Unspecified Escherichia coli [E. coli] as the cause of diseases classified elsewhere; Z16.24 Resistance to multiple antibiotics; E03.9 Hypothyroidism, unspecified; M06.9 Rheumatoid arthritis, unspecified; I25.10 Atherosclerotic heart disease of native coronary artery without angina pectoris; Z66 Do not resuscitate; Z79.4 Long term (current) use of insulin; F03.90 Unspecified dementia, unspecified severity, without behavioral disturbance, psychotic disturbance, mood disturbance, and anxiety; G89.29 Other chronic pain
CPT/HCPCS: 36415; 36416; 80048; 80053; 81001; 82565; 85014; 85018; 85025; 85049; 86140; 87086; A4216; G8978-GP-CL; G8979-GP-CJ; G9168-GN-CK; G9169-GN-CJ; J1642; J1650; J2185; J7050; Q0162

== ENCOUNTER 2018-09-07 13:38 | Emergency (ER) | payer MEDICARE, OTHER ==
[2018-09-07] MEDS ORDERED: Mag-Al Plus 1200 MG/1200 MG/120 MG/30 ML UDCUP ONE ×2 (14:16→14:21)
[2018-09-07] MEDS ORDERED: Lidocaine Viscous Sol 2% 15 ml UD Cup ONE (14:16)
== END 2018-09-07 15:08 | disposition home or self-care (01) ==
LOC: BURERS 13:38
DX: K20.9 Esophagitis, unspecified (principal); E11.9 Type 2 diabetes mellitus without complications; E03.9 Hypothyroidism, unspecified; I11.0 Hypertensive heart disease with heart failure; I50.9 Heart failure, unspecified; E78.5 Hyperlipidemia, unspecified; M19.90 Unspecified osteoarthritis, unspecified site; J44.9 Chronic obstructive pulmonary disease, unspecified; Z79.899 Other long term (current) drug therapy; Z79.891 Long term (current) use of opiate analgesic
CPT/HCPCS: 99283

== ENCOUNTER 2018-10-09 12:48 | Observation (INO) | payer MEDICARE, OTHER ==
[2018-10-09 13:40] LABS: #Basophils 0.1 thou/uL (0.0-0.2); #Eosinphils 0.3 thou/uL (0.0-0.7); #Lymphocytes 2.2 thou/uL (1.20-3.40); #Monocytes 1.3 thou/uL (0.11-0.59); #Neutrophils 9.8 thou/uL (1.40-6.50); %Basophils 0.5 % (0.0-1.0); %Eosinophils 2.4 % (0.0-10.0); %Lymphocytes 16.4 % (21.0-51.0); %Monocytes 9.5 % (0.0-10.0); %Neutrophils 71.3 % (42.0-75.0); Hemoglobin 9.9 g/dL (12.0-16.0); Mean Corpuscular HGB CONC 31.3 g/dL (32.0-36.0); Mean Corpuscular Hemoglobin 30.2 pg (27.0-31.0); Mean Corpuscular Volume 96.7 fL (78.0-98.0); Mean Platelet Volume 7.4 fL (7.4-10.4); Platelet Count 175 thou/uL (130-400); RBC Distribution Width 15.5 % (11.5-14.5); Red Blood Cell (RBC) Count 3.26 mill/uL (4.20-5.40); White Blood Cell (WBC) Count 13.7 thou/uL (4.8-10.8)
[2018-10-09 13:53] LABS: ALT (SGPT) 12 U/L (8-55); AST (SGOT) 11 U/L (5-34); Albumin 3.5 g/dL (3.4-4.8); Alkaline Phosphatase 45 U/L (40-150); Anion Gap 20 mmol/L (10-20); BUN (Urea Nitrogen) 37 mg/dL (9.8-20.1); Bilirubin, Total 0.6 mg/dL (0.2-1.2); Calc. Creatinine Clearance 0 mL/min (70-130); Calcium 8.7 mg/dL (7.8-10.44); Carbon Dioxide 21 mmol/L (23-31); Chloride 104 mmol/L (98-107); Estimated GFR-MDRD 23; Globulin 2.4 g/dL (2.4-3.5); Glucose 132 mg/dL (83-110); Potassium 4.7 mmol/L (3.5-5.1); Protein, Total 5.9 g/dL (6.0-8.3); Sodium 140 mmol/L (136-145)
[2018-10-09 14:08] LABS: Clarity Clear (Clear)
[2018-10-09 14:09] LABS: Bilirubin Negative (Negative); Blood, Urine Negative (Negative); Glucose, Urine (Dipstick) Negative (Negative); Leukocyte Negative (Negative); Nitrite Negative (Negative); Protein, Urine (Dipstick) Negative (Neg-Trace); Urobilinogen 0.2 mg/dL (0.2-1.0)
[2018-10-09 15:37] LABS: Base Excess-Venous -3.8 mmol/L (-2.0 to 3.0); Bicarbonate (HCO3v) 21.9 mmol/L (22.0-28.0); CO2 Tension (PvCO2) 41.4 mmHg (40.0-50.0); O2 Tension (PvO2) 27.5 mmHg (35.0-45.0); pH (Venous) 7.331 (7.320-7.430); vO2 Saturation-calc 47.2 % (60.0-85.0)
[2018-10-09 15:38] LABS: Calcium, Ionized 1.06 mmol/L (See Comments:); Chloride 106 mmol/L (98-107); Hemoglobin - Calc 9.8 g/dL (12.0-16.0); Potassium 4.1 mmol/L (3.5-5.1); Sodium 138 mmol/L (138-145); T. Carbon Dioxide 23.2 mmol/L (22.0-28.0)
[2018-10-09 16:26] LABS: Anion Gap 17 mmol/L (10-20); BUN (Urea Nitrogen) 35 mg/dL (9.8-20.1); Calc. Creatinine Clearance 0 mL/min (70-130); Calcium 8.4 mg/dL (7.8-10.44); Carbon Dioxide 22 mmol/L (23-31); Chloride 106 mmol/L (98-107); Estimated GFR-MDRD 24; Glucose 127 mg/dL (83-110); Potassium 4.5 mmol/L (3.5-5.1); Sodium 140 mmol/L (136-145)
[2018-10-09 17:12] LABS: Lactic Acid 4.4 mmol/L (0.5-2.2)
[2018-10-09] MEDS ORDERED: Sodium Chloride 0.9% 10 ML ONE (18:27)
--- NOTE | 2018-10-09 19:02 | RAD ---
PORTABLE CHEST: 10/09/18 An AP portable film at 1315 is compared with the 08/26/18 study. Mild cardiomegaly is unchanged. Here are no convincing findings of CHF, edema, or pleural effusion. There is some chronic change in the lung bases, particularly the right around the hilum. It appears n o different than before. IMPRESSION: Chronic changes but no acute findings. POS: HOME
[2018-10-09 19:18] VITALS: BMI 33.6
[2018-10-09] MEDS ORDERED: traMADol HCl 50 MG TAB PO PRN (19:39)
[2018-10-09] MEDS ORDERED: Acetaminophen 325 MG TAB PO PRN (19:39)
[2018-10-09] MEDS ORDERED: Calcium Carbonate 500 MG ChewTAB PO PRN (19:39)
[2018-10-09] MEDS ORDERED: HYDROcodone/Acetaminophen 10/325 mg Tablet PO PRN (19:39)
[2018-10-09] MEDS ORDERED: Ondansetron ODT 4 MG TAB PO PRN (19:39)
[2018-10-09] MEDS ORDERED: Melatonin 3 MG TAB PO SCH (21:00)
[2018-10-09] MEDS ORDERED: EUC TOP SCH (21:00)
[2018-10-09] MEDS ORDERED: Donepezil HCl 10 MG TAB PO SCH (21:00)
[2018-10-09] MEDS ORDERED: Atorvastatin Calcium 10 MG TAB PO SCH (21:00)
[2018-10-09] MEDS ORDERED: MEN TOP SCH (21:00)
[2018-10-09] MEDS ORDERED: UREA TOP SCH (21:00)
[2018-10-09] MEDS ORDERED: CICLOPIROX TOP SCH (21:00)
[2018-10-09] MEDS ORDERED: Bisacodyl 5 MG TAB PO SCH (21:00)
[2018-10-09] MEDS ORDERED: CAMPH TOP SCH (21:00)
[2018-10-09] MEDS ORDERED: Loperamide HCl 2 MG CAP PO SCH (21:00)
[2018-10-09] MEDS: Pantoprazole 40 MG GRANULES PACKET PO SCH (21:25)
[2018-10-09] MEDS: Oxybutynin 5 MG TAB PO SCH (21:27)
[2018-10-09] MEDS: Carvedilol 12.5 MG TAB PO SCH (21:32)
[2018-10-09] MEDS: Sodium Chloride 0.9% 1,000 ML IV SCH (21:33)
[2018-10-09] MEDS: PROVENTIL INHALER 6.7 G (200 INHALATIONS) INH SCH (21:33)
[2018-10-10] MEDS: Sodium Chloride 0.9% 1,000 ML IV SCH (04:35)
[2018-10-10] MEDS ORDERED: Levothyroxine Sodium 100 MCG TAB PO SCH (06:00)
[2018-10-10] MEDS ORDERED: Levothyroxine Sodium 25 MCG TAB PO SCH (06:00)
[2018-10-10 06:05] LABS: #Basophils 0.1 thou/uL (0.0-0.2); #Eosinphils 0.4 thou/uL (0.0-0.7); #Lymphocytes 2.3 thou/uL (1.20-3.40); #Monocytes 0.7 thou/uL (0.11-0.59); %Basophils 0.8 % (0.0-1.0); %Eosinophils 5.4 % (0.0-10.0); %Lymphocytes 30.2 % (21.0-51.0); %Monocytes 9.5 % (0.0-10.0); %Neutrophils 54.1 % (42.0-75.0); Mean Corpuscular HGB CONC 31.3 g/dL (32.0-36.0); Mean Corpuscular Hemoglobin 30.1 pg (27.0-31.0); Mean Platelet Volume 7.4 fL (7.4-10.4); Platelet Count 144 thou/uL (130-400); RBC Distribution Width 14.9 % (11.5-14.5); Red Blood Cell (RBC) Count 2.98 mill/uL (4.20-5.40); White Blood Cell (WBC) Count 7.5 thou/uL (4.8-10.8)
[2018-10-10 06:12] LABS: Lactic Acid 1.3 mmol/L (0.5-2.2)
[2018-10-10 06:18] LABS: ALT (SGPT) 10 U/L (8-55); AST (SGOT) 10 U/L (5-34); Albumin 3.2 g/dL (3.4-4.8); Alkaline Phosphatase 43 U/L (40-150); Anion Gap 13 mmol/L (10-20); BUN (Urea Nitrogen) 30 mg/dL (9.8-20.1); Bilirubin, Total 0.4 mg/dL (0.2-1.2); Calc. Creatinine Clearance 37 mL/min (70-130); Calcium 8.5 mg/dL (7.8-10.44); Carbon Dioxide 24 mmol/L (23-31); Chloride 107 mmol/L (98-107); Estimated GFR-MDRD 32; Globulin 2.3 g/dL (2.4-3.5); Potassium 3.8 mmol/L (3.5-5.1); Protein, Total 5.5 g/dL (6.0-8.3); Sodium 140 mmol/L (136-145)
[2018-10-10 06:21] LABS: Glucose 55 mg/dL (83-110)
[2018-10-10] MEDS ORDERED: metFORMIN 500 MG TAB PO SCH (08:00)
[2018-10-10] MEDS ORDERED: Lisinopril 10 MG TAB PO SCH (09:00)
[2018-10-10] MEDS ORDERED: LEVOTHYROXINE SODIUM 125 MCG PO SCH (09:00)
[2018-10-10] MEDS ORDERED: Aspirin 81 mg Enteric Coated Tablet PO SCH (09:00)
[2018-10-10] MEDS ORDERED: Folic Acid 1 MG TAB PO SCH (09:00)
[2018-10-10] MEDS ORDERED: Polyethylene Glycol 3350 17 GM Packet PO SCH (09:00)
[2018-10-10] MEDS ORDERED: glipiZIDE 5 MG TAB PO SCH (09:00)
[2018-10-10] MEDS: Oxybutynin 5 MG TAB PO SCH (10:10)
[2018-10-10] MEDS: Carvedilol 12.5 MG TAB PO SCH (10:11)
[2018-10-10] MEDS: Pantoprazole 40 MG GRANULES PACKET PO SCH (10:12)
[2018-10-10 10:26] VITALS: BP 136/74
[2018-10-10] MEDS: PROVENTIL INHALER 6.7 G (200 INHALATIONS) INH SCH (12:38)
[2018-10-10 12:47] VITALS: TEMP 99.2
--- NOTE | 2018-10-10 13:41 | HP ---
OBSERVATION, ADMISSION WITH SAME-DAY DISCHARGE NOTE. ADMISSION DIAGNOSES: 1. Dehydration. 2. Hypotension. 3. Prerenal azotemia. SECONDARY DIAGNOSES: 1. Type-2 diabetes mellitus. 2. Hyperlipidemia. 3. Hypothyroidism. 4. Dementia. 5. Chronic pain syndrome with osteoarthritis. PROCEDURES: On 10/09/2018, chest x-ray showed chronic changes, but no acute findings. HOSPITAL COURSE: This is an 83-year-old female, who presented to the [facility] Emergency Department yesterday afternoon with complaints of progressive weakness and confusion in her home setting. Evaluation in the emergency department showed the patient to be hypotensive and dehydrated with acute renal failure. Intravenous fluids were initiated, and her mental status did improve back to her baseline, although it is noted that she does have some underlying mild dementia. No infectious etiology was noted in the emergency department setting, although her labs did reveal a mild leukocytosis with white blood cell count at 13.7 without a left shift and an elevated lactic acid level of 4.4. Secondary to these findings, the patient's advanced age, need for continued intravenous fluids and follow up of her renal function, she was admitted under observation status yesterday evening. Lisinopril was held due to hypotension and Metformin held due to acute kidney injury. As of this morning, the patient feels to be completely back at her baseline. One of her daughters is at bedside during the time of exam. Her lab work has normalized with notably no leukocytosis and a lactic acid level of 1.3; her renal function has improved near her baseline, which is chronic kidney disease stage 3. The patient has no concerns at this time and understands the need to improve her hydration at home. Both the patient and her daughter are amenable for her to discharge home, where she has family members to take care of her daily. PAST MEDICAL HISTORY: Includes; 1. Type-2 diabetes mellitus. 2. Coronary artery disease. 3. Sinus node dysfunction, status post pacemaker. 4. Hypothyroidism. 5. Hyperlipidemia. 6. Hypertension. 7. Degenerative joint disease. 8. Chronic low back pain. 9. Recurrent falls. 10. Dementia. PAST SURGICAL HISTORY: 1. Back surgeries including her thoracic and lumbar spine. 2. Thyroidectomy. 3. Hysterectomy. 4. Right knee replacement. 5. Left knee replacement. 6. Right lung thoracotomy from benign tumor resection. 7. Cholecystectomy. ALLERGIES: FLUOROQUINOLONES AND PENICILLIN. SOCIAL HISTORY: She lives alone in [place] with her daughter next door and has two other daughters, who also help look after her. Denies tobacco, alcohol, or illicit drug use. CURRENT MEDICATIONS: 1. Aspirin 81 mg p.o. daily. 2. Atorvastatin 40 mg p.o. at bedtime. 3. Carvedilol 12.5 mg p.o. b.i.d. 4. Cholecalciferol 5000 units p.o. daily. 5. Vitamin B12 of 1000 mcg p.o. daily. 6. Donepezil 10 mg p.o. at bedtime. 7. Folic acid 1 mg p.o. daily. 8. Glipizide 5 mg p.o. daily. 9. [place] 10/325 p.o. b.i.d. 10. Levothyroxine 100 mcg p.o. daily. 11. Lisinopril 10 mg p.o. daily. 12. Melatonin 9 mg p.o. at bedtime. 13. Methotrexate 12.5 mg every 7 days. 14. Oxybutynin 5 mg p.o. b.i.d. 15. Protonix 40 mg p.o. daily. 16. Prednisone 5 mg p.o. daily p.r.n. 17. Tramadol 50 mg p.o. q.8 hours p.r.n. LABORATORY DATA: White blood cell count is 7.5, hemoglobin is 9.0, hematocrit is 28.6, platelets are 144. Sodium is 140, potassium is 3.8, BUN is 30, creatinine is 1.54. Lactic acid is 1.3. REVIEW OF SYSTEMS: GENERAL: Denies fever. EARS, NOSE, AND THROAT: Denies sore throat, nasal drainage, or congestion. CARDIOVASCULAR: Denies chest pain or palpitation. RESPIRATORY: Denies dyspnea or cough. GASTROINTESTINAL: Denies abdominal pain, nausea, vomiting, or diarrhea. MUSCULOSKELETAL: She has chronic joint pain. DERM: Denies rash NEUROLOGIC: Denies headache. PHYSICAL EXAMINATION: VITAL SIGNS: Temperature is 97.7, pulse is 77, blood pressure is 124/60, respiratory rate is 20, oxygen 97% on room air. ASSESSMENT AND PLAN: 1. Chronic kidney disease stage 3. The patient has been encouraged to remain well hydrated in her home setting. 2. Dehydration. This is resolved with intravenous fluids received yesterday afternoon, overnight, and through this morning. 3. Hypotension. The patient's lisinopril was held during her stay. Her hypotensive state has resolved with improved hydration and intravascular volume. She will resume her usual blood pressure medications at home. 4. Prerenal azotemia. Resolved with intravenous fluids. 5. Type-2 diabetes mellitus. The patient will resume her usual diabetic medications. 6. Hyperlipidemia. Resume usual medications. 7. Hypothyroidism. Resume usual levothyroxine. 8. Dementia. The patient will resume care via her family members, which include daughter, who works for [employer] agency and another daughter, who is an SALES PROCESS MANAGER. DISPOSITION: The patient will discharge to a home setting at this time, both she and her daughter are in agreement with this. She may follow up with her primary care provider, Dr. Zakiya Nash, next week. DISCHARGE MEDICATIONS: The patient is to resume all her usual medications. Job ID: [id number] MTDD
[2018-10-16] MEDS ORDERED: (Etanercept [Enbrel] 50 MG) SC SCH (09:00)
[2018-10-16] MEDS ORDERED: METHOTREXATE 12.5 MG SQ SCH (09:00)
[2018-10-24] MEDS ORDERED: metFORMIN 500 MG TAB PO SCH (08:00)
== END 2018-10-10 13:35 | disposition home or self-care (01) ==
LOC: BURERS 12:48 → BURMED 17:45
PROVIDERS: ADMIT Family Medicine; ATTEND Family Medicine
DX: E86.0 Dehydration (principal); I95.9 Hypotension, unspecified; E78.5 Hyperlipidemia, unspecified; F03.90 Unspecified dementia, unspecified severity, without behavioral disturbance, psychotic disturbance, mood disturbance, and anxiety; G89.4 Chronic pain syndrome; M19.90 Unspecified osteoarthritis, unspecified site; I25.10 Atherosclerotic heart disease of native coronary artery without angina pectoris; E89.0 Postprocedural hypothyroidism; I13.0 Hypertensive heart and chronic kidney disease with heart failure and stage 1 through stage 4 chronic kidney disease, or unspecified chronic kidney disease; E11.22 Type 2 diabetes mellitus with diabetic chronic kidney disease; N18.3 Chronic kidney disease, stage 3 (moderate); I50.9 Heart failure, unspecified; N17.9 Acute kidney failure, unspecified; K21.9 Gastro-esophageal reflux disease without esophagitis; Z79.82 Long term (current) use of aspirin; Z79.84 Long term (current) use of oral hypoglycemic drugs; Z79.899 Other long term (current) drug therapy; Z88.0 Allergy status to penicillin; Z95.1 Presence of aortocoronary bypass graft
CPT/HCPCS: 36415; 51702; 71045; 80053; 81003; 82330; 82803; 83605; 84484; 85025; 87040; 87086; 87149; 87804; 93005; 96360; 96361; G0378

== ENCOUNTER 2018-11-07 17:41 | Emergency (ER) | payer MEDICARE, OTHER ==
[2018-11-07 19:37] LABS: #Basophils 0.1 thou/uL (0.0-0.2); #Eosinphils 0.3 thou/uL (0.0-0.7); #Lymphocytes 1.8 thou/uL (1.20-3.40); #Monocytes 0.9 thou/uL (0.11-0.59); #Neutrophils 6.7 thou/uL (1.40-6.50); %Basophils 0.8 % (0.0-1.0); %Eosinophils 3.3 % (0.0-10.0); %Lymphocytes 18.5 % (21.0-51.0); %Monocytes 9.2 % (0.0-10.0); %Neutrophils 68.2 % (42.0-75.0); Hemoglobin 10.8 g/dL (12.0-16.0); Mean Corpuscular HGB CONC 32.1 g/dL (32.0-36.0); Mean Corpuscular Hemoglobin 29.2 pg (27.0-31.0); Platelet Count 214 thou/uL (130-400); RBC Distribution Width 13.8 % (11.5-14.5); Red Blood Cell (RBC) Count 3.71 mill/uL (4.20-5.40); White Blood Cell (WBC) Count 9.9 thou/uL (4.8-10.8)
[2018-11-07 19:49] LABS: ALT (SGPT) 13 U/L (8-55); AST (SGOT) 14 U/L (5-34); Albumin 4.2 g/dL (3.4-4.8); Alkaline Phosphatase 57 U/L (40-150); Anion Gap 18 mmol/L (10-20); BUN (Urea Nitrogen) 31 mg/dL (9.8-20.1); Bilirubin, Total 0.4 mg/dL (0.2-1.2); Calc. Creatinine Clearance 0 mL/min (70-130); Calcium 10.1 mg/dL (7.8-10.44); Carbon Dioxide 27 mmol/L (23-31); Chloride 94 mmol/L (98-107); Estimated GFR-MDRD 29; Globulin 3.2 g/dL (2.4-3.5); Glucose 109 mg/dL (83-110); Potassium 4.4 mmol/L (3.5-5.1); Protein, Total 7.4 g/dL (6.0-8.3); Sodium 135 mmol/L (136-145)
[2018-11-07] MEDS ORDERED: Acetaminophen 325 MG TAB ONE (19:52)
[2018-11-07 20:07] LABS: Bilirubin Negative (Negative); Blood, Urine Negative (Negative); Clarity Hazy (Clear); Glucose, Urine (Dipstick) Negative (Negative); Leukocyte Negative (Negative); Nitrite Negative (Negative); Protein, Urine (Dipstick) Negative (Neg-Trace); Specific Gravity, Urine 1.007 (1.002-1.036); Urobilinogen 0.2 mg/dL (0.2-1.0)
--- NOTE | 2018-11-07 23:43 | RAD ---
PORTABLE CHEST: 11/07/18 An AP portable film at 2010 is compared with an 10/09/18 study. Cardiomegaly is about the same as before. The cardiac pacer remains in place. The vessels do not appe ar congested. There is slight increased haziness in the right base. The left base is difficult to tj luate on this portable study. At this point, I cannot completely rule out basilar infiltrates. If the patient is able at some point to have a PA and lateral view, that might be helpful. IMPRESSION: Equivocal basilar haziness. POS: HOME
== END 2018-11-07 23:29 | disposition home or self-care (01) ==
LOC: BURERS 18:48
DX: E86.0 Dehydration (principal); E11.9 Type 2 diabetes mellitus without complications; E03.9 Hypothyroidism, unspecified; K21.9 Gastro-esophageal reflux disease without esophagitis; E78.5 Hyperlipidemia, unspecified; I11.0 Hypertensive heart disease with heart failure; I50.9 Heart failure, unspecified
CPT/HCPCS: 36415; 71045; 80053; 81003; 83605; 83880; 85025; 87081; 87430; 87804; 96360; 96361

== ENCOUNTER 2018-11-23 10:43 | Emergency (ER) | payer MEDICARE, OTHER ==
[2018-11-23 10:59] LABS: Bilirubin Negative (Negative); Blood, Urine Negative (Negative); Clarity Hazy (Clear); Glucose, Urine (Dipstick) Negative (Negative); Leukocyte Small (Negative); Nitrite Positive (Negative); Protein, Urine (Dipstick) Negative (Neg-Trace); Specific Gravity, Urine 1.004 (1.002-1.036); Urobilinogen 0.2 mg/dL (0.2-1.0); pH, Urine 5.5 (5.0-9.0)
[2018-11-23 11:00] LABS: Bacteria/HPF 2+ HPF (None Seen); RBC/HPF None Seen HPF (0-3); Squamous Epithelial 0-3 HPF (0-3)
[2018-11-23] MEDS ORDERED: Sulfameth/Trimethoprim DS 800-160mg TAB ONE (11:30)
[2018-11-23] MEDS ORDERED: Phenazopyridine HCl 97.5 MG TABLET ONE (11:30)
--- NOTE | 2018-11-23 19:14 | RAD ---
RIGHT SHOULDER THREE VIEWS: 11/23/2018 FINDINGS: No fracture, dislocation, or AC joint widening is seen. There is no widening of the AC joint or offs et. The scapula appears intact. Some cortical thickening and irregularity of the proximal humeral s haft is probably longstanding and not currently significant. IMPRESSION: No acute findings. POS: HOME
== END 2018-11-23 12:03 | disposition home or self-care (01) ==
LOC: BURERS 10:43
DX: N39.0 Urinary tract infection, site not specified (principal); M25.511 Pain in right shoulder; I11.0 Hypertensive heart disease with heart failure; I50.9 Heart failure, unspecified; E11.9 Type 2 diabetes mellitus without complications; E03.9 Hypothyroidism, unspecified; K21.9 Gastro-esophageal reflux disease without esophagitis; E78.5 Hyperlipidemia, unspecified; M19.90 Unspecified osteoarthritis, unspecified site; M06.9 Rheumatoid arthritis, unspecified; Z79.899 Other long term (current) drug therapy; Z79.84 Long term (current) use of oral hypoglycemic drugs; W19.XXXA Unspecified fall, initial encounter
CPT/HCPCS: 51701; 81003; 81015; A4353

== ENCOUNTER 2019-04-15 17:24 | Inpatient (IN) | payer MEDICARE, OTHER ==
[2019-04-15 18:05] LABS: #Basophils 0.1 thou/uL (0.0-0.2); #Eosinphils 0.2 thou/uL (0.0-0.7); #Lymphocytes 1.4 thou/uL (1.20-3.40); #Monocytes 0.7 thou/uL (0.11-0.59); #Neutrophils 6.3 thou/uL (1.40-6.50); %Basophils 0.8 % (0.0-1.0); %Eosinophils 2.2 % (0.0-10.0); %Lymphocytes 16.3 % (21.0-51.0); %Monocytes 7.6 % (0.0-10.0); %Neutrophils 73.1 % (42.0-75.0); Hemoglobin 10.5 g/dL (12.0-16.0); Mean Corpuscular HGB CONC 31.1 g/dL (32.0-36.0); Mean Corpuscular Hemoglobin 27.3 pg (27.0-31.0); Mean Corpuscular Volume 87.7 fL (78.0-98.0); Mean Platelet Volume 7.3 fL (7.4-10.4); Platelet Count 189 thou/uL (130-400); RBC Distribution Width 14.4 % (11.5-14.5); Red Blood Cell (RBC) Count 3.85 mill/uL (4.20-5.40); White Blood Cell (WBC) Count 8.6 thou/uL (4.8-10.8)
[2019-04-15 18:21] LABS: ALT (SGPT) 9 U/L (8-55); AST (SGOT) 7 U/L (5-34); Albumin 3.4 g/dL (3.4-4.8); Alkaline Phosphatase 53 U/L (40-110); Anion Gap 17 mmol/L (10-20); BUN (Urea Nitrogen) 29 mg/dL (9.8-20.1); Bilirubin, Total 0.4 mg/dL (0.2-1.2); Calc. Creatinine Clearance 0 mL/min (70-130); Calcium 8.7 mg/dL (7.8-10.44); Carbon Dioxide 24 mmol/L (23-31); Chloride 100 mmol/L (98-107); Estimated GFR-MDRD 23; Glucose 174 mg/dL (83-110); Potassium 3.8 mmol/L (3.5-5.1); Protein, Total 6.4 g/dL (6.0-8.3); Sodium 137 mmol/L (136-145)
[2019-04-15 18:38] LABS: Bilirubin Negative (Negative); Blood, Urine Negative (Negative); Clarity Slightly Cloudy (Clear); Glucose, Urine (Dipstick) Negative (Negative); Leukocyte Negative (Negative); Nitrite Positive (Negative); Protein, Urine (Dipstick) Negative (Neg-Trace); Urobilinogen 0.2 mg/dL (Less than 2)
[2019-04-15 18:44] LABS: Bacteria/HPF 2+ HPF (None Seen); RBC/HPF None Seen HPF (0-3); Renal Epithelial None Seen HPF (None Seen); Squamous Epithelial None Seen HPF (0-3); Transitional Epithelial None Seen HPF (None Seen); WBC/HPF 0-3 HPF (0-3); Yeast-Budding None Seen HPF (None Seen)
[2019-04-15 18:45] LABS: Broad Cast None Seen LPF (None Seen); Calcium Oxalate Crystals None Seen HPF (None Seen); Cellular Cast None Seen LPF (None Seen); Epithelial Cast None Seen LPF (None Seen); Fatty Cast None Seen LPF (None Seen); Mucous/LPF None Seen LPF (<2+); Other Casts None Seen LPF (None Seen); Oval Fat Bodies/HPF None Seen HPF (None Seen); Red Blood Cell Cast None Seen LPF (None Seen); Sperm/HPF None Seen HPF (None Seen); Trichomonas/HPF None Seen HPF (None Seen); Triple Phosphate Crystal None Seen HPF (None Seen); Unclassified Crystals None Seen HPF (None Seen); Waxy Cast None Seen LPF (None Seen); White Blood Cell Cast None Seen LPF (None Seen); Yeast-Hyphae None Seen HPF (None Seen)
[2019-04-15] MEDS ORDERED: Meropenem 1 GM in Sodium Chloride 0.9% 100 ML IVPB ONE (18:45)
[2019-04-15] MEDS ORDERED: cefTRIAXone\\ROCEPHIN 2 GM VIAL ONE (18:53)
[2019-04-15] MEDS ORDERED: Sterile Water 0 ML ONE ×2 (18:54)
[2019-04-15] MEDS ORDERED: Acetaminophen 325 MG TAB ONE (19:36)
--- NOTE | 2019-04-15 21:02 | RAD ---
PORTABLE CHEST: 04/15/19 An AP portable film at 1738 is compared with a 02/10/19 study at [facility]. The right lung seems clear. It is difficult to assess the right lower lung in this patient. I cannot confidently rule in or out an infiltrate here. She is turned slightly. The cardiac pacer remains in p lace. There is no vascular congestion or edema. IMPRESSION: Minimal cardiomegaly, unchanged from before. Cannot accurately assess the left lung base for presence or absence of pneumonia. If symptoms continue, a repeat chest x-ray to show this area better may be needed. Code T POS: HOME
[2019-04-15 21:23] VITALS: BMI 29.2
[2019-04-15] MEDS ORDERED: Ondansetron PF 4 MG/2 ML Vial IVP PRN (21:43)
[2019-04-15] MEDS ORDERED: Ondansetron ODT 4 MG TAB SL PRN (21:43)
[2019-04-15] MEDS ORDERED: Acetaminophen 325 MG TAB PO PRN (21:43)
[2019-04-15] MEDS ORDERED: Carvedilol 12.5 MG TAB PO SCH (22:15)
[2019-04-15] MEDS ORDERED: Atorvastatin Calcium 40 MG TAB PO SCH (22:15)
[2019-04-15] MEDS ORDERED: Oxybutynin 5 MG TAB PO SCH (22:15)
[2019-04-15] MEDS ORDERED: Donepezil HCl 10 MG TAB PO SCH (22:15)
[2019-04-15] MEDS ORDERED: Melatonin 3 MG TAB PO SCH (22:15)
[2019-04-15] MEDS ORDERED: Loperamide HCl 2 MG CAP PO SCH (22:15)
[2019-04-16] MEDS: cefTRIAXone\\ROCEPHIN 1 GM in Sodium Chloride 0.9% 100 ML IVPB SCH ×3 (04:00→21:09)
[2019-04-16] MEDS ORDERED: Levothyroxine Sodium 25 MCG TAB PO SCH (06:00)
[2019-04-16] MEDS ORDERED: Levothyroxine Sodium 100 MCG TAB PO SCH (06:00)
[2019-04-16] MEDS ORDERED: HYDROcodone/Acetaminophen 10/325 mg Tablet PO PRN (09:48)
[2019-04-16] MEDS ORDERED: Ventolin HFA Inhaler 60 PUFF INHALER INH PRN (09:48)
[2019-04-16] MEDS ORDERED: Calcium Carbonate 500 MG ChewTAB PO PRN (09:48)
[2019-04-16] MEDS ORDERED: Acetaminophen 325 MG TAB PO PRN (09:48)
[2019-04-16] MEDS ORDERED: Ondansetron ODT 4 MG TAB PO PRN (09:48)
[2019-04-16] MEDS ORDERED: traMADol HCl 50 MG TAB PO PRN (09:48)
[2019-04-16] MEDS: Albuterol Sulfate 2.5 mg/3 ml Neb NEB SCH ×2 (13:56→17:48)
[2019-04-16] MEDS: Sodium Chloride 0.9% 1,000 ML IV SCH (16:11)
[2019-04-16 19:15] LABS: Vancomycin, Random 11.9 ug/mL (See Comment)
[2019-04-16] MEDS ORDERED: FLU VACC TS2019-20(65YR UP)/PF 180 MCG/0.5 ML SYRINGE IM ONE (21:00)
[2019-04-16] MEDS: Oxybutynin 5 MG TAB PO SCH (21:13)
[2019-04-16] MEDS: Atorvastatin Calcium 10 MG TAB PO SCH (21:13)
[2019-04-16] MEDS: Pantoprazole 40 MG GRANULES PACKET PO SCH (21:13)
[2019-04-16] MEDS: Bisacodyl 5 MG TAB PO SCH (21:13)
[2019-04-16] MEDS: Floranex Packet PO SCH (21:13)
[2019-04-16] MEDS: Donepezil HCl 10 MG TAB PO SCH (21:14)
[2019-04-16] MEDS: Melatonin 3 MG TAB PO SCH (21:14)
[2019-04-16] MEDS: Carvedilol 12.5 MG TAB PO SCH (21:14)
[2019-04-16] MEDS: Loperamide HCl 2 MG CAP PO SCH (21:14)
[2019-04-16] MEDS ORDERED: Dextrose 50% Abboject 50 ML SYRINGE IVP PRN (21:34)
[2019-04-16] MEDS ORDERED: Dextrose 5% in Water 1,000 ML IV PRN (21:34)
[2019-04-16] MEDS ORDERED: HumaLOG 300 UNITS/3 ML VIAL SC PRN (21:34)
[2019-04-16] MEDS: Vancomycin HCl 750 MG in Sodium Chloride 0.9% 250 ML 250 ML IVPB SCH (21:51)
[2019-04-17] MEDS: Albuterol Sulfate 2.5 mg/3 ml Neb NEB SCH ×4 (00:20→18:28)
[2019-04-17] MEDS: Sodium Chloride 0.9% 1,000 ML IV SCH ×2 (00:24→09:23)
[2019-04-17] MEDS: cefTRIAXone\\ROCEPHIN 1 GM in Sodium Chloride 0.9% 100 ML IVPB SCH ×2 (04:02→11:53)
[2019-04-17] MEDS: Levothyroxine Sodium 25 MCG TAB PO SCH (05:50)
[2019-04-17] MEDS: Levothyroxine Sodium 100 MCG TAB PO SCH (05:50)
[2019-04-17] MEDS: glipiZIDE 5 MG TAB PO SCH (08:02)
[2019-04-17] MEDS: Folic Acid 1 MG TAB PO SCH (08:07)
[2019-04-17] MEDS: Lisinopril 10 MG TAB PO SCH (08:07)
[2019-04-17] MEDS: Oxybutynin 5 MG TAB PO SCH (08:08)
[2019-04-17] MEDS: Carvedilol 12.5 MG TAB PO SCH ×2 (08:08→22:30)
[2019-04-17] MEDS: Pantoprazole 40 MG GRANULES PACKET PO SCH ×2 (08:09→22:28)
[2019-04-17] MEDS: Cyanocobalamin (Vitamin B-12) 1,000 MCG TAB PO SCH (08:09)
[2019-04-17] MEDS: Aspirin 81 mg Enteric Coated Tablet PO SCH (08:09)
[2019-04-17] MEDS: Saccharomyces boulardii 250 MG CAP PO SCH (08:09)
[2019-04-17] MEDS: Polyethylene Glycol 3350 17 GM Packet PO SCH (08:09)
[2019-04-17] MEDS ORDERED: LEVOTHYROXINE SODIUM 125 MCG PO SCH (09:00)
[2019-04-17] MEDS: HumaLOG 300 UNITS/3 ML VIAL SC PRN (12:52)
[2019-04-17 15:17] LABS: #Eosinphils 0.3 thou/uL (0.0-0.7); #Lymphocytes 1.2 thou/uL (1.20-3.40); #Monocytes 0.4 thou/uL (0.11-0.59); #Neutrophils 3.9 thou/uL (1.40-6.50); %Basophils 0.7 % (0.0-1.0); %Eosinophils 4.7 % (0.0-10.0); %Lymphocytes 20.6 % (21.0-51.0); %Monocytes 7.2 % (0.0-10.0); %Neutrophils 66.8 % (42.0-75.0); Anion Gap 14 mmol/L (10-20); BUN (Urea Nitrogen) 13 mg/dL (9.8-20.1); Calc. Creatinine Clearance 41 mL/min (70-130); Calcium 8.2 mg/dL (7.8-10.44); Carbon Dioxide 23 mmol/L (23-31); Chloride 108 mmol/L (98-107); Estimated GFR-MDRD 40; Glucose 165 mg/dL (83-110); Hemoglobin 9.3 g/dL (12.0-16.0); Mean Corpuscular HGB CONC 32.7 g/dL (32.0-36.0); Mean Corpuscular Hemoglobin 27.8 pg (27.0-31.0); Mean Platelet Volume 6.8 fL (7.4-10.4); Platelet Count 162 thou/uL (130-400); Potassium 3.8 mmol/L (3.5-5.1); RBC Distribution Width 14.3 % (11.5-14.5); Red Blood Cell (RBC) Count 3.35 mill/uL (4.20-5.40); Sodium 141 mmol/L (136-145); White Blood Cell (WBC) Count 5.9 thou/uL (4.8-10.8)
[2019-04-17 19:19] LABS: Vancomycin, Trough 13.8 ug/mL
[2019-04-17] MEDS: Vancomycin HCl 750 MG in Sodium Chloride 0.9% 250 ML 250 ML IVPB SCH (19:36)
[2019-04-17] MEDS ORDERED: traMADol HCl 50 MG TAB PO PRN ×2 (19:51→19:55)
[2019-04-17] MEDS: Melatonin 3 MG TAB PO SCH (22:28)
[2019-04-17] MEDS: Atorvastatin Calcium 10 MG TAB PO SCH (22:28)
[2019-04-17] MEDS: Floranex Packet PO SCH (22:28)
[2019-04-17] MEDS: Loperamide HCl 2 MG CAP PO SCH (22:29)
[2019-04-17] MEDS: Bisacodyl 5 MG TAB PO SCH (22:29)
[2019-04-17] MEDS: Donepezil HCl 10 MG TAB PO SCH (22:30)
[2019-04-17] MEDS: Indomethacin 25 mg Capsule PO SCH (22:31)
[2019-04-18] MEDS: cefTRIAXone\\ROCEPHIN 1 GM in Sodium Chloride 0.9% 100 ML IVPB SCH ×2 (00:29→12:43)
[2019-04-18] MEDS: Albuterol Sulfate 2.5 mg/3 ml Neb NEB SCH ×4 (00:30→18:13)
[2019-04-18] MEDS: HYDROcodone/Acetaminophen 5/325 mg Tablet PO PRN ×3 (02:13→22:14)
[2019-04-18 05:52] LABS: Anion Gap 14 mmol/L (10-20); BUN (Urea Nitrogen) 10 mg/dL (9.8-20.1); Calc. Creatinine Clearance 51 mL/min (70-130); Calcium 8.3 mg/dL (7.8-10.44); Carbon Dioxide 24 mmol/L (23-31); Chloride 105 mmol/L (98-107); Estimated GFR-MDRD 52; Glucose 123 mg/dL (83-110); Potassium 3.6 mmol/L (3.5-5.1); Sodium 139 mmol/L (136-145); Uric Acid 6.8 mg/dL (2.6-6.0)
[2019-04-18] MEDS: Levothyroxine Sodium 25 MCG TAB PO SCH (05:58)
[2019-04-18] MEDS: Levothyroxine Sodium 100 MCG TAB PO SCH (05:58)
[2019-04-18 06:05] LABS: Hemoglobin 8.8 g/dL (12.0-16.0); Mean Corpuscular Hemoglobin 27.1 pg (27.0-31.0); Mean Corpuscular Volume 85.7 fL (78.0-98.0); Red Blood Cell (RBC) Count 3.25 mill/uL (4.20-5.40); White Blood Cell (WBC) Count 6.9 thou/uL (4.8-10.8)
[2019-04-18 06:06] LABS: #Neutrophils 4.2 thou/uL (1.40-6.50); %Basophils 0.8 % (0.0-1.0); %Eosinophils 4.9 % (0.0-10.0); %Lymphocytes 25.4 % (21.0-51.0); %Monocytes 8.6 % (0.0-10.0); %Neutrophils 60.3 % (42.0-75.0); Mean Corpuscular HGB CONC 31.6 g/dL (32.0-36.0); Mean Platelet Volume 6.1 fL (7.4-10.4); Platelet Count 170 thou/uL (130-400); RBC Distribution Width 14.2 % (11.5-14.5)
[2019-04-18 06:07] LABS: #Basophils 0.1 thou/uL (0.0-0.2); #Eosinphils 0.3 thou/uL (0.0-0.7); #Lymphocytes 1.8 thou/uL (1.20-3.40); #Monocytes 0.6 thou/uL (0.11-0.59)
[2019-04-18] MEDS: glipiZIDE 5 MG TAB PO SCH (09:21)
[2019-04-18] MEDS: Polyethylene Glycol 3350 17 GM Packet PO SCH (09:21)
[2019-04-18] MEDS: Saccharomyces boulardii 250 MG CAP PO SCH (09:21)
[2019-04-18] MEDS: Pantoprazole 40 MG GRANULES PACKET PO SCH ×2 (09:22→22:03)
[2019-04-18] MEDS: Cyanocobalamin (Vitamin B-12) 1,000 MCG TAB PO SCH (09:22)
[2019-04-18] MEDS: Aspirin 81 mg Enteric Coated Tablet PO SCH (09:22)
[2019-04-18] MEDS: Lisinopril 10 MG TAB PO SCH (09:22)
[2019-04-18] MEDS: Carvedilol 12.5 MG TAB PO SCH ×2 (09:23→22:05)
[2019-04-18] MEDS: Indomethacin 25 mg Capsule PO SCH ×3 (09:23→22:05)
[2019-04-18] MEDS: Folic Acid 1 MG TAB PO SCH (09:23)
[2019-04-18] MEDS: HumaLOG 300 UNITS/3 ML VIAL SC PRN ×2 (12:54→17:28)
[2019-04-18] MEDS: Melatonin 3 MG TAB PO SCH (22:03)
[2019-04-18] MEDS: Loperamide HCl 2 MG CAP PO SCH (22:03)
[2019-04-18] MEDS: Floranex Packet PO SCH (22:03)
[2019-04-18] MEDS: Donepezil HCl 10 MG TAB PO SCH (22:03)
[2019-04-18] MEDS: Atorvastatin Calcium 10 MG TAB PO SCH (22:04)
[2019-04-18] MEDS: Bisacodyl 5 MG TAB PO SCH (22:04)
[2019-04-19] MEDS: cefTRIAXone\\ROCEPHIN 1 GM in Sodium Chloride 0.9% 100 ML IVPB SCH ×2 (00:14→12:10)
[2019-04-19] MEDS: Albuterol Sulfate 2.5 mg/3 ml Neb NEB SCH ×3 (00:15→12:10)
[2019-04-19 04:36] LABS: #Basophils 0.1 thou/uL (0.0-0.2); #Eosinphils 0.3 thou/uL (0.0-0.7); #Lymphocytes 1.6 thou/uL (1.20-3.40); #Monocytes 0.5 thou/uL (0.11-0.59); #Neutrophils 3.6 thou/uL (1.40-6.50); %Eosinophils 5.5 % (0.0-10.0); %Lymphocytes 26.6 % (21.0-51.0); %Monocytes 8.5 % (0.0-10.0); %Neutrophils 58.4 % (42.0-75.0); Mean Corpuscular HGB CONC 32.2 g/dL (32.0-36.0); Mean Corpuscular Hemoglobin 27.4 pg (27.0-31.0); Mean Platelet Volume 6.8 fL (7.4-10.4); Platelet Count 191 thou/uL (130-400); RBC Distribution Width 14.2 % (11.5-14.5); Red Blood Cell (RBC) Count 3.27 mill/uL (4.20-5.40); White Blood Cell (WBC) Count 6.1 thou/uL (4.8-10.8)
[2019-04-19 04:46] LABS: Anion Gap 14 mmol/L (10-20); BUN (Urea Nitrogen) 13 mg/dL (9.8-20.1); Calc. Creatinine Clearance 43 mL/min (70-130); Calcium 8.5 mg/dL (7.8-10.44); Carbon Dioxide 24 mmol/L (23-31); Chloride 104 mmol/L (98-107); Estimated GFR-MDRD 43; Glucose 127 mg/dL (83-110); Potassium 3.8 mmol/L (3.5-5.1); Sodium 138 mmol/L (136-145)
[2019-04-19] MEDS: Levothyroxine Sodium 100 MCG TAB PO SCH (06:20)
[2019-04-19] MEDS: Levothyroxine Sodium 25 MCG TAB PO SCH (06:20)
[2019-04-19 06:45] VITALS: BP 111/57; TEMP 98.4
[2019-04-19] MEDS: Aspirin 81 mg Enteric Coated Tablet PO SCH (08:19)
[2019-04-19] MEDS: glipiZIDE 5 MG TAB PO SCH (08:19)
[2019-04-19] MEDS: Pantoprazole 40 MG GRANULES PACKET PO SCH (08:19)
[2019-04-19] MEDS: Cyanocobalamin (Vitamin B-12) 1,000 MCG TAB PO SCH (08:19)
[2019-04-19] MEDS: Polyethylene Glycol 3350 17 GM Packet PO SCH (08:19)
[2019-04-19] MEDS: Lisinopril 10 MG TAB PO SCH (08:20)
[2019-04-19] MEDS: Carvedilol 12.5 MG TAB PO SCH (08:20)
[2019-04-19] MEDS: Folic Acid 1 MG TAB PO SCH (08:20)
[2019-04-19] MEDS: Indomethacin 25 mg Capsule PO SCH (08:21)
[2019-04-19] MEDS: HYDROcodone/Acetaminophen 5/325 mg Tablet PO PRN (08:28)
[2019-04-19] MEDS ORDERED: Promethazine 25 MG TAB PO PRN (11:58)
[2019-04-19] MEDS ORDERED: Promethazine HCl 25 MG SUPP PR PRN (11:59)
[2019-04-19] MEDS: HumaLOG 300 UNITS/3 ML VIAL SC PRN (12:09)
== END 2019-04-19 14:54 | disposition swing bed (61) | DRG 872 ==
LOC: BURERS 17:24 → BURMED 20:04
PROVIDERS: ADMIT Family Medicine; ATTEND Family Medicine
DX: A41.9 Sepsis, unspecified organism (principal); N17.9 Acute kidney failure, unspecified; N39.0 Urinary tract infection, site not specified; I49.5 Sick sinus syndrome; G30.9 Alzheimer's disease, unspecified; F02.80 Dementia in other diseases classified elsewhere, unspecified severity, without behavioral disturbance, psychotic disturbance, mood disturbance, and anxiety; N18.3 Chronic kidney disease, stage 3 (moderate); E11.22 Type 2 diabetes mellitus with diabetic chronic kidney disease; E66.01 Morbid (severe) obesity due to excess calories; I12.9 Hypertensive chronic kidney disease with stage 1 through stage 4 chronic kidney disease, or unspecified chronic kidney disease; E03.9 Hypothyroidism, unspecified; B96.20 Unspecified Escherichia coli [E. coli] as the cause of diseases classified elsewhere; Z66 Do not resuscitate; E78.5 Hyperlipidemia, unspecified; M19.91 Primary osteoarthritis, unspecified site; M54.5 Low back pain; G89.29 Other chronic pain; K21.9 Gastro-esophageal reflux disease without esophagitis; Z96.659 Presence of unspecified artificial knee joint; Z90.89 Acquired absence of other organs; Z90.710 Acquired absence of both cervix and uterus; Z95.0 Presence of cardiac pacemaker; Z90.49 Acquired absence of other specified parts of digestive tract
CPT/HCPCS: 36415; 36416; 51701; 71045; 80048; 80053; 80202; 81003; 81015; 83605; 84550; 85025; 87040; 87077; 87086; 87186; 90471; 90662; 94760; 96361; 96365; 96367; G0008; J0696; J3370; J3490; J7050; J7611; Q0169

== ENCOUNTER 2019-04-19 14:54 | Inpatient (IN) | payer MEDICARE, OTHER ==
[2019-04-19] MEDS ORDERED: Loperamide HCl 2 MG CAP PO PRN (16:12)
[2019-04-19] MEDS ORDERED: Calcium Carbonate 500 MG ChewTAB PO PRN (16:15)
[2019-04-19] MEDS ORDERED: Dextrose 5% in Water 1,000 ML IV PRN (16:16)
[2019-04-19] MEDS ORDERED: Dextrose 50% Abboject 50 ML SYRINGE IVP PRN (16:16)
[2019-04-19] MEDS ORDERED: Promethazine 25 MG TAB PO PRN (16:18)
[2019-04-19] MEDS ORDERED: Promethazine HCl 25 MG SUPP PR PRN (16:18)
[2019-04-19] MEDS ORDERED: Ventolin HFA Inhaler 60 PUFF INHALER INH PRN (16:21)
[2019-04-19] MEDS: HumaLOG 300 UNITS/3 ML VIAL SC PRN (18:04)
[2019-04-19] MEDS: Albuterol Sulfate 2.5 mg/3 ml Neb NEB SCH (18:05)
[2019-04-19] MEDS: Donepezil HCl 10 MG TAB PO SCH (20:59)
[2019-04-19] MEDS: Bisacodyl 5 MG TAB PO SCH (20:59)
[2019-04-19] MEDS: Pantoprazole 40 MG GRANULES PACKET PO SCH (20:59)
[2019-04-19] MEDS: Floranex Packet PO SCH (20:59)
[2019-04-19] MEDS: Indomethacin 25 mg Capsule PO SCH (20:59)
[2019-04-19] MEDS: Carvedilol 12.5 MG TAB PO SCH (21:00)
[2019-04-19] MEDS: Atorvastatin Calcium 40 MG TAB PO SCH (21:00)
[2019-04-19] MEDS: Loperamide HCl 2 MG CAP PO SCH (21:00)
[2019-04-19] MEDS: Melatonin 3 MG TAB PO SCH (21:00)
[2019-04-20] MEDS: cefTRIAXone\\ROCEPHIN 1 GM in Sodium Chloride 0.9% 100 ML IVPB SCH ×2 (00:16→12:56)
[2019-04-20] MEDS: Albuterol Sulfate 2.5 mg/3 ml Neb NEB SCH ×4 (00:18→20:24)
[2019-04-20] MEDS: Levothyroxine Sodium 100 MCG TAB PO SCH (06:06)
[2019-04-20] MEDS: Levothyroxine Sodium 25 MCG TAB PO SCH (06:06)
[2019-04-20] MEDS: Polyethylene Glycol 3350 17 GM Packet PO SCH (08:32)
[2019-04-20] MEDS: Indomethacin 25 mg Capsule PO SCH ×3 (08:33→20:28)
[2019-04-20] MEDS: Pantoprazole 40 MG GRANULES PACKET PO SCH ×2 (08:33→20:27)
[2019-04-20] MEDS: Aspirin 81 mg Enteric Coated Tablet PO SCH (08:34)
[2019-04-20] MEDS: Folic Acid 1 MG TAB PO SCH (08:34)
[2019-04-20] MEDS: glipiZIDE 5 MG TAB PO SCH (08:34)
[2019-04-20] MEDS: Lisinopril 5 MG TAB PO SCH (08:34)
[2019-04-20] MEDS: Carvedilol 12.5 MG TAB PO SCH ×2 (08:34→20:28)
[2019-04-20] MEDS: Cyanocobalamin (Vitamin B-12) 1,000 MCG TAB PO SCH (08:35)
[2019-04-20] MEDS: HumaLOG 300 UNITS/3 ML VIAL SC PRN ×3 (13:06→20:41)
[2019-04-20] MEDS: Floranex Packet PO SCH (20:27)
[2019-04-20] MEDS: Atorvastatin Calcium 40 MG TAB PO SCH (20:27)
[2019-04-20] MEDS: Melatonin 3 MG TAB PO SCH (20:27)
[2019-04-20] MEDS: Loperamide HCl 2 MG CAP PO SCH (20:28)
[2019-04-20] MEDS: Donepezil HCl 10 MG TAB PO SCH (20:28)
[2019-04-20] MEDS: Bisacodyl 5 MG TAB PO SCH (20:28)
[2019-04-21] MEDS: Albuterol Sulfate 2.5 mg/3 ml Neb NEB SCH ×4 (00:46→18:03)
[2019-04-21] MEDS: cefTRIAXone\\ROCEPHIN 1 GM in Sodium Chloride 0.9% 100 ML IVPB SCH ×2 (00:46→12:00)
[2019-04-21 05:33] LABS: #Basophils 0.1 thou/uL (0.0-0.2); #Eosinphils 0.5 thou/uL (0.0-0.7); #Lymphocytes 1.5 thou/uL (1.20-3.40); #Monocytes 0.5 thou/uL (0.11-0.59); #Neutrophils 4.1 thou/uL (1.40-6.50); %Basophils 1.1 % (0.0-1.0); %Eosinophils 8.1 % (0.0-10.0); %Lymphocytes 22.2 % (21.0-51.0); %Monocytes 7.3 % (0.0-10.0); %Neutrophils 61.3 % (42.0-75.0); Hemoglobin 9.2 g/dL (12.0-16.0); Mean Corpuscular HGB CONC 32.9 g/dL (32.0-36.0); Mean Corpuscular Hemoglobin 27.6 pg (27.0-31.0); Mean Corpuscular Volume 83.8 fL (78.0-98.0); Platelet Count 260 thou/uL (130-400); RBC Distribution Width 14.3 % (11.5-14.5); Red Blood Cell (RBC) Count 3.32 mill/uL (4.20-5.40); White Blood Cell (WBC) Count 6.8 thou/uL (4.8-10.8)
[2019-04-21 05:45] LABS: Anion Gap 13 mmol/L (10-20); BUN (Urea Nitrogen) 12 mg/dL (9.8-20.1); Calc. Creatinine Clearance 47 mL/min (70-130); Calcium 8.9 mg/dL (7.8-10.44); Carbon Dioxide 26 mmol/L (23-31); Chloride 108 mmol/L (98-107); Estimated GFR-MDRD 48; Glucose 145 mg/dL (83-110); Potassium 3.9 mmol/L (3.5-5.1); Sodium 143 mmol/L (136-145)
[2019-04-21] MEDS: Levothyroxine Sodium 100 MCG TAB PO SCH (06:10)
[2019-04-21] MEDS: Levothyroxine Sodium 25 MCG TAB PO SCH (06:10)
[2019-04-21] MEDS: Aspirin 81 mg Enteric Coated Tablet PO SCH (08:20)
[2019-04-21] MEDS: Lisinopril 5 MG TAB PO SCH (08:20)
[2019-04-21] MEDS: Carvedilol 12.5 MG TAB PO SCH ×2 (08:21→21:32)
[2019-04-21] MEDS: Pantoprazole 40 MG GRANULES PACKET PO SCH ×2 (08:21→21:31)
[2019-04-21] MEDS: Folic Acid 1 MG TAB PO SCH (08:22)
[2019-04-21] MEDS: Indomethacin 25 mg Capsule PO SCH ×3 (08:22→21:32)
[2019-04-21] MEDS: glipiZIDE 5 MG TAB PO SCH (08:22)
[2019-04-21] MEDS: Polyethylene Glycol 3350 17 GM Packet PO SCH (08:23)
[2019-04-21] MEDS: Cyanocobalamin (Vitamin B-12) 1,000 MCG TAB PO SCH (08:23)
[2019-04-21] MEDS: HumaLOG 300 UNITS/3 ML VIAL SC PRN ×2 (12:22→18:00)
[2019-04-21] MEDS: HYDROcodone/Acetaminophen 5/325 mg Tablet PO PRN (12:27)
[2019-04-21] MEDS: Floranex Packet PO SCH (21:31)
[2019-04-21] MEDS: Donepezil HCl 10 MG TAB PO SCH (21:31)
[2019-04-21] MEDS: Loperamide HCl 2 MG CAP PO SCH (21:31)
[2019-04-21] MEDS: Bisacodyl 5 MG TAB PO SCH (21:32)
[2019-04-21] MEDS: Melatonin 3 MG TAB PO SCH (21:32)
[2019-04-21] MEDS: Atorvastatin Calcium 40 MG TAB PO SCH (21:32)
[2019-04-22] MEDS: Albuterol Sulfate 2.5 mg/3 ml Neb NEB SCH ×4 (00:25→17:09)
[2019-04-22] MEDS: cefTRIAXone\\ROCEPHIN 1 GM in Sodium Chloride 0.9% 100 ML IVPB SCH ×2 (00:26→11:39)
[2019-04-22] MEDS: Levothyroxine Sodium 100 MCG TAB PO SCH (05:57)
[2019-04-22] MEDS: Levothyroxine Sodium 25 MCG TAB PO SCH (05:57)
[2019-04-22] MEDS: Polyethylene Glycol 3350 17 GM Packet PO SCH (08:43)
[2019-04-22] MEDS: Aspirin 81 mg Enteric Coated Tablet PO SCH (08:47)
[2019-04-22] MEDS: Folic Acid 1 MG TAB PO SCH (08:47)
[2019-04-22] MEDS: Cyanocobalamin (Vitamin B-12) 1,000 MCG TAB PO SCH (08:48)
[2019-04-22] MEDS: glipiZIDE 5 MG TAB PO SCH (08:48)
[2019-04-22] MEDS: Carvedilol 12.5 MG TAB PO SCH ×2 (08:49→20:19)
[2019-04-22] MEDS: Lisinopril 5 MG TAB PO SCH (08:49)
[2019-04-22] MEDS: Indomethacin 25 mg Capsule PO SCH ×3 (08:49→20:18)
[2019-04-22] MEDS: Pantoprazole 40 MG GRANULES PACKET PO SCH ×2 (08:50→20:18)
[2019-04-22] MEDS: HumaLOG 300 UNITS/3 ML VIAL SC PRN ×3 (12:15→21:31)
[2019-04-22] MEDS: Bisacodyl 5 MG TAB PO SCH (20:18)
[2019-04-22] MEDS: Loperamide HCl 2 MG CAP PO SCH (20:18)
[2019-04-22] MEDS: Donepezil HCl 10 MG TAB PO SCH (20:18)
[2019-04-22] MEDS: Atorvastatin Calcium 40 MG TAB PO SCH (20:19)
[2019-04-22] MEDS: Melatonin 3 MG TAB PO SCH (20:19)
[2019-04-22] MEDS: Floranex Packet PO SCH (20:20)
[2019-04-23] MEDS: cefTRIAXone\\ROCEPHIN 1 GM in Sodium Chloride 0.9% 100 ML IVPB SCH ×2 (00:32→12:11)
[2019-04-23] MEDS: Albuterol Sulfate 2.5 mg/3 ml Neb NEB SCH ×4 (00:34→18:21)
[2019-04-23] MEDS: Levothyroxine Sodium 25 MCG TAB PO SCH (06:29)
[2019-04-23] MEDS: Levothyroxine Sodium 100 MCG TAB PO SCH (06:29)
[2019-04-23] MEDS: HumaLOG 300 UNITS/3 ML VIAL SC PRN ×3 (09:17→18:31)
[2019-04-23] MEDS: Pantoprazole 40 MG GRANULES PACKET PO SCH ×2 (09:18→21:06)
[2019-04-23] MEDS: Polyethylene Glycol 3350 17 GM Packet PO SCH (09:18)
[2019-04-23] MEDS: glipiZIDE 5 MG TAB PO SCH (09:20)
[2019-04-23] MEDS: Indomethacin 25 mg Capsule PO SCH ×3 (09:21→21:03)
[2019-04-23] MEDS: Carvedilol 12.5 MG TAB PO SCH ×2 (09:21→21:05)
[2019-04-23] MEDS: Folic Acid 1 MG TAB PO SCH (09:21)
[2019-04-23] MEDS: Aspirin 81 mg Enteric Coated Tablet PO SCH (09:21)
[2019-04-23] MEDS: Lisinopril 5 MG TAB PO SCH (09:21)
[2019-04-23] MEDS: Cyanocobalamin (Vitamin B-12) 1,000 MCG TAB PO SCH (09:22)
[2019-04-23] MEDS: Melatonin 3 MG TAB PO SCH (21:01)
[2019-04-23] MEDS: Bisacodyl 5 MG TAB PO SCH (21:04)
[2019-04-23] MEDS: Loperamide HCl 2 MG CAP PO SCH (21:05)
[2019-04-23] MEDS: Atorvastatin Calcium 40 MG TAB PO SCH (21:05)
[2019-04-23] MEDS: Floranex Packet PO SCH (21:05)
[2019-04-23] MEDS: Donepezil HCl 10 MG TAB PO SCH (21:05)
[2019-04-24] MEDS: cefTRIAXone\\ROCEPHIN 1 GM in Sodium Chloride 0.9% 100 ML IVPB SCH ×2 (00:40→11:55)
[2019-04-24] MEDS: Albuterol Sulfate 2.5 mg/3 ml Neb NEB SCH ×4 (00:40→18:41)
[2019-04-24] MEDS: Levothyroxine Sodium 100 MCG TAB PO SCH (06:14)
[2019-04-24] MEDS: Levothyroxine Sodium 25 MCG TAB PO SCH (06:14)
[2019-04-24] MEDS: HumaLOG 300 UNITS/3 ML VIAL SC PRN ×3 (08:48→18:40)
[2019-04-24] MEDS: Lisinopril 5 MG TAB PO SCH (08:50)
[2019-04-24] MEDS: Polyethylene Glycol 3350 17 GM Packet PO SCH (08:50)
[2019-04-24] MEDS: Indomethacin 25 mg Capsule PO SCH ×3 (08:51→21:18)
[2019-04-24] MEDS: Carvedilol 12.5 MG TAB PO SCH ×2 (08:51→21:18)
[2019-04-24] MEDS: glipiZIDE 5 MG TAB PO SCH (08:51)
[2019-04-24] MEDS: Cyanocobalamin (Vitamin B-12) 1,000 MCG TAB PO SCH (08:51)
[2019-04-24] MEDS: Folic Acid 1 MG TAB PO SCH (08:52)
[2019-04-24] MEDS: Aspirin 81 mg Enteric Coated Tablet PO SCH (08:52)
[2019-04-24] MEDS: Pantoprazole 40 MG GRANULES PACKET PO SCH ×2 (08:52→21:14)
[2019-04-24] MEDS: HYDROcodone/Acetaminophen 10/325 mg Tablet PO PRN (17:18)
[2019-04-24] MEDS: Floranex Packet PO SCH (21:14)
[2019-04-24] MEDS: Bisacodyl 5 MG TAB PO SCH (21:17)
[2019-04-24] MEDS: Melatonin 3 MG TAB PO SCH (21:17)
[2019-04-24] MEDS: Loperamide HCl 2 MG CAP PO SCH (21:17)
[2019-04-24] MEDS: Atorvastatin Calcium 40 MG TAB PO SCH (21:17)
[2019-04-24] MEDS: Donepezil HCl 10 MG TAB PO SCH (21:18)
[2019-04-25] MEDS: cefTRIAXone\\ROCEPHIN 1 GM in Sodium Chloride 0.9% 100 ML IVPB SCH ×2 (00:57→12:17)
[2019-04-25] MEDS: Albuterol Sulfate 2.5 mg/3 ml Neb NEB SCH ×4 (01:03→18:35)
[2019-04-25] MEDS: Levothyroxine Sodium 100 MCG TAB PO SCH (06:13)
[2019-04-25] MEDS: Levothyroxine Sodium 25 MCG TAB PO SCH (06:13)
[2019-04-25] MEDS: HumaLOG 300 UNITS/3 ML VIAL SC PRN ×4 (08:15→20:32)
[2019-04-25] MEDS: Pantoprazole 40 MG GRANULES PACKET PO SCH ×2 (08:20→20:18)
[2019-04-25] MEDS: Folic Acid 1 MG TAB PO SCH (08:21)
[2019-04-25] MEDS: Indomethacin 25 mg Capsule PO SCH ×3 (08:21→20:20)
[2019-04-25] MEDS: Lisinopril 5 MG TAB PO SCH (08:21)
[2019-04-25] MEDS: Aspirin 81 mg Enteric Coated Tablet PO SCH (08:21)
[2019-04-25] MEDS: glipiZIDE 5 MG TAB PO SCH (08:21)
[2019-04-25] MEDS: Polyethylene Glycol 3350 17 GM Packet PO SCH (08:22)
[2019-04-25] MEDS: Cyanocobalamin (Vitamin B-12) 1,000 MCG TAB PO SCH (08:22)
[2019-04-25] MEDS: Carvedilol 12.5 MG TAB PO SCH ×2 (08:22→20:20)
[2019-04-25] MEDS: HYDROcodone/Acetaminophen 10/325 mg Tablet PO PRN (11:00)
[2019-04-25] MEDS: Floranex Packet PO SCH (20:18)
[2019-04-25] MEDS: Bisacodyl 5 MG TAB PO SCH (20:19)
[2019-04-25] MEDS: Loperamide HCl 2 MG CAP PO SCH (20:19)
[2019-04-25] MEDS: Melatonin 3 MG TAB PO SCH (20:19)
[2019-04-25] MEDS: Donepezil HCl 10 MG TAB PO SCH (20:20)
[2019-04-25] MEDS: HYDROcodone/Acetaminophen 5/325 mg Tablet PO PRN (20:20)
[2019-04-25] MEDS: Atorvastatin Calcium 40 MG TAB PO SCH (20:20)
[2019-04-26] MEDS: Albuterol Sulfate 2.5 mg/3 ml Neb NEB SCH ×4 (00:52→19:30)
[2019-04-26] MEDS: cefTRIAXone\\ROCEPHIN 1 GM in Sodium Chloride 0.9% 100 ML IVPB SCH ×2 (00:54→12:30)
[2019-04-26] MEDS: Levothyroxine Sodium 25 MCG TAB PO SCH (05:48)
[2019-04-26] MEDS: Levothyroxine Sodium 100 MCG TAB PO SCH (05:48)
[2019-04-26] MEDS: Aspirin 81 mg Enteric Coated Tablet PO SCH (08:20)
[2019-04-26] MEDS: Folic Acid 1 MG TAB PO SCH (08:20)
[2019-04-26] MEDS: glipiZIDE 5 MG TAB PO SCH (08:20)
[2019-04-26] MEDS: Cyanocobalamin (Vitamin B-12) 1,000 MCG TAB PO SCH (08:20)
[2019-04-26] MEDS: Indomethacin 25 mg Capsule PO SCH ×3 (08:20→20:58)
[2019-04-26] MEDS: Polyethylene Glycol 3350 17 GM Packet PO SCH (08:21)
[2019-04-26] MEDS: Carvedilol 12.5 MG TAB PO SCH ×2 (08:21→20:58)
[2019-04-26] MEDS: Lisinopril 5 MG TAB PO SCH (08:21)
[2019-04-26] MEDS: HumaLOG 300 UNITS/3 ML VIAL SC PRN ×3 (08:22→17:36)
[2019-04-26] MEDS: Pantoprazole 40 MG GRANULES PACKET PO SCH ×2 (08:27→20:56)
[2019-04-26] MEDS: HYDROcodone/Acetaminophen 5/325 mg Tablet PO PRN (09:13)
[2019-04-26] MEDS: traMADol HCl 50 MG TAB PO PRN (12:51)
[2019-04-26] MEDS: Floranex Packet PO SCH (20:55)
[2019-04-26] MEDS: Melatonin 3 MG TAB PO SCH (20:56)
[2019-04-26] MEDS: Bisacodyl 5 MG TAB PO SCH (20:57)
[2019-04-26] MEDS: Loperamide HCl 2 MG CAP PO SCH (20:58)
[2019-04-26] MEDS: Donepezil HCl 10 MG TAB PO SCH (20:58)
[2019-04-26] MEDS: Atorvastatin Calcium 40 MG TAB PO SCH (20:58)
[2019-04-27] MEDS: Albuterol Sulfate 2.5 mg/3 ml Neb NEB SCH ×5 (00:58→20:51)
[2019-04-27] MEDS: cefTRIAXone\\ROCEPHIN 1 GM in Sodium Chloride 0.9% 100 ML IVPB SCH ×2 (00:58→12:09)
[2019-04-27] MEDS: Levothyroxine Sodium 25 MCG TAB PO SCH (06:21)
[2019-04-27] MEDS: Levothyroxine Sodium 100 MCG TAB PO SCH (06:21)
[2019-04-27] MEDS: HumaLOG 300 UNITS/3 ML VIAL SC PRN ×3 (07:50→17:22)
[2019-04-27] MEDS: glipiZIDE 5 MG TAB PO SCH (07:50)
[2019-04-27] MEDS: Aspirin 81 mg Enteric Coated Tablet PO SCH (08:04)
[2019-04-27] MEDS: Cyanocobalamin (Vitamin B-12) 1,000 MCG TAB PO SCH (08:05)
[2019-04-27] MEDS: Indomethacin 25 mg Capsule PO SCH ×3 (08:05→20:51)
[2019-04-27] MEDS: Folic Acid 1 MG TAB PO SCH (08:05)
[2019-04-27] MEDS: Lisinopril 5 MG TAB PO SCH (08:05)
[2019-04-27] MEDS: Carvedilol 12.5 MG TAB PO SCH ×2 (08:05→20:51)
[2019-04-27] MEDS: Pantoprazole 40 MG GRANULES PACKET PO SCH ×2 (08:05→20:50)
[2019-04-27] MEDS: Polyethylene Glycol 3350 17 GM Packet PO SCH (08:06)
[2019-04-27] MEDS: traMADol HCl 50 MG TAB PO PRN (08:09)
[2019-04-27] MEDS: Acetaminophen 325 MG TAB PO PRN (08:10)
[2019-04-27] MEDS: HYDROcodone/Acetaminophen 10/325 mg Tablet PO PRN (10:57)
[2019-04-27] MEDS ORDERED: Furosemide 20 MG TAB PO SCH (14:30)
[2019-04-27] MEDS: HYDROcodone/Acetaminophen 5/325 mg Tablet PO PRN (16:05)
[2019-04-27] MEDS: Donepezil HCl 10 MG TAB PO SCH (20:50)
[2019-04-27] MEDS: Floranex Packet PO SCH (20:50)
[2019-04-27] MEDS: Loperamide HCl 2 MG CAP PO SCH (20:50)
[2019-04-27] MEDS: Bisacodyl 5 MG TAB PO SCH (20:50)
[2019-04-27] MEDS: Melatonin 3 MG TAB PO SCH (20:50)
[2019-04-27] MEDS: Atorvastatin Calcium 40 MG TAB PO SCH (20:51)
[2019-04-28] MEDS: Albuterol Sulfate 2.5 mg/3 ml Neb NEB SCH ×4 (01:04→18:05)
[2019-04-28] MEDS: Levothyroxine Sodium 100 MCG TAB PO SCH (06:05)
[2019-04-28] MEDS: Levothyroxine Sodium 25 MCG TAB PO SCH (06:05)
[2019-04-28] MEDS: HumaLOG 300 UNITS/3 ML VIAL SC PRN ×3 (08:44→20:34)
[2019-04-28] MEDS: Polyethylene Glycol 3350 17 GM Packet PO SCH (08:45)
[2019-04-28] MEDS: glipiZIDE 5 MG TAB PO SCH (08:45)
[2019-04-28] MEDS: Cyanocobalamin (Vitamin B-12) 1,000 MCG TAB PO SCH (08:45)
[2019-04-28] MEDS: Pantoprazole 40 MG GRANULES PACKET PO SCH ×2 (08:46→20:30)
[2019-04-28] MEDS: Folic Acid 1 MG TAB PO SCH (08:46)
[2019-04-28] MEDS: Carvedilol 12.5 MG TAB PO SCH ×2 (08:46→20:31)
[2019-04-28] MEDS: Lisinopril 5 MG TAB PO SCH (08:46)
[2019-04-28] MEDS: Aspirin 81 mg Enteric Coated Tablet PO SCH (08:46)
[2019-04-28] MEDS: Indomethacin 25 mg Capsule PO SCH ×3 (08:46→20:31)
[2019-04-28] MEDS: Bisacodyl 5 MG TAB PO SCH (20:30)
[2019-04-28] MEDS: Loperamide HCl 2 MG CAP PO SCH (20:31)
[2019-04-28] MEDS: Atorvastatin Calcium 40 MG TAB PO SCH (20:31)
[2019-04-28] MEDS: HYDROcodone/Acetaminophen 5/325 mg Tablet PO PRN (20:31)
[2019-04-28] MEDS: Donepezil HCl 10 MG TAB PO SCH (20:31)
[2019-04-28] MEDS: Melatonin 3 MG TAB PO SCH (20:31)
[2019-04-28] MEDS: Floranex Packet PO SCH (20:34)
[2019-04-29] MEDS: Albuterol Sulfate 2.5 mg/3 ml Neb NEB SCH ×4 (00:35→19:09)
[2019-04-29] MEDS: HYDROcodone/Acetaminophen 10/325 mg Tablet PO PRN ×2 (06:10→21:08)
[2019-04-29] MEDS: Levothyroxine Sodium 25 MCG TAB PO SCH (06:10)
[2019-04-29] MEDS: Levothyroxine Sodium 100 MCG TAB PO SCH (06:10)
[2019-04-29] MEDS: Polyethylene Glycol 3350 17 GM Packet PO SCH (09:15)
[2019-04-29] MEDS: HumaLOG 300 UNITS/3 ML VIAL SC PRN ×4 (09:15→20:54)
[2019-04-29] MEDS: Folic Acid 1 MG TAB PO SCH (09:20)
[2019-04-29] MEDS: Carvedilol 12.5 MG TAB PO SCH ×2 (09:20→20:43)
[2019-04-29] MEDS: glipiZIDE 5 MG TAB PO SCH (09:20)
[2019-04-29] MEDS: Pantoprazole 40 MG GRANULES PACKET PO SCH ×2 (09:21→20:43)
[2019-04-29] MEDS: Cyanocobalamin (Vitamin B-12) 1,000 MCG TAB PO SCH (09:21)
[2019-04-29] MEDS: Indomethacin 25 mg Capsule PO SCH ×3 (09:21→20:43)
[2019-04-29] MEDS: Lisinopril 5 MG TAB PO SCH (09:21)
[2019-04-29] MEDS: Aspirin 81 mg Enteric Coated Tablet PO SCH (09:21)
[2019-04-29] MEDS: Bisacodyl 5 MG TAB PO SCH (20:43)
[2019-04-29] MEDS: Loperamide HCl 2 MG CAP PO SCH (20:43)
[2019-04-29] MEDS: Floranex Packet PO SCH (20:43)
[2019-04-29] MEDS: Melatonin 3 MG TAB PO SCH (20:44)
[2019-04-29] MEDS: Atorvastatin Calcium 40 MG TAB PO SCH (20:44)
[2019-04-29] MEDS: Donepezil HCl 10 MG TAB PO SCH (20:44)
[2019-04-30] MEDS: Albuterol Sulfate 2.5 mg/3 ml Neb NEB SCH ×4 (01:55→18:13)
[2019-04-30] MEDS: Levothyroxine Sodium 25 MCG TAB PO SCH (06:14)
[2019-04-30] MEDS: Levothyroxine Sodium 100 MCG TAB PO SCH (06:14)
[2019-04-30] MEDS: Pantoprazole 40 MG GRANULES PACKET PO SCH ×2 (08:29→21:20)
[2019-04-30] MEDS: Polyethylene Glycol 3350 17 GM Packet PO SCH (08:29)
[2019-04-30] MEDS: Indomethacin 25 mg Capsule PO SCH ×3 (08:31→21:20)
[2019-04-30] MEDS: Lisinopril 5 MG TAB PO SCH (08:32)
[2019-04-30] MEDS: glipiZIDE 5 MG TAB PO SCH (08:32)
[2019-04-30] MEDS: Aspirin 81 mg Enteric Coated Tablet PO SCH (08:32)
[2019-04-30] MEDS: Folic Acid 1 MG TAB PO SCH (08:33)
[2019-04-30] MEDS: Carvedilol 12.5 MG TAB PO SCH ×2 (08:33→21:21)
[2019-04-30] MEDS: Cyanocobalamin (Vitamin B-12) 1,000 MCG TAB PO SCH (08:33)
[2019-04-30] MEDS: HumaLOG 300 UNITS/3 ML VIAL SC PRN ×3 (12:40→21:32)
[2019-04-30] MEDS ORDERED: predniSONE 20 MG TAB PO SCH (15:00)
[2019-04-30] MEDS: Bisacodyl 5 MG TAB PO SCH (21:20)
[2019-04-30] MEDS: Floranex Packet PO SCH (21:20)
[2019-04-30] MEDS: Melatonin 3 MG TAB PO SCH (21:20)
[2019-04-30] MEDS: Donepezil HCl 10 MG TAB PO SCH (21:21)
[2019-04-30] MEDS: Atorvastatin Calcium 40 MG TAB PO SCH (21:21)
[2019-04-30] MEDS: Loperamide HCl 2 MG CAP PO SCH (21:21)
[2019-05-01] MEDS: Albuterol Sulfate 2.5 mg/3 ml Neb NEB SCH ×4 (01:18→17:41)
[2019-05-01] MEDS: Levothyroxine Sodium 100 MCG TAB PO SCH (05:56)
[2019-05-01] MEDS: Levothyroxine Sodium 25 MCG TAB PO SCH (05:56)
[2019-05-01] MEDS: HumaLOG 300 UNITS/3 ML VIAL SC PRN ×4 (07:32→22:38)
[2019-05-01] MEDS: glipiZIDE 5 MG TAB PO SCH (07:33)
[2019-05-01] MEDS: Polyethylene Glycol 3350 17 GM Packet PO SCH (09:20)
[2019-05-01] MEDS: Carvedilol 12.5 MG TAB PO SCH ×2 (09:21→22:31)
[2019-05-01] MEDS: Indomethacin 25 mg Capsule PO SCH ×3 (09:21→22:31)
[2019-05-01] MEDS: Pantoprazole 40 MG GRANULES PACKET PO SCH ×2 (09:21→22:31)
[2019-05-01] MEDS: Aspirin 81 mg Enteric Coated Tablet PO SCH (09:21)
[2019-05-01] MEDS: predniSONE 20 MG TAB PO SCH (09:22)
[2019-05-01] MEDS: Folic Acid 1 MG TAB PO SCH (09:22)
[2019-05-01] MEDS: Cyanocobalamin (Vitamin B-12) 1,000 MCG TAB PO SCH (09:22)
[2019-05-01] MEDS: Lisinopril 5 MG TAB PO SCH (09:22)
[2019-05-01] MEDS: Floranex Packet PO SCH (22:30)
[2019-05-01] MEDS: Bisacodyl 5 MG TAB PO SCH (22:31)
[2019-05-01] MEDS: Loperamide HCl 2 MG CAP PO SCH (22:31)
[2019-05-01] MEDS: Atorvastatin Calcium 40 MG TAB PO SCH (22:31)
[2019-05-01] MEDS: Donepezil HCl 10 MG TAB PO SCH (22:31)
[2019-05-01] MEDS: Melatonin 3 MG TAB PO SCH (22:32)
[2019-05-02] MEDS: Albuterol Sulfate 2.5 mg/3 ml Neb NEB SCH ×4 (01:25→19:02)
[2019-05-02] MEDS: Levothyroxine Sodium 100 MCG TAB PO SCH (06:00)
[2019-05-02] MEDS: Levothyroxine Sodium 25 MCG TAB PO SCH (06:00)
[2019-05-02] MEDS: HumaLOG 300 UNITS/3 ML VIAL SC PRN ×4 (08:47→20:48)
[2019-05-02] MEDS: Polyethylene Glycol 3350 17 GM Packet PO SCH (08:48)
[2019-05-02] MEDS: glipiZIDE 5 MG TAB PO SCH (08:49)
[2019-05-02] MEDS: Folic Acid 1 MG TAB PO SCH (08:49)
[2019-05-02] MEDS: Pantoprazole 40 MG GRANULES PACKET PO SCH ×2 (08:49→20:51)
[2019-05-02] MEDS: predniSONE 20 MG TAB PO SCH (08:49)
[2019-05-02] MEDS: Lisinopril 5 MG TAB PO SCH (08:50)
[2019-05-02] MEDS: Carvedilol 12.5 MG TAB PO SCH ×2 (08:50→20:52)
[2019-05-02] MEDS: Indomethacin 25 mg Capsule PO SCH ×3 (08:50→20:50)
[2019-05-02] MEDS: Cyanocobalamin (Vitamin B-12) 1,000 MCG TAB PO SCH (08:50)
[2019-05-02] MEDS: Aspirin 81 mg Enteric Coated Tablet PO SCH (08:50)
[2019-05-02] MEDS: Floranex Packet PO SCH (20:51)
[2019-05-02] MEDS: Bisacodyl 5 MG TAB PO SCH (20:52)
[2019-05-02] MEDS: traMADol HCl 50 MG TAB PO PRN (20:52)
[2019-05-02] MEDS: Donepezil HCl 10 MG TAB PO SCH (20:53)
[2019-05-02] MEDS: Loperamide HCl 2 MG CAP PO SCH (20:54)
[2019-05-02] MEDS: Atorvastatin Calcium 40 MG TAB PO SCH (20:54)
[2019-05-02] MEDS: Melatonin 3 MG TAB PO SCH (21:21)
[2019-05-02] MEDS: HYDROcodone/Acetaminophen 5/325 mg Tablet PO PRN (23:17)
[2019-05-03] MEDS: Albuterol Sulfate 2.5 mg/3 ml Neb NEB SCH ×4 (00:59→18:26)
[2019-05-03] MEDS: Levothyroxine Sodium 25 MCG TAB PO SCH (05:51)
[2019-05-03] MEDS: Levothyroxine Sodium 100 MCG TAB PO SCH (05:51)
[2019-05-03] MEDS: glipiZIDE 5 MG TAB PO SCH (07:30)
[2019-05-03] MEDS ORDERED: predniSONE 10 MG TAB PO SCH (09:00)
[2019-05-03] MEDS ORDERED: Ondansetron ODT 4 MG TAB PO SCH (10:00)
[2019-05-03] MEDS: HumaLOG 300 UNITS/3 ML VIAL SC PRN ×2 (12:52→18:26)
[2019-05-03] MEDS: Loperamide HCl 2 MG CAP PO SCH ×5 (13:13→22:05)
[2019-05-03] MEDS: Polyethylene Glycol 3350 17 GM Packet PO SCH (13:14)
[2019-05-03] MEDS: Carvedilol 12.5 MG TAB PO SCH ×3 (13:21→21:03)
[2019-05-03] MEDS: Aspirin 81 mg Enteric Coated Tablet PO SCH ×2 (13:21→13:33)
[2019-05-03] MEDS: Indomethacin 25 mg Capsule PO SCH ×3 (13:21→21:02)
[2019-05-03] MEDS: Folic Acid 1 MG TAB PO SCH ×2 (13:21→13:33)
[2019-05-03] MEDS: Pantoprazole 40 MG GRANULES PACKET PO SCH ×3 (13:22→21:05)
[2019-05-03 13:24] LABS: ALT (SGPT) 16 U/L (8-55); AST (SGOT) 14 U/L (5-34); Albumin 3.4 g/dL (3.4-4.8); Alkaline Phosphatase 72 U/L (40-110); Anion Gap 18 mmol/L (10-20); BUN (Urea Nitrogen) 39 mg/dL (9.8-20.1); Bilirubin, Total 0.5 mg/dL (0.2-1.2); Calc. Creatinine Clearance 24 mL/min (70-130); Calcium 9.7 mg/dL (7.8-10.44); Carbon Dioxide 24 mmol/L (23-31); Chloride 102 mmol/L (98-107); Estimated GFR-MDRD 23; Globulin 3.2 g/dL (2.4-3.5); Glucose 232 mg/dL (83-110); Potassium 5.1 mmol/L (3.5-5.1); Protein, Total 6.6 g/dL (6.0-8.3); Sodium 139 mmol/L (136-145)
[2019-05-03 13:26] LABS: Hemoglobin 10.9 g/dL (12.0-16.0); Mean Corpuscular HGB CONC 31.6 g/dL (32.0-36.0); Mean Corpuscular Volume 85.4 fL (78.0-98.0); Mean Platelet Volume 6.5 fL (7.4-10.4); Platelet Count 332 thou/uL (130-400); RBC Distribution Width 14.3 % (11.5-14.5); Red Blood Cell (RBC) Count 4.04 mill/uL (4.20-5.40); White Blood Cell (WBC) Count 23.5 thou/uL (4.8-10.8)
[2019-05-03] MEDS: Cyanocobalamin (Vitamin B-12) 1,000 MCG TAB PO SCH (13:28)
[2019-05-03] MEDS: Lisinopril 5 MG TAB PO SCH (13:29)
[2019-05-03 13:38] LABS: Lymphocytes 19 % (21-51); MDiff Complete? YES; Monocytes 5 % (0-10); Neutrophil 76 % (42-75); Platelet Morphology Comment Appears Adequate; RBC Morphology Normal
[2019-05-03] MEDS ORDERED: Sodium Chloride 0.9% 500 ML IV SCH ×2 (15:30→16:15)
[2019-05-03] MEDS ORDERED: Sodium Chloride 0.9% 500 ML IVPB SCH (16:15)
[2019-05-03] MEDS: Donepezil HCl 10 MG TAB PO SCH (21:02)
[2019-05-03] MEDS: Floranex Packet PO SCH (21:02)
[2019-05-03] MEDS: Melatonin 3 MG TAB PO SCH (21:03)
[2019-05-03] MEDS: Bisacodyl 5 MG TAB PO SCH (21:03)
[2019-05-03] MEDS: Atorvastatin Calcium 40 MG TAB PO SCH (21:05)
[2019-05-03] MEDS: Acetaminophen 325 MG TAB PO PRN (21:20)
[2019-05-04] MEDS: Albuterol Sulfate 2.5 mg/3 ml Neb NEB SCH ×4 (01:11→18:38)
[2019-05-04 05:00] LABS: #Basophils 0.1 thou/uL (0.0-0.2); #Eosinphils 0.8 thou/uL (0.0-0.7); #Lymphocytes 3.6 thou/uL (1.20-3.40); #Monocytes 0.7 thou/uL (0.11-0.59); #Neutrophils 9.2 thou/uL (1.40-6.50); %Basophils 0.9 % (0.0-1.0); %Eosinophils 5.6 % (0.0-10.0); %Lymphocytes 25.1 % (21.0-51.0); %Monocytes 4.8 % (0.0-10.0); %Neutrophils 63.6 % (42.0-75.0); Hemoglobin 9.5 g/dL (12.0-16.0); Mean Corpuscular Hemoglobin 27.1 pg (27.0-31.0); Mean Corpuscular Volume 84.7 fL (78.0-98.0); Mean Platelet Volume 6.6 fL (7.4-10.4); Platelet Count 270 thou/uL (130-400); RBC Distribution Width 14.5 % (11.5-14.5); White Blood Cell (WBC) Count 14.4 thou/uL (4.8-10.8)
[2019-05-04 05:14] LABS: Anion Gap 16 mmol/L (10-20); BUN (Urea Nitrogen) 46 mg/dL (9.8-20.1); Calc. Creatinine Clearance 23 mL/min (70-130); Calcium 8.9 mg/dL (7.8-10.44); Carbon Dioxide 23 mmol/L (23-31); Chloride 103 mmol/L (98-107); Estimated GFR-MDRD 21; Glucose 101 mg/dL (83-110); Potassium 5.1 mmol/L (3.5-5.1); Sodium 137 mmol/L (136-145)
[2019-05-04] MEDS: Levothyroxine Sodium 100 MCG TAB PO SCH (06:26)
[2019-05-04] MEDS: Levothyroxine Sodium 25 MCG TAB PO SCH (06:27)
[2019-05-04] MEDS ORDERED: Sodium Chloride 0.9% 500 ML IV SCH (07:30)
[2019-05-04] MEDS: Lisinopril 5 MG TAB PO SCH (08:23)
[2019-05-04] MEDS: glipiZIDE 5 MG TAB PO SCH (08:23)
[2019-05-04] MEDS: Carvedilol 12.5 MG TAB PO SCH ×2 (08:24→21:42)
[2019-05-04] MEDS: Cyanocobalamin (Vitamin B-12) 1,000 MCG TAB PO SCH (08:24)
[2019-05-04] MEDS: Pantoprazole 40 MG GRANULES PACKET PO SCH ×2 (08:24→21:41)
[2019-05-04] MEDS: Loperamide HCl 2 MG CAP PO SCH ×4 (08:24→21:42)
[2019-05-04] MEDS: Aspirin 81 mg Enteric Coated Tablet PO SCH (08:24)
[2019-05-04] MEDS: Indomethacin 25 mg Capsule PO SCH ×3 (08:24→21:42)
[2019-05-04] MEDS: Folic Acid 1 MG TAB PO SCH (08:24)
[2019-05-04] MEDS: Polyethylene Glycol 3350 17 GM Packet PO SCH (08:25)
[2019-05-04] MEDS: Sodium Chloride 0.9% 1,000 ML IV SCH ×3 (08:25→18:40)
[2019-05-04] MEDS: Floranex Packet PO SCH (21:41)
[2019-05-04] MEDS: Atorvastatin Calcium 40 MG TAB PO SCH (21:41)
[2019-05-04] MEDS: Donepezil HCl 10 MG TAB PO SCH (21:41)
[2019-05-04] MEDS: Melatonin 3 MG TAB PO SCH (21:41)
[2019-05-04] MEDS: Bisacodyl 5 MG TAB PO SCH (21:42)
[2019-05-04] MEDS: HumaLOG 300 UNITS/3 ML VIAL SC PRN (22:09)
[2019-05-05] MEDS: Acetaminophen 325 MG TAB PO PRN (00:37)
[2019-05-05] MEDS: Albuterol Sulfate 2.5 mg/3 ml Neb NEB SCH ×4 (01:07→21:49)
[2019-05-05 04:16] LABS: #Basophils 0.1 thou/uL (0.0-0.2); #Eosinphils 0.9 thou/uL (0.0-0.7); #Lymphocytes 2.3 thou/uL (1.20-3.40); #Monocytes 0.6 thou/uL (0.11-0.59); #Neutrophils 4.2 thou/uL (1.40-6.50); %Basophils 1.3 % (0.0-1.0); %Lymphocytes 28.8 % (21.0-51.0); %Monocytes 6.9 % (0.0-10.0); Hemoglobin 9.1 g/dL (12.0-16.0); Mean Corpuscular HGB CONC 32.4 g/dL (32.0-36.0); Mean Corpuscular Hemoglobin 27.3 pg (27.0-31.0); Mean Corpuscular Volume 84.1 fL (78.0-98.0); Mean Platelet Volume 6.4 fL (7.4-10.4); Platelet Count 243 thou/uL (130-400); RBC Distribution Width 14.3 % (11.5-14.5); Red Blood Cell (RBC) Count 3.34 mill/uL (4.20-5.40); White Blood Cell (WBC) Count 8.1 thou/uL (4.8-10.8)
[2019-05-05 04:32] LABS: Anion Gap 14 mmol/L (10-20); BUN (Urea Nitrogen) 37 mg/dL (9.8-20.1); Calc. Creatinine Clearance 31 mL/min (70-130); Calcium 8.8 mg/dL (7.8-10.44); Carbon Dioxide 22 mmol/L (23-31); Chloride 108 mmol/L (98-107); Estimated GFR-MDRD 30; Glucose 130 mg/dL (83-110); Potassium 4.5 mmol/L (3.5-5.1); Sodium 139 mmol/L (136-145)
[2019-05-05] MEDS: Levothyroxine Sodium 100 MCG TAB PO SCH (06:14)
[2019-05-05] MEDS: Levothyroxine Sodium 25 MCG TAB PO SCH (06:14)
[2019-05-05] MEDS: Folic Acid 1 MG TAB PO SCH (09:20)
[2019-05-05] MEDS: Indomethacin 25 mg Capsule PO SCH (09:21)
[2019-05-05] MEDS: Aspirin 81 mg Enteric Coated Tablet PO SCH (09:21)
[2019-05-05] MEDS: Loperamide HCl 2 MG CAP PO SCH ×5 (09:21→21:58)
[2019-05-05] MEDS: glipiZIDE 5 MG TAB PO SCH (09:21)
[2019-05-05] MEDS: Lisinopril 5 MG TAB PO SCH (09:22)
[2019-05-05] MEDS: Cyanocobalamin (Vitamin B-12) 1,000 MCG TAB PO SCH (09:22)
[2019-05-05] MEDS: Carvedilol 12.5 MG TAB PO SCH ×2 (09:25→21:57)
[2019-05-05] MEDS: Pantoprazole 40 MG GRANULES PACKET PO SCH ×2 (09:25→21:57)
[2019-05-05] MEDS: Polyethylene Glycol 3350 17 GM Packet PO SCH (09:26)
[2019-05-05 10:42] VITALS: BMI 27.9
[2019-05-05] MEDS: HumaLOG 300 UNITS/3 ML VIAL SC PRN ×3 (12:30→22:13)
[2019-05-05] MEDS: HYDROcodone/Acetaminophen 5/325 mg Tablet PO PRN ×2 (15:31→21:58)
[2019-05-05] MEDS: Atorvastatin Calcium 40 MG TAB PO SCH (21:57)
[2019-05-05] MEDS: Melatonin 3 MG TAB PO SCH (21:57)
[2019-05-05] MEDS: Donepezil HCl 10 MG TAB PO SCH (21:57)
[2019-05-05] MEDS: Bisacodyl 5 MG TAB PO SCH (21:57)
[2019-05-05] MEDS: Floranex Packet PO SCH (21:57)
[2019-05-06] MEDS: Albuterol Sulfate 2.5 mg/3 ml Neb NEB SCH ×4 (01:37→19:09)
[2019-05-06] MEDS: Levothyroxine Sodium 25 MCG TAB PO SCH (05:19)
[2019-05-06] MEDS: Levothyroxine Sodium 100 MCG TAB PO SCH (05:19)
[2019-05-06] MEDS: glipiZIDE 5 MG TAB PO SCH (08:50)
[2019-05-06] MEDS: Cyanocobalamin (Vitamin B-12) 1,000 MCG TAB PO SCH (08:52)
[2019-05-06] MEDS: Folic Acid 1 MG TAB PO SCH (08:53)
[2019-05-06] MEDS: Aspirin 81 mg Enteric Coated Tablet PO SCH (08:53)
[2019-05-06] MEDS: Lisinopril 5 MG TAB PO SCH (08:53)
[2019-05-06] MEDS: Pantoprazole 40 MG GRANULES PACKET PO SCH ×2 (08:53→20:25)
[2019-05-06] MEDS: Carvedilol 12.5 MG TAB PO SCH ×2 (08:53→20:28)
[2019-05-06] MEDS: Polyethylene Glycol 3350 17 GM Packet PO SCH (08:54)
[2019-05-06] MEDS: Loperamide HCl 2 MG CAP PO SCH ×4 (08:54→20:29)
[2019-05-06] MEDS ORDERED: predniSONE 10 MG TAB PO SCH (09:00)
[2019-05-06] MEDS: HumaLOG 300 UNITS/3 ML VIAL SC PRN ×2 (12:17→17:12)
[2019-05-06] MEDS: HYDROcodone/Acetaminophen 5/325 mg Tablet PO PRN (13:56)
[2019-05-06] MEDS: Floranex Packet PO SCH (20:25)
[2019-05-06] MEDS: Melatonin 3 MG TAB PO SCH (20:28)
[2019-05-06] MEDS: Atorvastatin Calcium 40 MG TAB PO SCH (20:28)
[2019-05-06] MEDS: Donepezil HCl 10 MG TAB PO SCH (20:29)
[2019-05-06] MEDS: Bisacodyl 5 MG TAB PO SCH (20:36)
[2019-05-07] MEDS: Albuterol Sulfate 2.5 mg/3 ml Neb NEB SCH ×2 (03:38→06:28)
[2019-05-07] MEDS: Levothyroxine Sodium 100 MCG TAB PO SCH (06:26)
[2019-05-07] MEDS: Levothyroxine Sodium 25 MCG TAB PO SCH (06:26)
[2019-05-07] MEDS: HYDROcodone/Acetaminophen 5/325 mg Tablet PO PRN (06:27)
[2019-05-07 06:39] VITALS: TEMP 98
[2019-05-07] MEDS: Loperamide HCl 2 MG CAP PO SCH (08:42)
[2019-05-07] MEDS: Pantoprazole 40 MG GRANULES PACKET PO SCH (08:42)
[2019-05-07] MEDS: glipiZIDE 5 MG TAB PO SCH (08:42)
[2019-05-07] MEDS: Aspirin 81 mg Enteric Coated Tablet PO SCH (08:43)
[2019-05-07] MEDS: Folic Acid 1 MG TAB PO SCH (08:43)
[2019-05-07] MEDS: Carvedilol 12.5 MG TAB PO SCH (08:43)
[2019-05-07 08:44] VITALS: BP 146/79
[2019-05-07] MEDS: Cyanocobalamin (Vitamin B-12) 1,000 MCG TAB PO SCH (08:44)
[2019-05-07] MEDS: Lisinopril 5 MG TAB PO SCH (08:44)
[2019-05-07] MEDS: Polyethylene Glycol 3350 17 GM Packet PO SCH (08:56)
== END 2019-05-07 12:30 | disposition home or self-care (01) | DRG 947 ==
LOC: BURMED 14:54
PROVIDERS: ADMIT Family Medicine; ATTEND Family Medicine
DX: R53.81 Other malaise (principal); A41.9 Sepsis, unspecified organism; N39.0 Urinary tract infection, site not specified; N17.9 Acute kidney failure, unspecified; N13.30 Unspecified hydronephrosis; N18.3 Chronic kidney disease, stage 3 (moderate); D64.9 Anemia, unspecified; E03.9 Hypothyroidism, unspecified; Z66 Do not resuscitate; I12.9 Hypertensive chronic kidney disease with stage 1 through stage 4 chronic kidney disease, or unspecified chronic kidney disease; I25.10 Atherosclerotic heart disease of native coronary artery without angina pectoris; K21.9 Gastro-esophageal reflux disease without esophagitis; M19.91 Primary osteoarthritis, unspecified site; E66.9 Obesity, unspecified; I49.5 Sick sinus syndrome; Z90.49 Acquired absence of other specified parts of digestive tract; Z90.710 Acquired absence of both cervix and uterus; Z90.89 Acquired absence of other organs; Z88.0 Allergy status to penicillin; T38.0X5A Adverse effect of glucocorticoids and synthetic analogues, initial encounter; E09.65 Drug or chemical induced diabetes mellitus with hyperglycemia
CPT/HCPCS: 36415; 36416; 80048; 80053; 84443; 85025; 87324; 87449; 87493; J0696; J3490; J7050; J7512; J7611; Q0162; Q0169